=== PATIENT | female | born 1950 | race Caucasian/White ===

== ENCOUNTER 2022-04-15 19:25 | Emergency (ER) | payer MEDICARE, OTHER, SELFPAY ==
[2022-04-15] VITALS (9 sets, daily range): BP systolic 111–150; BP diastolic 59–93; PULSE 78–84; RESP 11–32; TEMP 36.4; O2SAT 95–98
--- NOTE | ~2022-04-15 | CT_ITS ---
EXAMINATION: CT chest abdomen pelvis wo con DATE: 04/15/2022 20:21 INDICATION: epigastric chest pain. BACK PAIN. HX OF CANCER IN NECK. . TECHNIQUE: Computed tomography (CT) of the chest, abdomen, and pelvis was performed without intraveno us contrast. Automated exposure control and iterative reconstruction technique were employed. The dos e-length product was 609.02 mGy-cm. COMPARISON: None FINDINGS: Thoracic aorta: Mild ectasia and arch calcification. Anemia. Lung parenchyma and airways: Emphysematous change. Bibasilar scar/atelectasis. Thoracic inlet, axillae and chest wall: No thyroid or soft tissue mass. No axillary lymphadenopathy. Tracheostomy tube, in good position. Mediastinum: No mass or lymphadenopathy. Heart and pericardium: Normal heart size. Mild aortic valve calcification. No pericardial effusion. Coronary artery calcifications: Absent. Pleura: No effusion or mass. Thoracic bones: No acute osseous finding in the chest. ABDOMEN/PELVIS: Liver: Normal. Biliary/Gallbladder: Gallbladder is normal. No bile duct dilation. Pancreas: No mass or duct dilation. Spleen: Normal. Adrenals:No mass. Kidneys: No mass, stone, or hydronephrosis on the right. Status post left nephrectomy. GI tract: PEG tube in good position, the skin thickening and a suggestion of mild inflammatory change along the tract. No small or large bowel dilation. Normal appendix. Diverticulosis, without divertic ulitis. Mesentery/Peritoneum: No ascites, mass, or free air. Retroperitoneum: No mass. Atherosclerotic abdominal aortic and/or arterial calcifications. Pelvis: The bladder is mostly decompressed. Uterus likely surgically absent. Soft Tissues: Uncomplicated bilateral fat-containing inguinal hernias. Abdominopelvic bones: No acute osseous finding in the abdomen/pelvis. IMPRESSION: Question of inflammation about the PEG tube tract, correlate clinically. Otherwise, no acute finding in the chest, abdomen, or pelvis. Reviewed, dictated and finalized at location [facility]. IMPRESSION: Question of inflammation about the PEG tube tract, correlate clinically. Otherw ise, no acute finding in the chest, abdomen, or pelvis.
--- NOTE | 2022-04-15 19:31 | ECG_ITS ---
Measurements Intervals [place] Rate: 80 P: 70 OR: 156 QRS: 95 QRSD: 93 T: 57 QT: 336 QTc: 388 Interpretive Statements SINUS RHYTHM BORDERLINE RIGHT AXIS DEVIATION [QRS AXIS > 90] LOW QRS VOLTAGE IN PRECORDIAL LEADS [QRS DEFLECTION < 1.0 mV IN CHEST LEADS] MINIMAL ST DEPRESSION [0.025+ mV ST DEPRESSION] NO PREVIOUS ECG AVAILABLE FOR COMPARISON Electronically Signed On 04-18-2022 19:37:22 CDT by Kayleigh Muñoz M.D.
[2022-04-15 19:50] LABS: Base Excess ABG -0.8 mmol/L (0-2); HCO3 ABG 22.5 mmol/L (23-29); Oxygen Content ABG 16.8 %vol (16.0-22.0); Oxygen Saturation ABG 96.4 % (95-97); Oxyhemoglobin 95.7 % (94-100); PCO2 ABG 32.9 mmHg (35-45); PO2 ABG 84.7 mmHg (75-85); Total Hemoglobin 12.4 g/dL (12.0-18.0); pH ABG 7.45 (7.35-7.45)
[2022-04-15 19:51] LABS: Modified Allen's Test Pass; Site Drawn LEFT RADIAL
[2022-04-15 19:51] LABS: Basophils Absolute Auto 0.03 K/mm3 (0.00-0.10); Basophils Percent Auto 0.6 % (0.0-1.0); Eosinophils Absolute Auto 0.04 K/mm3 (0.02-0.50); Eosinophils Percent Auto 0.9 % (1.0-6.0); Hematocrit 37.3 % (35.0-42.0); Hemoglobin 11.6 g/dL (11.7-13.8); Immature Granulocyte Absolute 0.01 K/mm3 (0.00-0.00); Immature Granulocyte Percent A 0.2 % (0.0-0.0); Lymphocytes Absolute Auto 0.75 K/mm3 (1.10-4.50); Lymphocytes Percent Auto 16.2 % (18.0-42.0); Mean Corpuscular HGB Conc 31.1 g/dL (32.0-36.0); Mean Corpuscular Hemoglobin 27.6 pg (27.0-31.0); Mean Corpuscular Volume 88.8 fL (78.0-102.0); Mean Platelet Volume 9.9 fl (9.2-11.8); Monocytes Absolute Auto 0.37 K/mm3 (0.10-0.90); Neutrophils Absolute Auto 3.4 K/mm3 (1.7-7.2); Neutrophils Percent Auto 74.1 % (50.0-70.0); Platelet Count Result 184 K/mm3 (150-420); Red Cell Distribution Width 13.5 % (11.6-14.4); White Blood Count 4.6 K/mm3 (4.8-10.8)
[2022-04-15 19:52] LABS: Device ROOM AIR
[2022-04-15] MEDS: ASPIRIN 81 MG CHEWABLE TABLET 324 MG PO (19:52)
[2022-04-15] MEDS: ONDANSETRON INJ 4 MG/2 ML VIAL IV PUSH (19:56)
[2022-04-15] MEDS: MORPHINE SULFATE (*CRX) 2 MG/ML INJ IV PUSH (19:57)
[2022-04-15] MEDS: NITROGLYCERIN SL 0.4 MG TABLET SUBLINGUAL (19:59)
[2022-04-15] MEDS: IPRATROPIUM 0.5 MG/ALBUTEROL SULFATE 2.5 MG AMPUL.NEB 3 ML INHALATION (20:00)
--- NOTE | 2022-04-15 20:01 | ED.CHESTPAIN ---
HPI - Chest Pain General Chief Complaint: Chest Pain Stated Complaint: back, chest pain Time Seen by Provider: 04/15/22 19:30 Source: patient and RN notes reviewed Mode of arrival: ambulatory Limitations: no limitations History of Present Illness MD complaint: chest pain and other (chronic mid back pain) Pertinent past history: other (COPD, tracheostomy post cancer Tx) Onset (ago): hour(s) (6) Timing of current episode: constant Prior episodes: Yes Onset: during rest Pain location: substernal and epigastric Pain radiation: back Severity: moderate Pain scale (0-10): 7 Quality: aching and dull Relieving factors: nothing Exacerbating factors: nothing Treatment prior to arrival: none Risk Factors Coronary artery disease risk factors: smoking history Related Data On Oral Contraceptives: No Home Medications Medication Instructions Recorded Confirmed albuterol sulfate 2.5 mg/3 mL 2.5 mg inhalation Q4-6H 04/15/22 04/15/22 (0.083 %) solution for nebulization amoxicillin 875 mg-potassium 1 tablet PO BID 04/15/22 04/15/22 clavulanate 125 mg tablet atorvastatin 40 mg tablet 40 mg PO DAILY 04/15/22 04/15/22 cetirizine 10 mg tablet 10 mg PO DAILY 04/15/22 04/15/22 famotidine 40 mg tablet 40 mg PO DAILY 04/15/22 04/15/22 lidocaine 5 % topical patch 1 patch transdermal Q12-24H 04/15/22 04/15/22 metoprolol succinate 25 mg 25 mg PO DAILY 04/15/22 04/15/22 tablet,extended release 24 hr omeprazole 40 mg capsule,delayed 40 mg PO DAILY 04/15/22 04/15/22 release tramadol 50 mg tablet 50 mg PO PRN PRN Pain 04/15/22 04/15/22 trazodone 100 mg tablet 100 mg PO HS 04/15/22 04/15/22 Allergies Allergy/AdvReac Type Severity Reaction Status Date / Time No Known Allergies Allergy Verified 04/15/22 19:40 Review of Systems Review of Systems: All systems reviewed & are unremarkable except as noted in HPI and below Constitutional: Constitutional: Reports no additional constitutional complaints Eyes: Eyes: Reports no additional eye complaints ENT: Reports system reviewed and no additional complaints, except as documented Cardiovascular: Cardiovascular: Reports chest pain Respiratory: Respiratory: Reports no additional respiratory complaints Gastrointestinal: Gastrointestinal: Reports no additional gastrointestinal complaints Genitourinary: Genitourinary: Reports no additional female genitourinary complaints Musculoskeletal: Musculoskeletal: Reports back pain Integumentary/Breasts: Skin/Breast: Reports system reviewed and no additional complaints, except as docu Neurologic: Reports system reviewed and no additional complaints, except as documented Psychiatric: Psychiatric: Reports no additional psychiatric complaints Endocrine: Endocrine: Reports no additional endocrine complaints Hematologic/Lymphatic: Hematologic/Lymphatic: Reports no additional hematologic/lymphatic complaints Allergic/Immunologic: Allergic/Immunologic: Reports no additional allergic/immunologic complaints PMFSH Past Medical History Medical History Back pain Chest pain of uncertain etiology Gastritis Exam Const: General: no acute distress and well nourished Nutritional Appearance: well nourished Orientation/consciousness: patient oriented x3 Limitations: no limitations HENMT: Head: normal to inspection Ears: external ears normal, TM's normal bilaterally and EAC's normal Face/Nose/Sinus: Normal external nose present, Normal nares present, normal facial exam and sinuses nontender Face and sinus: normal facial exam and sinuses nontender Mouth: Yes Normal oral and palatal mucosa present and Yes moist mucous membranes Teeth and gingiva: dentition normal Throat: posterior oropharynx normal Other: tracheostomy---function status quo. Eyes: Conjunctivae: conjunctivae normal Pupils: Equal, round and reactive pupils present EOM: EOMs intact bilaterally Neck: Neck: normal visual inspection
[2022-04-15] MEDS: methylPREDNISolone SOD SUCC 125 MG VIAL IV PUSH (20:07)
[2022-04-15 20:13] LABS: Alanine Aminotransferase 26 U/L (14-59); Albumin Level 3.7 g/dL (3.4-5.0); Alkaline Phosphatase 101 U/L (46-116); Anion Gap 8 mmol/L (8-16); Aspartate Amino Transferase 35 U/L (15-37); Bilirubin,Total 0.3 mg/dL (0.00-1.00); Blood Urea Nitrogen 18 mg/dL (7-18); Calcium 9.1 mg/dL (8.5-10.1); Carbon Dioxide 28 mmol/L (21-32); Chloride 100 mmol/L (98-108); Estimated CRCL calculation 37 ml/min; Estimated Glomerular Filt Rate 50; Glucose 111 mg/dL (70-99); Lipase 315 U/L (73-393); NT Pro B Type Natriuretic Pept 237 pg/mL (0-125); Osmolality Calculated 284 mOsm/kg (285-295); Sodium 136 mmol/L (136-145); Total Protein 7.3 g/dL (6.4-8.2)
[2022-04-15 20:14] LABS: Troponin I 4.1 ng/L (0.00-60.4)
== END 2022-04-15 21:30 | disposition home or self-care (01) ==
PROVIDERS: Emergency Provider Emergency Medicine
DX: R07.89 Other chest pain (principal); K29.70 Gastritis, unspecified, without bleeding; M54.9 Dorsalgia, unspecified
CPT/HCPCS: 36415; 36600; 71250; 74176; 80053; 82805; 83690; 83880; 84484; 85025; 93005; 94640; 96374; 96375; 99284; A9270; J2270; J2405; J2930

== ENCOUNTER 2023-07-22 10:11 | Emergency (ER) | payer MEDICARE, OTHER, SELFPAY ==
[2023-07-22] VITALS (34 sets, daily range): BP systolic 99–186; BP diastolic 48–147; PULSE 85–126; RESP 17–20; TEMP 36.9–37.1; O2SAT 83–100
--- NOTE | ~2023-07-22 | XR_ITS ---
EXAMINATION: XR chest 1V portable DATE: 07/22/2023 11:20 INDICATION: Shortness of breath TECHNIQUE: frontal view of the chest was obtained. COMPARISON: Chest radiograph dated 05/12/[address] dated 04/25/2022 FINDINGS: Mild emphysema with unchanged mild right apical pleural-parenchymal scarring. New pleural-based mass at the lateral right midlung zone and additional masslike opacity projecting over the central aspect of the right lower lung zone. Hazy opacity in the right lower lung zone with blunting at the and righ t costophrenic and cardiophrenic angles consistent with small pleural effusion with associated atelec tasis and/or pneumonia. Persistent mild discoid atelectasis/scarring at the lingula. No pulmonary eren ma, pneumothorax or left-sided pleural effusion. There are a few surgical clips project over the base of the neck and left upper chest. Heart size is normal. IMPRESSION: 1. Mild emphysema with new masslike opacities in the right mid and lower lung zone which are concerni ng for malignancy or metastatic disease. Recommend further evaluation with contrast-enhanced CT, at l east of the chest but would also consider including the abdomen and pelvis to assess for any addition al lesions suspicious for primary malignancy or metastatic disease. 2. Small right pleural effusion. Reviewed, dictated and finalized at location A. E PRODUCT FABRICATOR IMPRESSION: 1. Mild emphysema with new masslike opacities in the right mid and lower lung z one which are concerning for malignancy or metastatic disease. Recommend furthe r evaluation with contrast-enhanced CT, at least of the chest but would also co nsider including the abdomen and pelvis to assess for any additional lesions smith spicious for primary malignancy or metastatic disease. 2. Small right pleural effusion.
--- NOTE | ~2023-07-22 | CT_ITS ---
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 Dose reduction technique was used on this scan by joselyn vasquez automated exposure control and iterative reconstruction technique. The dose-length product (DL P) was 542.82 mGy-cm. COMPARISON: 04/15/2022 Findings: There is no evidence of any significant mediastinal, hilar or axillary lymphadenopathy. The mediastin al soft tissues and vascular structures appear normal. No pericardial effusion. There is a 4.3 cm probable necrotic lesion at the right lower lobe. Small right pleural effusion pres ent. No left pleural effusion. There is mild emphysema. The liver, spleen, pancreas, gallbladder, adrenals and right kidney are within normal limits. Patient status post left nephrectomy. No evidence of aortic aneurysm. No lymphadenopathy. No bowel obstruction or bowel wall thickening. There is no evidence to suggest acute appendicitis. Urinary bladder is unremarkable. No pelvic mass seen. No ascites. Impression: 4.3 cm probable necrotic lesion at the right lower lobe, suspicious for metastatic lesion given histo ry. Small right pleural effusion with mild bibasilar atelectatic change. Status post left nephrectomy. Reviewed, dictated and finalized at [facility]. NE BOSS Impression: 4.3 cm probable necrotic lesion at the right lower lobe, suspicious for metasta tic lesion given history. Small right pleural effusion with mild bibasilar atelectatic change. Status post left nephrectomy.
--- NOTE | 2023-07-22 10:19 | ED.SOB ---
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 No fever or chills MD elicited complaint: shortness of breath and pain with inspiration Pertinent past history: COPD Onset (ago): day(s) ( 5 days) Exacerbating factors: exertion Relieving factors: nothing Known history of: COPD Associated symptoms: pain with inspiration and sputum production Treatment prior to arrival: bronchodilator Related Data Home oxygen amount: none Home Medications Medication Instructions Recorded Confirmed albuterol sulfate 2.5 mg/3 mL 2.5 mg inhalation Q4-6H 04/15/22 04/15/22 (0.083 %) solution for nebulization amoxicillin 875 mg-potassium 1 tablet feeding tube BID 04/15/22 04/15/22 clavulanate 125 mg tablet atorvastatin 40 mg tablet 40 mg feeding tube DAILY 04/15/22 04/15/22 cetirizine 10 mg tablet 10 mg feeding tube DAILY 04/15/22 04/15/22 famotidine 40 mg tablet 40 mg feeding tube DAILY 04/15/22 04/15/22 lidocaine 5 % topical patch 1 patch transdermal Q12-24H 04/15/22 04/15/22 metoprolol succinate 25 mg 25 mg PO DAILY 04/15/22 04/15/22 tablet,extended release 24 hr omeprazole 40 mg capsule,delayed 40 mg feeding tube DAILY 04/15/22 04/15/22 release oxycodone 5 mg capsule 5 mg feeding tube PRN PRN Pain 04/15/22 04/15/22 trazodone 100 mg tablet 100 mg feeding tube HS 04/15/22 04/15/22 Allergies Allergy/AdvReac Type Severity Reaction Status Date / Time No Known Allergies Allergy Verified 07/22/23 10:17 Review of Systems Review of Systems: All systems reviewed & are unremarkable except as noted in HPI and below Constitutional: Constitutional: Reports as per HPI and Reports no additional constitutional complaints Eyes: Eyes: Reports as per HPI and Reports no additional eye complaints ENT: Reports system reviewed and no additional complaints, except as documented and Reports as per HPI Cardiovascular: Cardiovascular: Reports as per HPI and Reports no additional cardiovascular complaints Respiratory: Respiratory: Reports as per HPI, Reports chest congestion and Reports dyspnea Gastrointestinal: Gastrointestinal: Reports as per HPI and Reports no additional gastrointestinal complaints Genitourinary: Genitourinary: Reports no additional female genitourinary complaints and Reports as per HPI Musculoskeletal: Musculoskeletal: Reports no additional musculoskeletal complaints, Reports as per HPI and Reports back pain Integumentary/Breasts: Skin/Breast: Reports system reviewed and no additional complaints, except as docu and Reports as per HPI Neurologic: Reports system reviewed and no additional complaints, except as documented and Reports as per HPI Psychiatric: Psychiatric: Reports no additional psychiatric complaints and Reports as per HPI Endocrine: Endocrine: Reports no additional endocrine complaints and Reports as per HPI Hematologic/Lymphatic: Hematologic/Lymphatic: Reports no additional hematologic/lymphatic complaints and Reports as per HPI Allergic/Immunologic: Allergic/Immunologic: Reports no additional allergic/immunologic complaints and Reports as per HPI PMFSH Past Medical History Medical History Back pain Chest pain of uncertain etiology Gastritis Exam Const: General: no acute distress Orientation/consciousness: patient oriented x3 Limitations: no limitations HEN
--- NOTE | 2023-07-22 10:26 | ECG_ITS ---
Measurements Intervals [place] Rate: 110 P: 46 VA: 140 QRS: 160 QRSD: 85 T: 48 QT: 304 QTc: 411 Interpretive Statements SINUS TACHYCARDIA ATRIAL COUPLET AND ATRIAL PREMATURE COMPLEX PATTERN CONSISTENT WITH PULMONARY DISEASE BORDERLINE T WAVE ABNORMALITY- INF/LAT LEADS BASELINE ARTIFACT- I, II, III, AVR, AVL, AVF, V1, V4-V5 ABNORMAL ECG COMPARED TO ECG 04/15/2022 19:43:55 SINUS TACHYCARDIA NOW PRESENT Electronically Signed On 07-22-2023 11:21:57 STAFF SOFTWARE ENGINEER by Seamus Fragoso D.O.
[2023-07-22] MEDS: IPRATROPIUM 0.5 MG/ALBUTEROL SULFATE 2.5 MG AMPUL.NEB 3 ML INHALATION (10:36)
[2023-07-22 10:49] LABS: Basophils Absolute Auto 0.05 K/mm3 (0.00-0.10); Basophils Percent Auto 0.6 % (0.0-1.0); Eosinophils Absolute Auto 0.18 K/mm3 (0.02-0.50); Eosinophils Percent Auto 2.2 % (1.0-6.0); Hematocrit 31.8 % (35.0-42.0); Hemoglobin 9.7 g/dL (11.7-13.8); Immature Granulocyte Absolute 0.03 K/mm3 (0.00-0.00); Immature Granulocyte Percent A 0.4 % (0.0-0.0); Lymphocytes Absolute Auto 0.38 K/mm3 (1.10-4.50); Lymphocytes Percent Auto 4.7 % (18.0-42.0); Mean Corpuscular HGB Conc 30.5 g/dL (32.0-36.0); Mean Corpuscular Hemoglobin 25.5 pg (27.0-31.0); Mean Corpuscular Volume 83.5 fL (78.0-102.0); Mean Platelet Volume 8.6 fl (9.2-11.8); Monocytes Absolute Auto 0.56 K/mm3 (0.10-0.90); Monocytes Percent Auto 6.9 % (2.0-11.0); Neutrophils Absolute Auto 6.9 K/mm3 (1.7-7.2); Neutrophils Percent Auto 85.2 % (50.0-70.0); Platelet Count Result 279 K/mm3 (150-420); Red Blood Count 3.81 M/mm3 (4.20-5.40); White Blood Count 8.1 K/mm3 (4.8-10.8)
[2023-07-22 11:14] LABS: Appearance Urine Clear (Clear); Bilirubin Urine Negative (Negative); Blood Urine Trace-Intact (Negative); Color Urine Light Yellow (Yellow); Glucose Urine UA Negative (Negative); Ketones Urine Negative (Negative); Leukocyte Esterase Ur 3+ LEU/UL (Negative); Nitrate Urine Negative (Negative); Protein Urine Trace (Negative); Urobilinogen Urine 0.2 mg/dL (0.2-1.0); pH Urine 6.5 (5.0-8.0)
[2023-07-22 11:20] LABS: Add Urine Microscopic? YES
[2023-07-22 11:21] LABS: RBC Urine 0-2 /hpf (0-2)
[2023-07-22 11:22] LABS: Lactic Acid Reflex 1.3 mmol/L (0.4-2.0)
[2023-07-22 11:23] LABS: Squamous Epithelial Cell Urine Rare /hpf (Few); WBC Urine 51-75 /hpf (0-3)
[2023-07-22 11:24] LABS: Bacteria Urine Trace /hpf
[2023-07-22 11:25] LABS: Alanine Aminotransferase 23 U/L (14-59); Albumin Level 2.7 g/dL (3.4-5.0); Alkaline Phosphatase 93 U/L (46-116); Anion Gap 10 mmol/L (8-16); Aspartate Amino Transferase 16 U/L (15-37); Bilirubin,Total 0.3 mg/dL (0.00-1.00); Blood Urea Nitrogen 20 mg/dL (7-18); Calcium 8.9 mg/dL (8.5-10.1); Carbon Dioxide 28 mmol/L (21-32); Chloride 93 mmol/L (98-108); Estimated Glomerular Filt Rate 47; Glucose 110 mg/dL (70-99); NT Pro B Type Natriuretic Pept 183 pg/mL (0-125); Osmolality Calculated 275 mOsm/kg (285-295); Potassium 3.9 mmol/L (3.5-5.1); Sodium 131 mmol/L (136-145); Total Protein 7.3 g/dL (6.4-8.2); Troponin I 5.7 ng/L (0.00-60.4)
[2023-07-22 11:26] LABS: SARS-CoV-2 RNA PCR Negative (Negative)
[2023-07-22 11:35] LABS: Influenza A QL RT-PCR Negative (Negative); Influenza B QL RT-PCR Negative (Negative); RSV RNA, RT-PCR Negative (Negative)
[2023-07-22] MEDS: LACTATED RINGERS 500 ML 999 ML IV CONT (12:33)
--- NOTE | 2023-07-22 14:45 | PC.NURSE ---
ERP at bedside discussing plan of care for discharge, Waiting on patient's doctor from [facility] to call back with appointment time. Patient removed from monitor at this time. IV to be removed.
--- NOTE | 2023-07-22 15:01 | PC.NURSE ---
[facility] called with appointment time of 0830 tomorrow morning 07/23/2023. Requesting all imaging reports and images to be on disk sent with patient for appointment. Radiology office contacted for disk.
--- NOTE | 2023-07-22 15:15 | PC.NURSE ---
Patient ambulatory to bathroom, and back without any distress. Waiting on Radiology for imaging disk.
--- NOTE | 2023-07-22 15:25 | PC.NURSE ---
Radiology brought over disk, patient ready for discharge.
--- NOTE | 2023-07-24 12:53 | PC.NURSE ---
FINAL URINE CULTURE RESULTS: MIXED GENITAL FLOWER ISOLATED. NO ACTION NEEDED.
== END 2023-07-22 15:30 | disposition home or self-care (01) ==
PROVIDERS: Emergency Provider Internal Medicine Critical Care Medicine
DX: R91.8 Other nonspecific abnormal finding of lung field (principal); N39.0 Urinary tract infection, site not specified; J44.1 Chronic obstructive pulmonary disease with (acute) exacerbation; Z20.822 Contact with and (suspected) exposure to COVID-19
CPT/HCPCS: 36415; 71045; 71260; 74177; 80053; 81001; 83605; 83880; 84484; 85025; 87086; 87088; 87637; 93005; 94640; 96360; 99284; J7120; Q9967

== ENCOUNTER 2023-11-04 14:07 | Outpatient (CLI) | payer MEDICARE, OTHER, SELFPAY ==
--- NOTE | ~2023-11-04 | CT_ITS ---
Clinical Indication: Pneumonia CT Scan of the Chest with Contrast: Technique: Contiguous sections were acquired throughout the chest after intravenous administration of 75 cc of Omnipaque 350. Dose reduction technique was used on this scan by utilizing automated exposu re control and iterative reconstruction technique. The dose-length product (DLP) was 139.80 mGy-cm. COMPARISON: 07/22/2023 Findings: Tracheostomy cannula present. There is no evidence of any significant mediastinal, hilar or axillary lymphadenopathy. There is no f illing defect in the pulmonary arterial tree to suggest pulmonary embolus. There is no evidence of ao rtic dissection or aneurysm. There is no evidence of pleural or pericardial effusion. Mild emphysema is present. There is right basilar atelectasis or scarring. Previously noted right low er lobe necrotic/cavitary lesion is essentially completely resolved. There is a new 1 cm left lower l obe pulmonary nodule (axial image 81). There is an additional 0.6 cm of pleural or pulmonary nodule ( axial image 63). Several additional irregular nodules are present (axial images 74-78). Images through the upper abdomen reveal probable prior left nephrectomy. Impression: Several left lower lobe pulmonary nodules, as detailed above, largest measuring 1 cm. Diagnostic cons iderations include metastatic disease versus infectious/inflammatory process. Correlate clinically. R ecommend short-term follow-up CT in 1-3 months after any appropriate interval therapy. Previously noted necrotic lesion in the right lower lobe is essentially completely resolved, with sydney e residual scarring or atelectatic change present. Mild emphysema. Reviewed, dictated and finalized at [facility]. Impression: Several left lower lobe pulmonary nodules, as detailed above, largest measuring 1 cm. Diagnostic considerations include metastatic disease versus infectious/i nflammatory process. Correlate clinically. Recommend short-term follow-up CT in 1-3 months after any appropriate interval therapy. Previously noted necrotic lesion in the right lower lobe is essentially complet lakia resolved, with some residual scarring or atelectatic change present. Mild emphysema.
[2023-11-04 14:34] LABS: Estimated Glomerular Filt Rate 51
== END 2023-11-04 14:08 | disposition home or self-care (01) ==
LOC: CHSIMG 14:11
PROVIDERS: Visit Provider Physician Assistant
DX: J18.9 Pneumonia, unspecified organism (principal); R91.8 Other nonspecific abnormal finding of lung field; J43.9 Emphysema, unspecified
CPT/HCPCS: 71260; Q9967

== ENCOUNTER 2023-11-15 09:27 | Outpatient (CLI) | payer MEDICARE, OTHER, SELFPAY | END 2023-11-15 09:28 | disposition home or self-care (01) | LOC: CHSLAB 09:30 | PROVIDERS: PCP Physician Assistant; Visit Provider Physician Assistant | DX: R05.8 Other specified cough (principal) | CPT/HCPCS: 87070; 87147; 87181; 87186; 87205 ==

== ENCOUNTER 2023-11-19 07:46 | Outpatient (CLI) | payer MEDICARE, OTHER, SELFPAY ==
--- NOTE | ~2023-11-19 | DEXA_ITS ---
? Bone Density Report? Name:? GERMÁN SAUNDERS Patient ID:??? [id number] Age:? 73 Sex:? Female Ethnicity:? White Date of : 1950 Indication: hyperparathyroidism; height loss; cancer; asthma or emphysema; hysterectomy; Referring Provider: Teresa, Nani Shin Study: Bone densitometry was performed. Exam Date: November 19, 2023 Accession number: [id number] Bone Density: Region? BMD??? T-score? Z-score?? Classification AP Spine(L1-L4)? 0.861?? -1.7?0.5? Osteopenia Femoral Neck (Left)? 0.610?? -2.2? -0.3? Osteopenia Total Hip (Left)? 0.711?? -1.9? -0.3? Osteopenia Femoral Neck (Right)? 0.628?? -2.0? -0.1? Osteopenia Total Hip (Right)? 0.737?? -1.7? -0.1? Osteopenia Femoral Neck Mean? 0.619?? -2.1? -0.2? Osteopenia Total Hip Mean? 0.724?? -1.8? -0.2? Osteopenia World Health Organization criteria for BMD impression classify patients as: Normal (T-score at or above -1.0), Osteopenia (T-score between -1.0 and -2.5), or Osteoporosis (T-score at or below -2.5). 10-year Fracture Risk(1): Major Osteoporotic Fracture? 13% Hip Fracture? 2.9% Reported Risk Factors: [place] (), Neck BMD=0.610, BMI=26.0 (1) FRAX? Version 3.08. Fracture probability calculated for an untreated patient. Fracture probability may be lower if the patient has received treatment. Clinical Information Provided by Patient: Has the following medical conditions: Asthma or Emphysema, Cancer, Hyperparathyroidism, Hysterectomy Patient maximum height was 64 Menopause Age: 40 No regular weight bearing exercise Does not regularly consume dairy products Onset of menses at age 17 Number of children 0 Impression: The patient has low bone mass, based on the Left Femoral Neck T- score. Discussion: BONE DENSITY IS LOW AT ONE OR MORE SKELETAL SITES. This patient's lowest T-score is low at one or more skeletal sites.? It meets the World Health Organization's (WHO) criteria for ?low bone mass?? (T-score between -1.0 and -2.5).? The patient's 10-year risk of fracture as calculated by FRAX is less than the threshold where pharmacological therapy is recommended by the National Osteoporosis Foundation (NOF).? However, all treatment decisions require clinical judgment and consideration of individual patient factors, including patient preferences, comorbidities, previous drug use, risk factors not captured in the FRAX model (e.g., frailty, falls, vitamin D deficiency, increased bone turnover, interval significant decline in bone density) and possible under or overestimation of fracture risk by FRAX. The patient should follow a healthful lifestyle (good nutrition with adequate calcium and vitamin D, and appropriate weight-bearing exercise). Follow-Up: Consider repeating this study in 2 to 3 years to reassess this patient's status, or sooner if there is some new clinical indication. Reported by: Dr. Cordell Rowland on 49:16:00
--- NOTE | ~2023-11-19 | MM_ITS ---
EXAMINATION: MM screening tiara BI w naomi HISTORY: Screening mammogram TECHNIQUE: Craniocaudal and mediolateral oblique 3-D tomosynthesis images were obtained and synthetic 2-D images were generated. CAD analysis was submitted and interpreted. COMPARISON: No prior mammogram is available for comparison at this institution. BREAST PARENCHYMAL COMPOSITION: The breasts are extremely dense, which lowers the sensitivity of mamm ography. FINDINGS: There is no evidence of suspicious mass, calcification, or architectural distortion to sugg est malignancy in either breast. There has been no suspicious interval change. IMPRESSION: 1. No mammographic evidence of malignancy. 2. Close correlation with physical examination is imperative given the extremely dense fibroglandular stroma which may obscure masses. Ultrasound examination may be of supplemental value in this setting . Routine screening mammography in one year is recommended. BI-RADS Category 1: Negative Reviewed, dictated and finalized at location A. IMPRESSION: 1. No mammographic evidence of malignancy. 2. Close correlation with physical examination is imperative given the extremel y dense fibroglandular stroma which may obscure masses. Ultrasound examination may be of supplemental value in this setting. Routine screening mammography in one year is recommended. BI-RADS Category 1: Negative
== END 2023-11-19 07:47 | disposition home or self-care (01) ==
LOC: CHSIMG 07:48
PROVIDERS: PCP Physician Assistant; Visit Provider Physician Assistant
DX: Z12.31 Encounter for screening mammogram for malignant neoplasm of breast (principal); Z78.0 Asymptomatic menopausal state; M85.89 Other specified disorders of bone density and structure, multiple sites
CPT/HCPCS: 77063; 77067; 77080

== ENCOUNTER 2024-03-09 09:12 | Emergency (ER) | payer MEDICARE, OTHER, SELFPAY ==
[2024-03-09 09:12] VITALS: BP 134/77; PULSE 106; RESP 20; TEMP 36.2; O2SAT 95
--- NOTE | 2024-03-09 09:24 | ED.SKABFB ---
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 This started 3 days ago and currently her right lower leg is swollen and warm. No drainage. No fever or chills. patient has right lower lung nodules which has being followed by her primary care physician. The patient has lost more than 20 lb in the last 6 months. MD complaint: other ( Dog scratch) Onset (ago): day(s) ( 3 days) Tetanus up to date: unsure ( will call her physician and find out) Location: [facility] Severity: mild Quality: aching Relieving factors: none Exacerbating factors: none Associated symptoms: denies other symptoms Treatments prior to arrival: none Related Data Home Medications Medication Instructions Recorded Confirmed albuterol sulfate 2.5 mg/3 mL 2.5 mg inhalation Q4-6H 04/15/22 04/15/22 (0.083 %) solution for nebulization amoxicillin 875 mg-potassium 1 tablet feeding tube BID 04/15/22 04/15/22 clavulanate 125 mg tablet atorvastatin 40 mg tablet 40 mg feeding tube DAILY 04/15/22 04/15/22 cetirizine 10 mg tablet 10 mg feeding tube DAILY 04/15/22 04/15/22 famotidine 40 mg tablet 40 mg feeding tube DAILY 04/15/22 04/15/22 lidocaine 5 % topical patch 1 patch transdermal Q12-24H 04/15/22 04/15/22 metoprolol succinate 25 mg 25 mg PO DAILY 04/15/22 04/15/22 tablet,extended release 24 hr omeprazole 40 mg capsule,delayed 40 mg feeding tube DAILY 04/15/22 04/15/22 release oxycodone 5 mg capsule 5 mg feeding tube PRN PRN Pain 04/15/22 04/15/22 trazodone 100 mg tablet 100 mg feeding tube HS 04/15/22 04/15/22 Allergies Allergy/AdvReac Type Severity Reaction Status Date / Time No Known Allergies Allergy Verified 07/22/23 10:17 Review of Systems Review of Systems: All systems reviewed & are unremarkable except as noted in HPI and below Constitutional: Constitutional: Reports as per HPI and Reports no additional constitutional complaints Eyes: Eyes: Reports as per HPI and Reports no additional eye complaints ENT: Reports system reviewed and no additional complaints, except as documented Comments: Status post tracheostomy Cardiovascular: Cardiovascular: Reports as per HPI and Reports no additional cardiovascular complaints Respiratory: Respiratory: Reports as per HPI and Reports no additional respiratory complaints Gastrointestinal: Gastrointestinal: Reports as per HPI and Reports no additional gastrointestinal complaints Comments: PEG tube in place Genitourinary: Genitourinary: Reports no additional female genitourinary complaints and Reports as per HPI Musculoskeletal: Musculoskeletal: Reports no additional musculoskeletal complaints Integumentary/Breasts: Comments: right leg skin tear with surrounding redness/swelling Neurologic: Reports system reviewed and no additional complaints, except as documented and Reports as per HPI Psychiatric: Psychiatric: Reports no additional psychiatric complaints and Reports as per HPI Endocrine: Endocrine: Reports no additional endocrine complaints and Reports as per HPI Hematologic/Lymphatic: Hematologic/Lymphatic: Reports no additional hematologic/lymphatic complaints and Reports as per HPI Allergic/Immunologic: Allergic/Immunologic: Reports no additional allergic/immunologic complaints and Reports as per HPI PMF Past Medical History Medical History Back pain Chest pain of uncertain etiology Gastritis Course Course Emergency Course: right leg cellulitis Vital Signs Vital signs: Vital Signs Temperatur
--- NOTE | 2024-03-12 15:02 | PC.NURSE ---
PRELIMINARY ANAEROBIC CULTURE RESULTS: MODERATE GRAM NEGATIVE BACILLI, MODERATE GRAM POSITIVE COCCI IN CLUSTERS. NO ANAEROBES ISOLATED TO DATE FINAL AEROBIC CULTURE RESULTS: ISOLATE 1: MODERATE GROWTH OF STAPHYLOCOCCUS AUREUS ISOLATE 2: MODERATE GROWTH OF PROVIDENCIA RETTGERI. NO CHANGE IN TREATMENT AT THIS TIME PER DR BOYKIN
--- NOTE | 2024-03-16 13:42 | PC.NURSE ---
Final wound culture results, Stephylococcus aureus and providencia rettgeri, patient discharged on augmentin, no change in medication, no further treatment needed per Dr. Ma.
== END 2024-03-09 09:59 | disposition home or self-care (01) ==
PROVIDERS: Emergency Provider Internal Medicine Critical Care Medicine
DX: L03.115 Cellulitis of right lower limb (principal); J44.9 Chronic obstructive pulmonary disease, unspecified; E78.5 Hyperlipidemia, unspecified; Z85.89 Personal history of malignant neoplasm of other organs and systems; W45.8XXA Other foreign body or object entering through skin, initial encounter
CPT/HCPCS: 87070; 87075; 87147; 87181; 87186; 87205; 99283

== ENCOUNTER 2024-06-25 11:02 | Outpatient (CLI) | payer MEDICARE, OTHER, SELFPAY | END 2024-06-25 11:03 | disposition home or self-care (01) | LOC: CHSLAB 11:21 | PROVIDERS: PCP Family Medicine | DX: J18.9 Pneumonia, unspecified organism (principal) | CPT/HCPCS: 87070; 87181; 87186; 87205 ==

== ENCOUNTER 2024-11-20 08:29 | Outpatient (CLI) | payer MEDICARE, OTHER, SELFPAY ==
--- OUTSIDE RECORDS SUMMARY | 2024-11-20 08:40 | XMS_ITS | Clinical Summary ---
Author Organization [facility] Address [address] [place] [address] Care Team Providers Care Quality Assurance Analyst Name Role Phone Ema Hinkle MD Primary Care Provider [phone] Source Comments [facility],non-owned Affiliates and Associated Physician Practices is amultiple site organization consisting of ambulatory clinics and hospital sitesin [place], [place], [place] and [place]. This disclosure is being madepursuant to the Care Everywhere program and may not contain all information available regarding this patient. Last updated 18.[facility] Allergies Active Allergy Reactions Criticality Noted Date Comments Brimonidine Other Lisinopril Other Medications * Be aware that medications may not be up to date on this document. Alwaysverify current medications with the patient. albuterol HFA (PROAIR HFA) 108 (90 BASE) MCG/ACT inhaler Inhale 2 puffs by mouth every 6 hours as needed Active albuterol (5 MG/ML) 0.5% 2.5 mg, ipratropium 0.02 % 0.5 mg Active traZODone (DESYREL) 100 MG tablet Take 100 mg by mouth at bedtime Active budesonide-formo terol (SYMBICORT) 160-4.5 MCG/ACT inhaler Inhale 2 puffs by mouth 2 times daily Active amLODIPine (NORVASC) 10 MG tablet Take 10 mg by mouth once daily Active allopurinol (ZYLOPRIM) 300 MG tablet Take 300 mg by mouth once daily Active montelukast (SINGULAIR) 10 MG tablet Take 10 mg by mouth at bedtime Active LATANOPROST 0.005% PF EYE DROPS (COMPOUNDED) 1 drop every evening Active Calcium Carb-Cholecalcif sonal (CALCIUM + D3) 600-200 MG-UNIT Take 1 tablet by mouth once daily Active fluticasone propionate (FLONASE) 50 MCG/ACT nasal spray [place] 2 sprays into each nostril once daily Active Turmeric 500 MG Acti ve cetirizine (ZYRTEC) 10 MG tablet Take 10 mg by mouth once daily Active Active Problems Problem Noted Date Diagnosed Date Essential hypertension 05/08/2018 Oropharyngeal dysphagia 05/08/2018 Asthma 05/08/2018 Elevated liver enzymes 05/08/2018 Gout 05/08/2018 Hepatic steatosis 05/08/2018 Bilateral retinal detachment 05/08/2018 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 Encounters Date Type Department Care Team Description 11/11/2024 Telephone [facility] - ENT [address] , [address] [phone] Gerald Gupta MD Appointment 11/09/2024 Telephone [facility] - ENT [address] , [facility] [address] [place] [phone] Gerald Gupta MD Appointment 11/05/2024 Telephone [facility] - ENT [address] , [facility] [address] [place] [phone] Gerald Gupta MD Appointment from Last 3 Months Social History Tobacco Use Types Packs/Day Years Used Date Smoking Tobacco: Former Smokeless Tobacco: Never Alcohol Use Standard Drinks/Week Comments Yes 0 (1 standard drink = 0.6 oz pur e alcohol) Occasional Comments Unknown Sex and Gender Information Value Date Recorded Sex Assigned at Not on file Legal Sex Female 1:59 PM CDT Gender Identity Not on file Sexual Orientation Not on file Last Filed Vital Signs Vital Sign Reading Time Taken Comments Blood Pressure 138/75 05/08/2018 10:32 AM CDT Pulse 108 05/08/2018 10:32 AM CDT Temperature 36.8 C (98.3 F) 05/08/2018 10:32 AM CDT Respiratory Rate - - Oxygen Saturation - - Inhaled Oxygen Concentration - - Weight 82.1 kg (181 lb) 05/08/2018 10:32 AM CDT Height 162.6 cm (5' 4 ) 05/08/2018 10:32 AM CDT Body Mass Index 31.07 05/08/2018 10:32 AM CDT Plan of Treatment Upcoming Encounters Date Type Department Care Team (Late st Contact Info) Description 11/25/2024 2:30 PM CDT Office Visit [facility] - Otolaryngology [address] [place] [phone] [place] [address] [place] [address] Health Maintenance Due Date Last Done Comments BONE DENSITY TESTING 1950 COLOGUARD (AGES 45-75) - COL ON CA SCREENING 1952 COLON MONITORING 1952 COLONOSCOPY - COLON CA SCREENING 1952 CT COLONOGRAPHY - COLON CA SCREENING 1950 Colorectal Cancer Screening 1952 FIT - COLON CA SCREENING 1952 FLEX SIG - COLON CA SCREENING 1952 LIPID TESTING 1952 MAMMOGRAM 1952 HEPATITIS C SCREENING 04/24/1970 DTAP/TDAP/TD VACCINES (1 - Tdap) 1971 PNEUMOCOCCAL VACCINE 50+ (1 of 2 - PCV) 1971 ZOSTER VACCINE (1 of 2) 2002 Respiratory Syncytial Virus (RSV) Vaccine Pt: or over 60 yrs (1 - Risk 60-74 years 1-dose series) 2012 SCREENING FOR DIABETES 05/08/2021 8, 05/08/2018 COVID-19 VACCINE (1 - 2023-2 5 season) 2024 DEPRESSION SCREENING 07/08/2024 MEDICARE AWV CALENDAR YEAR 2024 INFLUENZA VACCINE (Season Ended) 2025 HEPATITIS B VACCINE Aged Out No longe r eligible based on patient's age to complete this topic HIB VACCINE Aged Out No longer eligi ble based on patient's age to complete this topic HPV VACCINE Aged Out No longer eligi ble based on patient's age to complete this topic MENINGOCOCCAL (Group B) VACCINE SHARED DECISION-MAKING Aged Out No longer eligible based on patient's age to complete this topic MENINGOCOCCAL GROUPS A/C/Y/W VACCINE Aged Out No longer eligible b ased on patient's age to complete this topic Procedures Procedure Name Priority Date/Time Associated Diagnosis Comments COMPREHENSIVE METABOLIC PANEL Routine 05/08/2018 12:04 PM CDT Nonalcoholic fatty liver disease Liver function abnormality from Last 3 Months or Most Recently Relevant to Health Maintenance Results * (ABNORMAL) COMPREHENSIVE METABOLIC PANEL (05/08/2018 12:04 PM CDT) BUN 15 7 - 26 mg/dL 05/08/2018 1:07 PM [facility] Creatinine 1.0 0.6 - 1.2 mg/dL 05/08/2018 1:07 PM [facility] Sodium 138 136 - 145 mmol/L 05/08/2018 1:07 PM [facility] Potassium 4.4 3.5 - 4.5 mmol/L 05/08/2018 1:07 PM [facility] Chloride 101 98 - 107 mmol/L 05/08/2018 1:07 PM [facility] CO2 24 22 - 29 mmol/L 05/08/2018 1:07 PM [facility] Glucose 89 70 - 115 mg/dL 05/08/2018 1:07 PM [facility] Calcium 10.7(H) 8.4 - 10.2 mg/dL 05/08/2018 1:07 PM [facility] Protein Total 7.6 6.0 - 8.3 g/dL 05/08/2018 1:07 PM [facility] Albumin 3.8 3.4 - 5.0 g/dL 05/08/2018 1:07 PM [facility] Bilirubin Total 0.5 0.2 - 1.2 mg/dL 05/08/2018 1:07 PM [facility] Alkaline Phosphatase 110 40 - 150 Units/L 05/08/2018 1:07 PM [facility] ALT 136(H) 0 - 55 Units/L 05/08/2018 1:07 PM [facility] AST 151(H) 5 - 34 Units/L 05/08/2018 1:07 PM [facility] Anion Gap 17 8 - 18 05/08/2018 1:07 PM [facility] BUN/Creatinine Ratio 15 7 - 23 05/08/2018 1:07 PM [facility] Osmolality Calculated 286 270 - 300 mOsm/kg 05/08/2018 1:07 PM [facility] Albumin/Globulin Ratio 1.0(L) 1.1 - 2.3 05/08/2018 1:07 PM [facility] eGFR 55(L) >60 mL/min/1.7 3 m2 05/08/2018 1:07 PM [facility] Blood BLOOD SPECIMEN / Unknown Lab Venipuncture / Unknown 05/08/2018 12:04 PM CDT 05/08/2018 12:15 PM T Wero Terrazas MD LAB - CHEMISTRY ORDERA BLES Final Result [address] [phone] from Last 3 Months or Most Recently Relevant to Health Maintenance Insurance [facility] [employer] MEDICARE MANAGED CARE MEDICARE ADV Care Teams Quality Assurance Analyst Relationship Specialty Start Date End Date Ema Hinkle MD PCP - General Family Medicine 04/15/18
--- OUTSIDE RECORDS SUMMARY | 2024-11-20 08:40 | XMS_ITS | Data Portability ---
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 Plan of Treatment Reminders Order Date Submit Date Provider Last Modified By Organization Details Last Modified Time Details Appointments Imagi ng 5.PRO 2024 12:15P M Radiology Not available Not available Not available Estab kayla Grimes nt 15.ES T 2024 01:00P M Dr. Fabio Tolliver Not available Not available Not available Visua l Field 20.ES T 2024 09:00A M Ophthalmology Not available Not available Not available OCT 10.ES T 2024 09:20A M Ophthalmology Not available Not available Not available Estab kayla Grimes nt 10.ES T 2024 09:30A M Dr. Kaden Garcia Not available Not available Not available Lab None recor ded. Referral None recor ded. Procedures None recor ded. Surgeries None recor ded. Imaging CT, chest , w/o contr ast 2024 025 [facility] Only - De Radiology, [address] [place] [address], [id number], 11/03/2024 13:44:17 Medication Orders Augme ntin ES-60 0 600 mg-42 .9 mg/5 mL oral suspe nsion 2023 024 [facility], [address] [place], [address], 06/24/2024 10:50:49 Patient TargetsNo targets recorded. Patient InstructionsNo instructions recorded. Reason for Referral None Reported. Results Created Date Observation Date Name Description Value Unit Range Abnormal Flag Note LastModifiedBy Organization Detail LastModifiedTime 06/24/20 24 06/24/2024 CT, chest , w/o contr ast [facility] 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 Pulmon estefania nodula rity. Follow -up. TECHNI QUE: CT of the chest was perfor med withou t IV contra st admini strati on. Automa fabien exposu re contro l was used as a dose optimi zation techni que for the examin ation. COMPAR SHERRI: PET scan from . CT chest from FINDIN GS: New consol idativ e opacit y is noted in the left lung base on series 302 image 170 measur ing approx imatel y 3 cm x 4 cm. There has been interv al progre ssion of the peribr onchia l nodula rity in the lower lobes. Oval nodule in the left base on series 302 image 130 measur es 1.8 cm x 1 cm. There are mild emphys ematou s change s. There is a trache ostomy tube in place. Mild diffus e bronch ial thicke armando is reiden tified . There is mild mucous debris in the left mainst em bronch us. Lower lobe bronch iectat ic change s are seen in the right base. Ground glass opacit y in the left upper lobe on image 118 is noted. A few additi onal scatte red upper lobe pulmon estefania nodule s are seen. These are unchan ged. There is no pleura l or perica rdial effusi on. Heart size is upper limits of normal . The thorac ic aorta is normal calibe r with mild athero sclero sis. No thorac ic lympha denopa thy seen. Possib le pulmon estefania parenc hymal hernia tion the right apex is stable . Images throug h the upper abdome n show no obviou s new liver lesion or adrena l pathol ogy. The left kidney is absent . Partia lly calcif ied right renal arcuat e artery aneury sm measur ing 1 cm suspec fabien on image 36 mild degene rative change s. No fractu re or aggres sive bony proces s.. IMPRES LAYNE: 1. There is a new consol idativ e opacit y in the left base which is rather nonspe cific and may be infect ious or inflam matory in etiolo gy rather than neopla stic. Additi onal nodula rity seen in the left base. Lower lobe peribr onchia l nodula rity has increa sed since prior exam. Close interv al follow -up CT of the chest recomm ended in 3 months . 2. Additi onal scatte red pulmon estefania micron odules are stable . Electr onical ly signed in Gomez cribe by: MARSHALL Nam MD on: 4 9:13 AM cc: Page PAGE 1 of [facility] 1 [id number] Sc Only - Sc Radiology [address] [place] [address], [id number], 06/24/2024 10:30:32 06/25/20 24 06/24/2024 6 minut e walk test* No observ ation record ed. BARCODE Andrea Tolliver MD [address] [place] [address], [id number], 06/25/2024 14:26:45 08/06/19 25 08/06/2024 XR, chest , 2 view [facility] [address] [facility] [place] [address] Teleph one [phone] Name: Marcelina Simeon [id number] Exam Date: 2024 Age: 74 Physic preston: Justine freeman MD, Andrea : 1949 Examin ation: XR CHEST 2 VIEWS Exam: XR CHEST 2 VIEWS HISTOR Y: 1 month follow up pneumo mariaa. COMPAR SHERRI: 24 FINDIN GS: There is some opacit y in the right lower lobe in the lung base vacuum worker iorly which maybe relate d to pneumo mariaa or scarri ng. Mild patchy opacit ies in the left lower lung sugges ting pneumo mariaa. Cardia c size and pulmon estefania vascul arity are within normal limits . Surgic al clips are projec fabien over the upper chest and lower neck. A gastro stomy tube is seen in the upper abdome n to the left of midlin e IMPRES LAYNE: Right lower lobe lung base pneumo mariaa or scarri ng. Mild patchy pneumo mariaa in the left lower lung Electr onical ly signed in Gomez cribe by: RONAN EDEN MD on:07/10 12:12 PM cc: Page PAGE 1 of [facility] 1 Sc Only - Sc Radiology [address] [place] [address], [id number], 08/06/2024 13:19:04 11/04/19 25 11/03/2024 CT, chest , w/o contr ast [facility] [address] [place] [address] Teleph one [phone] Name: Marcelina Simeon 1749 Exam Date: 2024 Age: 74 Physic preston: Justine freeman MD, Andrea : 1949 Examin ation: CT CHEST WO EXAM: Comput ed Tomogr aphy (CT) of the Chest HISTOR Y: Follow -up lung nodule . 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 Right total laryng ectomy . Former smoker .. COMPAR SHERRI: 2023 TECHNI QUE: CT of the chest was perfor med withou t IV contra st accord ing to standa rd protoc ol. Automa fabien exposu re contro l was used as a dose optimi zation techni que for this exam. FINDIN GS: Heart/ Perica rdium: The trache ostomy tube has its tip below the level of the clavic ular head. The heart is enlarg ed. No perica rdial effusi on. Medias tinum/ Paulina: The trache a is patent and midlin e. Scatte red subcen timete r medias tinal lymph nodes are presen t. Lungs/ Pleura : Emphys ematou s change s are seen. Minima l bronch iectas is is noted. Consol idativ e change s in the left lower lobe have decrea sed. Mild tree-i n-bud nodula rity seen in the left upper lower lobes. There is a wedge- shaped area of consol idatio n in the periph jamel of the right lower lobe (302/1 13). A 9 mm nodule is again seen in the left lower lobe (302/1 75). A 3 mm nodule is again seen in the left lower lobe (302/1 37).. No pneumo thorax or pleura l effusi on is presen t. Chest Wall/B reasts : The chest wall is unrema rkable . There is no signif icant suprac lavicu lar or axilla ry lympha denopa thy. The visual ized abdomi nal struct ures are normal . Postsu rgical change s are seen in the neck. Splenu les are noted. The gastro stomy tube can be follow ed to the stomac h. VASCUL AR: There is athero sclero tic diseas e of the aorta and aortic branch es. MUSCUL OSKELE BARB: The osseou s thorax is intact . Mild degene rative change s are seen in the thorac ic spine. IMPRES LAYNE: 1. Wedge- shaped consol idativ e region in the right lower lobe. End consid eratio ns would includ e pulmon estefania infarc t or an infect ious/i nflamm atory proces s. 2. Decrea sed consol idativ e change s in the left lower lobe. New tree-i n-bud nodula rity in the left upper and lower lobes are felt to be infect ious or inflam matory . 3. Unchan ged remain ing left lower lobe pulmon estefania nodule s 4. Mild emphys ematou s change s Electr onical ly signed in Gomez cribe by: COSTA Rothman MD on:10/07 12:41 PM cc: Page PAGE 1 of [facility] ES 1 De Only - Sc Radiology [address] [place] [address], [id number], 11/03/2024 13:54:28 Result Notes None recorded. Problems Name Problem SNOMED Code Status Onset Date Resolution Date Notes Provider Name and Address Organization Details Recorded Time Ulcer of lower extremity 01498916 Active 2023 Siddharth Price MD [address] [place] [address], [phone], [facility] 4 12:26:19 Organism isolated in wound swab by culture 738904707 Active 2023 Siddharth Price MD [address] [place] [address], [phone], [facility] 4 12:26:34 Edema of foot 840152169 Active 2023 Siddharth Price MD [address] [place] [address], [phone], [facility] 4 12:26:41 Stasis dermatitis 68943588 Active 2023 Siddharth Price MD [address] [place] [address], [phone], [facility] 4 12:26:48 History of Carey's palsy 704134853 [facility] 10[facility]12:59 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, [facility] 4 10:12:59 Pneumonia 471641616 Active 2023 Andrea Tolliver MD [address] , [place], [address], [facility] 4 10:44:22 Abnormal sputum 888230680 Active 2024 Kyung Brewer [facility] 5 11:27:05 Pulmonary aspiration 29321960 Active 2024 Andrea Tolliver MD [address] , [place], [address], [facility] 5 14:23:25 Nodule of lung 741166987 Active 2023 [facility] 4 09:33:54 Aphonia 894368201 Active 2023 Natalia Wong, [employer] [address], [place], [address], [facility] 4 12:23:52 Chronic obstructive pulmonary disease 25059930 Active 2023 Andrea Tolliver MD [address] , [place], [address], [facility] 4 17:55:56 Malignant tumor of larynx 346024551 Active 2023 Andrea Tolliver MD [address], [place], [address], [facility] 4 17:56:12 Problem Notes None recorded. Procedures Surgical History Date Name Laterality Status Provider Name and Address Organization Details Recorded Time 12/14/19 Date of Last Mammogram completed Not Available Health Note 12/22/2023 15:20:09 Total hysterectomy completed Not Available Health Note 12/22/2023 10:53:39 delivery completed Not Available Health Note 12/22/2023 15:20:07 Colonoscopy with biopsy completed Not Available Health Note 02/25/2024 09:10:12 Imaging Results Imaging Date Name Status LastModified by Organiz ation Details LastModified Time 06/24/2024 CT, chest, w/o contrast completed [id number] Sc Only - De Radiology [address] [place] [address], [id number], 06/24/2024 10:30:32 06/24/2024 6 minute walk test* completed BARCODE Andrea Tolliver MD [address] [place] [address], [id number], 06/25/2024 14:26:45 08/06/2024 XR, chest, 2 view completed [id number] Sc Only - De Radiology [address] [place] [address], [id number], 08/06/2024 13:19:04 11/03/2024 CT, chest, w/o contrast completed [id number] Sc Only - De Radiology [address] [place] [address], [address], 11/03/2024 13:54:28 Procedure Notes None recorded. Medical Equipment None Reported. Allergies No known drug allergies Medications Name Sig Start Date Stop Date Status Note LastModified by Organization Details LastModified Time latanoprost 0.005 % eye drops INSTILL 1 DROP INTO EACH EYE IN THE EVENING active Not Available Not Available No t Available atorvastati n 40 mg tablet TAKE 1 TABLET BY MOUTH ONCE DAILY active Not Available Not Available No t Available doxycycline hyclate 100 mg capsule TAKE 1 CAPSULE BY MOUTH TWICE DAILY 12/23 completed Not Available Not Available Not Available tizanidine 2 mg tablet TAKE 1 TO 2 TABLETS BY MOUTH AT BEDTIME NEEDED FOR BACK PAIN active Not Available Not Available No t Available albuterol sulfate 2.5 mg/3 mL (0.083 %) solution for nebulizatio n USE 1 VIAL IN NEBULIZER EVERY 4 HOURS NEEDED active Not Available Not Available No t Available cetirizine 10 mg tablet TAKE 1 TABLET BY MOUTH ONCE DAILY active Not Available Not Available No t Available azithromyci n 250 mg tablet 12/23 completed Not Available Not Available Not Available nystatin 100,000 unit/gram topical ointment APPLY OINTMENT TOPICALLY TWO TIMES DAILY AND USE FOR 48 HOURS AFTER RASH IS GONE active Not Available Not Available No t Available sulfamethox azole 400 mg-trimetho prim 80 mg tablet TAKE 1 TABLET BY MOUTH TWICE DAILY FOR 14 DAYS 12/23 completed Not Available Not Available Not Available hydrocodone 5 mg-acetamin ophen 325 mg tablet TAKE 1 TO 2 TABLETS BY MOUTH EVERY 4 HOURS NEEDED active Not Available Not Available No t Available ondansetron HCl 4 mg tablet TAKE 1 TABLET BY MOUTH THREE TIMES DAILY NEEDED 12/23 completed Not Available Not Available Not Available famotidine 40 mg tablet TAKE 1 TABLET BY MOUTH TWICE DAILY active Not Available Not Available No t Available prednisone 20 mg tablet TAKE 2 TABLETS BY MOUTH ONCE DAILY FOR 5 DAYS 06/24 completed Not Available Not Available Not Available meclizine 12.5 mg tablet TAKE 1 TABLET BY MOUTH AT BEDTIME FOR 5 DAYS active Not Available Not Available No t Available triamcinolo ne acetonide 0.5 % topical ointment APPLY OINTMENT TOPICALLY TWICE DAILY MIXED WITH NYSTATIN 06/24 completed Not Available Not Available Not Available hydroxyzine HCl 50 mg tablet TAKE 1 TABLET BY MOUTH AT BEDTIME FOR SLEEP/ANX IETY active Not Available Not Available No t Available amlodipine 5 mg tablet TAKE 1 TABLET BY MOUTH ONCE DAILY active Not Available Not Available No t Available sulfamethox azole 800 mg-trimetho prim 160 mg tablet TAKE 1 TABLET BY MOUTH TWICE DAILY 11/03 completed Not Available Not Available Not Available hydrocodone 10 mg-acetamin ophen 325 mg tablet TAKE 1/2 TO 1 (ONE-HALF TO ONE) TABLET BY MOUTH EVERY 4 HOURS NEEDED active Not Available Not Available No t Available amoxicillin 400 mg-potassiu m clavulanate 57 mg/5 mL oral suspension TAKE 10ML VIA PEG TUBE TWICE DAILY FOR 21 DAYS (REFILL EVERY 10 DAYS) 12/23 completed Not Available Not Available Not Available nystatin-tr iamcinolone 100,000 unit/gram-0 .1 % topical ointment APPLY ONE APPLICATI ON TWO TIMES DAILY 06/24 completed Not Available Not Available Not Available trazodone 100 mg tablet TAKE 1 TO 2 TABLETS BY MOUTH AT BEDTIME active Not Available Not Available No t Available levothyroxi ne 50 mcg tablet TAKE 1 TABLET BY MOUTH ONCE DAILY active Not Available Not Available No t Available triamcinolo ne acetonide 0.1 % topical ointment APPLY OINTMENT TOPICALLY TO AFFECTED AREA TWICE DAILY AND USE FOR 48 HOURS AFTER RASH IS GONE. 06/24 completed Not Available Not Available Not Available Augmentin ES-600 600 mg-42.9 mg/5 mL oral suspension Take 1.25 mL every 12 hours by oral route. 2023 active Not Available Not Available Not Avai lable omeprazole 20 mg capsule,del ayed release TAKE 1 CAPSULE BY MOUTH ONCE DAILY active Not Available Not Available No t Available montelukast 10 mg tablet TAKE 1 TABLET BY MOUTH ONCE DAILY active Not Available Not Available No t Available metoprolol succinate ER 25 mg tablet,exte nded release 24 hr TAKE 1 TABLET BY MOUTH ONCE DAILY 06/24 completed Not Available Not Available Not Available levofloxaci n 500 mg tablet Take 1 tablet every 24 hours by oral route for 10 days. 08/06 completed Not Available Not Available Not Available albuterol sulfate HFA 90 mcg/actuati on aerosol inhaler INHALE 2 PUFFS BY MOUTH EVERY 4 TO 6 HOURS NEEDED active Not Available Not Available No t Available cefdinir 300 mg capsule TAKE 1 CAPSULE BY MOUTH TWICE DAILY 11/03 completed Not Available Not Available Not Available ipratropium bromide 21 mcg (0.03 %) nasal spray USE 2 SPRAY(S) IN EACH NOSTRIL TWICE DAILY active Not Available Not Available No t Available ipratropium bromide 0.02 % solution for inhalation USE 1 VIAL IN NEBULIZER 4 TIMES DAILY active Not Available Not Available No t Available amoxicillin 875 mg-potassiu m clavulanate 125 mg tablet TAKE 1 TABLET BY MOUTH EVERY 12 HOURS 06/24 completed Not Available Not Available Not Available levofloxaci n 250 mg/10 mL oral solution Take 20 mL every day by oral route for 10 days. 08/06 completed Not Available Not Available Not Available arformotero l 15 mcg/2 mL solution for nebulizatio n Inhale 2 mL twice a day by inhalatio n route. active Not Available Not Available No t Available Symbicort 80 mcg-4.5 mcg/actuati on HFA aerosol inhaler INHALE 2 PUFFS BY MOUTH TWICE DAILY 06/24 completed Not Available Not Available Not Available BD PosiFlush Normal Saline 0.9 % injection syringe INJECT 3ML INSTALLAT ION INTO TRACH PRIOR TO SUCTIONIN G FOUR TIMES DAILY NEEDED FOR 4 WEEKS 06/24 completed Not Available Not Available Not Available levocetiriz ine 5 mg tablet TAKE 1 TABLET BY MOUTH ONCE DAILY active Not Available Not Available No t Available Vitals Date Recorded Body height Body mass index (BMI) Body weight Heart rate Systolic blood pressure Diastolic blood pressure Provider Name and Address Organization Details Last Updated DateTime 4 162.56 cm 23 kg/m2 67732.3 8 g 107 /min 140 mm[Hg] 50 mm[Hg] [facility] 4 10:12:30 Date Recorded Oxygen saturation Oxygen saturation in Arterial blood by Pulse oximetry Provider Name and Address Organization Details Last Updated DateTime 06/24/2024 92 % 92 % Andrea Tolliver MD [address] [place] [address], [phone], [facility] 06/24/2024 10:43:35 Date Recorded Body height Body mass index (BMI) Body weight Heart rate Oxygen saturation Oxygen saturation in Arterial blood by Pulse oximetry Systolic blood pressure Diastolic blood pressure Provider Name and Address Organization Details Last Updated DateTime 5 162.56 cm 21.5 kg/m2 09440.0 5 g 109 /min 92 % 92 % 130 mm[Hg] 60 mm[Hg] [facility] 5 14:02:58 Date Recorded Body height Body mass index (BMI) Body weight Heart rate Oxygen saturation Oxygen saturation in Arterial blood by Pulse oximetry Systolic blood pressure Diastolic blood pressure Provider Name and Address Organization Details Last Updated DateTime 5 162.56 cm 20.9 kg/m2 29055.8 3 g 91 /min 94 % 94 % 120 mm[Hg] 62 mm[Hg] Manuel Muhammad e [facility] 14:00:30 Social History Question Answer Notes LastModified by Organizat ion Details LastModified Time Tobacco Smoking Status Former Smoker Manuel Eisenberg null, [facility] 06/24/2024 10:15:36 Do You Have An Advance Directive? No [email or web address] Information not available 01/12/2024 What Is Your Level Of Caffeine Consumption? None [email or web address] Information not available 01/12/2024 How Many Times Per Week Do You Exercise? 3-4 Times Per Week [email or web address] Information not available 01/12/2024 When Did You Quit Smoking? 2003 [email or web address] Information not available 01/12/2024 Do You Have A Medical Power Of Manager Business Intelligence? Yes [email or web address] Information not available 01/12/2024 What Was The Date Of Your Most Recent Tobacco Screening? 01/14/2024 [email or web address] Information not available 01/12/2024 What Is Your Relationship Status? [email or web address] Information not available 01/12/2024 Sex: Unknown Functional Status Question Answer Note LastModified by Organizat ion Details LastModified Time How many times per week do you consume alcohol? Less than 1 time per week [email or web address] Information not available 01/12/2024 Do you use any illicit or recreational drugs? No [email or web address] Information not available 01/12/2024 What is your level of alcohol consumption? Occasional [email or web address] Information not available 01/12/2024 Are you currently employed? 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 [email or web address] Information not available 01/12/2024 What is your exercise level? Moderate [email or web address] Information not available 01/12/2024 Mental Status None recorded. Family History Relationship Description Onset Age of this Age Resolved Age Notes LastModified by Organization Details LastModified Time Mother Alzheimer's disease [email or web address] Not available 2023 10:53:38 Mother Family history of malignant neoplasm [email or web address] Not available 2023 10:53:38 Mother Hypertensive disorder [email or web address] Not available 2023 10:53:38 Mother Chronic obstructive pulmonary disease [email or web address] Not available 2023 15:20:06 Sister Asthma [email or web address] Not available 10:53:38 Sister Hypertensive disorder [email or web address] Not available 2023 10:53:38 Sister Kidney disease [email or web address] Not available 2023 10:53:38 Sister Chronic obstructive pulmonary disease [email or web address] Not available 2023 15:20:06 Father Family history of malignant neoplasm [email or web address] Not available 2023 10:53:38 Father Chronic obstructive pulmonary disease [email or web address] Not available 2023 10:53:38 Maternal Grandfather Family history of malignant neoplasm [email or web address] Not available 2023 10:53:38 Paternal Grandfather Family history of malignant neoplasm [email or web address] Not available 2023 10:53:38 Medical History Condition Response Diabetes N Anxiety Disorder N Bleeding Disorder N Attention-deficit Hyperactivity Disorder N High Blood Pressure Y Arthritis N Hyperlipidemia N Cancer Y Stroke N Thyroid Problems N Asthma Y Depression N COPD Y Anemia N Seizures N Heart Disease N Fibromyalgia N Osteoporosis N Kidney Disease N Gynecological History Statement/Question Response Age at Menarche 17 Date of Last Mammogram 12/14/2023 Obstetrics History GPAL:G 0 P 0 0 0 0 Immunizations Vaccine Type Date Status Note Provider Nam e and Address Organization Details Recorded Time pneumococcal polysaccharide PPV23 5 completed [facility] 11/03/2024 14:00:47 zoster live 3 completed [facility] 11/03/2024 14:00:47 Influenza, split virus, quadrivalent, preservative 9 completed [facility] 12/24/2023 17:29:41 Influenza, split virus, quadrivalent, preservative 7 completed [facility] 12/24/2023 17:29:41 Influenza, high-dose, quadrivalent, PF 2 completed [facility] 12/24/2023 17:29:41 COVID-19, mRNA, LNP-S, PF, 30 mcg/0.3 mL dose 1 completed Manuelcodi Eisenberg [facility] 12/24/2023 17:29:41 COVID-19, mRNA, LNP-S, PF, 30 mcg/0.3 mL dose 1 completed Manuel Eisenberg [facility] 12/24/2023 17:29:41 COVID-19, mRNA, LNP-S, PF, 30 mcg/0.3 mL dose 1 completed Manuel Eisenberg [facility] 12/24/2023 17:29:41 Pneumococcal conjugate PCV20, polysaccharide [id number] conjugate, adjuvant, PF 3 completed Manuelcodi Eisenberg [facility] 12/24/2023 17:29:41 pneumococcal polysaccharide PPV23 6 completed Manuelcodi Eisenberg [facility] 12/24/2023 17:29:41 pneumococcal polysaccharide PPV23 7 completed Manuel Eisenberg [facility] 12/24/2023 17:29:41 Tdap 4 completed Manuelcodi Eisenberg [facility] 12/24/2023 17:29:41 Pneumococcal conjugate PCV 13 0 completed Manuelcodi Eisenberg [facility] 12/24/2023 17:29:41 Pneumococcal conjugate PCV 13 8 completed Manuel Eisenberg [facility] 12/24/2023 17:29:41 Influenza, high-dose, trivalent, PF 8 completed Manuel Eisenberg [facility] 12/24/2023 17:29:41 Influenza, split virus, trivalent, preservative 8 completed Manuel Eisenberg [facility] 12/24/2023 17:29:41 Influenza, split virus, quadrivalent, PF 0 completed Manuel Eisenberg [facility] 12/24/2023 17:29:41 Past Encounters Encounter ID Performer Location Encounter Start Date Encounter Closed Date Diagnosis/Indication Diagnosis SNOMED-CT Code Diagnosis ICD10 Code Diagnosis Note [id number] Natalia Wong, [facility] [facility] [address] [place] [phone] 12/13/2023 09:08:50 12/13/2023 16:52:02 Aphonia [id number] R49.1 Marcelina is progressin g in alaryngeal voice restoratio n. She is able to produce intelligib le speech through electrolar ynx at the sentence level. She is also increasing independen ce in care and usage of HME accessorie s. Status of therapy goals is as follows:1. Patient will communicat e intelligib ly through alaryngeal communicat ion at the conversati on level.Goal not yet met2. Patient will independen tly care for stoma and accessorie s.Goal met3. Patient will be educated regarding benefits of pulmonary restoratio n.Goal ongoing4. Patient will tolerate the least restrictiv e diet with intake adequate to support nutritiona l needs.Goal not met Plan:Recom mend speech therapy for 6 visits over the next 12 weeks. Therapy objectives will include the followin. Patient will communicat e intelligib ly through a laryngeal communicat ion at the conversati on level.2. Patient will be educated regarding benefits of pulmonary restoratio n.3. Patient will tolerate the least restrictiv e diet with intake adequate to support nutritiona l needs. [id number] Natalia Wong, [facility] [employer] [facility] [address] [place] [phone] 12/27/2023 08:15:34 12/27/2023 11:34:37 Aphonia [id number] R49.1 Marcelina is progressin g in alaryngeal voice restoratio n. She is able to produce intelligib le speech through electrolar ynx at the sentence level. She is also increasing independen ce in care and usage of HME accessorie s. She describes difficulty swallowing , and diet is limited to sips of liquid with nutrition via PEG. Plan:Oliverio nue speech therapy plan of care. [id number] Andrea Tolliver MD [facility] ([place]) [address] [place] [address] 12/24/2023 16:36:39 12/25/2023 11:30:53 Nodule of lung [id number] R91.1 I reviewed the PET scan in detail with Zakiya. The left lower lobe nodules are not hypermetab olic and this is reassuring that this is probably inflammato ry which makes the most sense. 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 She has follow-up scheduled with ENT for this. I recommende d she have another follow-up CT scan in 6 months for further surveillan ce. Chronic ob structive pulmonary disease [id number] J44.9 For COPD she will continue DuoNeb with hypertonic saline for pulmonary hygiene. She is aware that she needs to let us know if she has any change in her sputum color or increase in secretions and will need to collect sputum for culture and sensitivit y. 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 No fracture is seen. There is normal alignment of the vertebrae. There is multilevel mild degenerati ve disc narrowing. Paravertebral soft tissues appear normal. Impression: Multilevel mild degenerative disc narrowing. Reviewed, dictated and finalized at [facility]. Impression: Multilevel mild degenerative disc narrowing. "
--- OUTSIDE RECORDS SUMMARY | 2024-11-20 08:40 | XMS_ITS | Encounter Summary ---
Author Organization [facility] Address [facility] [place] [address] Care Team Providers Care Hydraulic Chair Assembler Name Role Phone Ema Hinkle MD Primary Care Provider [phone] Quincy Joy MD Unavailable [phone] Montserrat Ott MD Unavailable Unavailable Marti Neely MD,PHD Unavailable + [phone] Encounter Details Date Type Department Care Team (Late st Contact Info) Description 05/22/2023 [facility] Documentation [facility] [address] [place], [place] [address] Seth Melvin MD [address] [place] [address] Social History Tobacco Use Types Packs/Day Years Used Date Smoking Tobacco: Former Cigarettes 1 30 1 974 - 2004 Smokeless Tobacco: Former Chew Alcohol Use Standard Drinks/Week Comments Not Currently 0 (1 standard drink = 0.6 oz pur e alcohol) AUDIT-C Answer Date Recorded Frequency of Alcohol Consumption Monthly or less 07/25/2018 Average Number of Drinks 1 or 2 019 Frequency of Binge Drinking Monthly 07/08 Comments No Sex and Gender Information Value Date Recorded Sex Assigned at Not on file 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 Answer Date of Assessment Author Status No 01/31/2023 12:27 PM Marcella Muir RN Active * Do you have serious difficulty walking or climbing stairs? Answer Date of Assessment Author Status No 08/23/2022 10:33 AM Marivel Wheatley RN Active * Do you have difficulty dressing or bathing? Answer Date of Assessment Author Status No 08/23/2022 10:33 AM Marivel Wheatley RN Active * Because of a physical, mental, or emotional condition, do you have difficulty doing errands alone such as visiting a doctor's office or shopping? Answer Date of Assessment Author Status No 08/23/2022 10:33 AM Marivel Wheatley RN Active documented as of this encounter Mental Status * Because of a physical, mental, or emotional condition, do you have serious difficulty concentrating, remembering, or making decisions? Answer Entry Date Author Status No 08/23/2022 10:33 AM Marivel Wheatley RN Active documented in this encounter Plan of Treatment Not on file documented as of this encounter Goals Goal Patient Goal Type Associated Problems Recent Progress Patient-Stated? Author Patient will return to prior living situation and remain independent in ADLs upon discharge from hospital General Yes Lizeth George RN Safety Patient/family will have appropriate support at home upon discharge General Yes Lizeth George RN documented as of this encounter Visit Diagnoses Not on filedocumented in this encounter Additional Health Concerns Infection Onset Date Last Indicated Resolved Time ESBL - Extended Spectrum Beta-lactamase 07/04/2023 1 09/04/2022 documented as of this encounter Care Teams Hydraulic Chair Assembler Relationship Specialty Start Date End Date Ema Hinkle MD [address] [place] [address] [place] [address] PCP - General FAMILY PRACTICE 07/24/18 Quincy Joy MD [address] [place] [address] RADIATION ONCOLOGY 07/24/18 Montserrat Ott MD [address] [place] [address] OTOLARYNGOLOGY 07/25/18 Marti Neely MD,PHD [address] [place] [address] Consulting Physician OTOLARYNGOLOGY 02/10/20 documented as of this encounter
--- OUTSIDE RECORDS SUMMARY | 2024-11-20 08:40 | XMS_ITS | Encounter Summary ---
Author Organization [facility] Address [facility] [place] [address] Care Team Providers Care Office Machine Installer Name Role Phone Ema Hinkle MD Primary Care Provider [phone] Quincy Joy MD Unavailable [phone] Montserrat Ott MD Unavailable Unavailable Marti Neely MD,PHD Unavailable + [phone] Encounter Details Date Type Department Care Team (Late st Contact Info) Description 05/06/2019 Community Orders [facility] EPICCARE LINK Magdi Melvin MD [address] [place], [place] [address] Social History Tobacco Use Types Packs/Day Years Used Date Smoking Tobacco: Former Cigarettes 1 30 Smokeless Tobacco: Former Chew Comments:quit 15 years ago ( 2019) Alcohol Use Standard Drinks/Week Comments Yes 0 (1 standard drink = 0.6 oz pur e alcohol) approx 4 within month AUDIT-C Answer Date Recorded Frequency of Alcohol Consumption Monthly or less 07/25/2018 Average Number of Drinks 1 or 2 019 Frequency of Binge Drinking Monthly 07/08 Comments Unknown Sex and Gender Information Value Date Recorded Sex Assigned at Not on file 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 Gender Identity Not on file Sexual Orientation Not on file documented as of this encounter Plan of Treatment Not on file documented as of this encounter Visit Diagnoses Not on filedocumented in this encounter Additional Health Concerns Infection Onset Date Last Indicated Resolved Time COVID-19 Rule Out 01/11/2020 01/11/2020 01/12/2020 6:49 PM CDT COVID-19 Confirmed Comment:Per documentation 08/09/2020 08/09/2020 09/03/2020 12: 34 AM CLEANING SPECIALIST COVID-19 Rule Out 05/30/2021 05/30/2021 05/30/2021 7:32 PM CLEANING SPECIALIST COVID-19 Rule Out 12/11/2021 12/11/2021 12/12/2021 7:07 PM CDT COVID-19 Rule Out 04/15/2023 04/15/2023 04/15/2023 9:53 AM CDT ESBL - Extended Spectrum Beta-lactamase 07/04/2023 07/04/2023 documented as of this encounter Care Teams Office Machine Installer Relationship Specialty Start Date End Date Ema Hinkle MD [address] [facility] [address] [place] [address] PCP - General FAMILY PRACTICE 07/24/18 Quincy Joy MD [address] [place] [address] RADIATION ONCOLOGY 07/24/18 Montserrat Ott MD [address] [facility] [place] [address] OTOLARYNGOLOGY 07/25/18 Marti Neely MD,PHD [address] [place] [address] Consulting Physician OTOLARYNGOLOGY 02/10/20 documented as of this encounter
--- OUTSIDE RECORDS SUMMARY | 2024-11-20 08:40 | XMS_ITS ---
Author Organization Unknown Address [address] [place] [phone] Phone Care Team Providers Care Clerk Typist Name Role Phone WATSONBRIAN LEOS Attending Unavailable LUIS ALBERTO CAVAZOS Primary Unavailable Immunization Immunization Date Status Additional Notes Code Code System pneumococcal polysaccharide PPV23 05/17/2017 Completed 33 CVX pneumococcal polysaccharide PPV23 05/08/2006 Completed 33 CVX Pneumococcal conjugate PCV 13 05/02/2018 Completed 133 CVX Pneumococcal conjugate PCV 13 2020 Completed 133 CVX Influenza, high-dose, trivalent, PF 05/02/2018 Completed 135 CVX Influenza, split virus, trivalent, preservative 04/07/2008 Completed 141 CVX Influenza, split virus, quadrivalent, PF 2020 Completed 150 CVX Influenza, split virus, quadrivalent, preservative 05/17/2017 Completed 158 C VX Influenza, split virus, quadrivalent, preservative 05/06/2019 Completed 158 C VX Influenza, high-dose, quadrivalent, PF 04/25/2022 Completed 197 CVX COVID-19, mRNA, LNP-S, PF, 3 0 mcg/0.3 mL dose 08/26/2020 Completed 208 CVX COVID-19, mRNA, LNP-S, PF, 3 0 mcg/0.3 mL dose 09/16/2020 Completed 208 CVX COVID-19, mRNA, LNP-S, PF, 3 0 mcg/0.3 mL dose 07/06/2021 Completed 208 CVX Pneumococcal conjugate PCV20 , polysaccharide [id number] conjugate, adjuvant, PF 11/16/2022 Completed 216 CVX Social History Type Status Start Date End Date Code Code Syst em Smoking History Never smoker (Never Smoked) [id number] SNOMED CT Sex Female Hospital Discharge Instructions Should you have any questions prior to discharge, please contact a member of your healthcare team. If you have left the hospital and have any questions, please contact your primary care physician. Reason For Referral No Data Found Plan of Treatment COVID-19 Drive Thru Screen 12/03/[address]-19 [address] Thru Screen 09/15/2020 COVID-19 [address] Thru Screen 11/03/2020 Pharynx Esophagus Cine 06/14/2022 Esophagus 06/12/2023 Personal Care Team Section Performer Name Performer Role Active Date Inactive Da Radha Hill PCP - Primary care physician Radha SAHU PCP - Primary care physician
--- OUTSIDE RECORDS SUMMARY | 2024-11-20 08:40 | XMS_ITS | Clinical Summary ---
Author Organization [facility] Address Counts include 234 beds at the [facility] [place] [address] Care Team Providers Care Director Global Strategic Publisher Sales Name Role Phone Ema Hinkle MD Primary Care Provider [phone] Quincy Joy MD Unavailable [phone] Montserrat Ott MD Unavailable Unavailable Marti Neely MD,PHD Unavailable [phone] Allergies Active Allergy Reactions Criticality Noted Date Comments Lisinopril Cough Medications montelukast 10 MG tabletIndicatio ns:Chronic Obstructive Pulmonary Disease Take 1 tablet (10 mg total) by mouth nightly at bedtime. Indications: Chronic Obstructive Lung Disease Active albuterol sulfate HFA 108 (90 Base) MCG/ACT inhaler Inhale 2 puffs into the lungs every 6 (six) hours as needed for Wheezing. Active trazodone 100 MG tabletIndicatio ns:Insomnia Take 1 tablet (100 mg total) by mouth nightly at bedtime. Indications: Trouble Sleeping Active cyclobenzaprine 10 MG tablet Take 1 tablet (10 mg total) by mouth 2 (two) times daily as needed for Muscle Spasms. 0 9 Active latanoprost 0.005 % ophthalmic solutionIndicat ions:Glaucoma Place 1 drop into both eyes nightly at bedtime. Indications: Glaucoma 3 9 Active lidocaine 5 % Place 1 patch onto the skin daily as needed (back pain). 2 9 Active famotidine 40 MG tabletIndicatio ns:Reflux Esophagitis Take 1 tablet (40 mg total) by mouth nightly at bedtime. Indications: Lower Esophagus Inflammation From Backflow of Stomach Acid 0 Active albuterol (2.5 MG/3ML) 0.083% nebulizer solution Take 3 mLs (2.5 mg total) by nebulization every 4 (four) hours as needed. 1 Active melatonin 5 MG tablet Take 2 tablets (10 mg total) by mouth nightly at bedtime. Active amLODIPine 5 MG tabletIndicatio ns:Hypertension Take 1 tablet (5 mg total) by mouth nightly. Indications: High Blood Pressure Disorder Active atorvastatin (LIPITOR) 40 MG tablet Take 1 tablet (40 mg total) by mouth nightly at bedtime. Active arformoterol (BROVANA) 15 MCG/2ML Nebu Soln Take 2 mLs (15 mcg total) by nebulization 2 (two) times a day. Active HYDROcodone-tyler taminophen (NORCO) 10-325 MG tablet Take 1 tablet by mouth every 6 (six) hours as needed. 2 Active metoprolol succinate ER (TOPROL-XL) 25 MG 24 hr tablet Take 1 tablet (25 mg total) by mouth daily. 2 Active ipratropium-alb uterol (DUONEB) 0.5-2.5 (3) MG/3ML Solution Take 3 mLs by nebulization 4 (four) times daily. 3 Active BD POSIFLUSH 0.9 % injection 2 (two) times a day. 3 Active levothyroxine (SYNTHROID) 50 MCG tablet Take 1 tablet (50 mcg total) by mouth daily. 3 Active ipratropium (ATROVENT) 0.03 % nasal spray 2 sprays by Nasal route 2 (two) times daily. 2 Active levocetirizine (XYZAL) 5 MG tablet Take 1 tablet (5 mg total) by mouth daily. 3 Active hydrOXYzine (ATARAX) 50 MG tablet Take 1 tablet (50 mg total) by mouth nightly as needed. 3 Active omeprazole (PRILOSEC) 20 MG capsule Take 1 capsule (20 mg total) by mouth daily. 3 Active nystatin-triamc inolone (MYCOLOG) ointment APPLY ONE APPLICATION TWO TIMES DAILY 3 Active Active Problems Problem Noted Date Diagnosed Date Respiratory failure ([facility]) 12/13/2021 Laryngeal stridor 12/12/2021 COPD exacerbation ([facility]) 11/17/2021 Weight loss 07/28/2018 Overview (07/28/2018): Significant weight loss noticed due to radiation therapy - Dr. 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 Elevated liver enzymes 05/08/2018 Hepatic steatosis 05/08/2018 Gout 05/08/2018 SOB (shortness of breath) Oropharyngeal dysphagia Abnormal positron emission tomography (PET) scan of head Overview (07/25/2018): moderately hypermetabolic supraglottic soft tissue fullness with extension towards the origin of esophagus as evidence of biopsy-proven malignancy Abnormal CT scan, neck Overview (07/25/2018): revealed a mass seen on the supraglottic area 1.9cm 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 Fatigue Asthma ([facility]) Essential hypertension Endometriosis Posterior glottic stenosis Overview (12/16/2021): pt states to use a 5 or 6 for ETT per ENT residents Resolved Problems Problem Noted Date Diagnosed Date Resolved Date Preoperative cardiovascular examination 02/11/2020 03/18/2020 Immunizations Immunization Administration Dates Next Due Fluzone High Dose - >Age 65 (Prefilled Syringe) 05/02/2018 Influenza (Generic) 04/07/2008 Influenza Adult (Generic) 2020,,05/02/2018,2016 PFIZER COVID-19 (ORIGINAL FORMULATION, PURPLE CAP) mRNA, LNP-S, PF, 30 MCG/0.3 ML DOSE 09/06/2021,06/11/2021,09/16/2020 Pneumococcal (Pneumovax 23) 05/17/2017, 6 Pneumococcal (Prevnar 13) 2020,05/02/2018 Family History Medical History Relation Comments Cancer Father lung Lung Cancer Father Stent Cardiac Father Lung Cancer Mother Stroke Mother Cancer Other of throat c x 6 years ago Breast Cancer Paternal Grandmother Heart Attack Sister 1 Stent Cardiac Sister 1 Heart Attack Sister 2 Open Heart Sister 2 Stent Cardiac Sister 2 None Son 1 Other Son 2 killed by drunk class b truck driver CHF Neg Hx Diabetes Neg Hx Emphysema Neg Hx Lupus Neg Hx Scleroderma Neg Hx Relation Status Comments Brother 1 Brother 2 Alive Father Mother Other Paternal Grandmother Sister 1 Alive Sister 2 Alive Son 1 Alive Son 2 Social History Tobacco Use Types Packs/Day Years Used Date Smoking Tobacco: Former Cigarettes 30 1 974 - 2004 Smokeless Tobacco: Former Chew Tobacco Cessation:Counseling Given: Not Answered Alcohol Use Standard Drinks/Week Comments Not Currently 0 (1 standard drink = 0.6 oz pur e alcohol) AUDIT-C Answer Date Recorded Frequency of Alcohol Consumption Monthly or less 07/25/2018 Average Number of Drinks 1 or 2 019 Frequency of Binge Drinking Monthly 07/08 Comments No Sex and Gender Information Value Date Recorded Sex Assigned at Not on file 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 Gender Identity Not on file Sexual Orientation Not on file Occupation Industry Job Start Date Job End Date Not on file Not on file Not on file Not on file Last Filed Vital Signs Vital Sign Reading Time Taken Comments Blood Pressure 103/63 04/15/2023 10:15 AM CDT Pulse 99 04/15/2023 10:15 AM CDT Temperature 36.3 C (97.3 F) 04/15/2023 8:39 AM CDT Respiratory Rate 20 04/15/2023 8:39 AM CDT Oxygen Saturation 95% 04/15/2023 10: 15 AM CDT Inhaled Oxygen Concentration - - Weight 73.8 kg (162 lb 12.8 oz) 04/15/2023 8:39 AM CDT Height 162.6 cm (5' 4 ) 04/15/2023 8:39 AM CDT Body Mass Index 27.94 04/15/2023 8:39 AM CDT Plan of Treatment Health Maintenance Due Date Last Done Comments Colorectal Cancer Screening Colonoscopy (10 Years) 1952 Hepatitis C 1970 DTaP, Tdap and Td Vaccines (1 - Tdap) 1971 Zoster Vaccines (1 of 2) 2002 RSV Immunization or 60+ Years (1 - Risk 60-74 years 1-dose series) 2012 Annual Medicare Wellness Visit 2017 Mammogram Screening 02/02/2024 02/01/2022, 10/31/2020, 06/10/2019 COVID-19 Vaccine ( season) 2024 09/06/2021, 07/06/2021, 06/11/2021, Additional history exists Dexa Scan (General) Completed 10/31/2020 Pneumococcal Vaccine: 50+ Years Completed 11/16/2022, 2020, 05/02/2018, Additional history exists Meningococcal B Vaccine Aged Out No l onger eligible based on patient's age to complete this topic Meningococcal Vaccine Aged Out No diane lalita eligible based on patient's age to complete this topic RSV Immunizations Under 20 Months Aged Out No longer eligible based on patient's age to complete this topic Goals Goal Patient Goal Type Associated Problems Recent Progress Patient-Stated? Author Patient will return to prior living situation and remain independent in ADLs upon discharge from hospital General Yes Lizeth George, RN Safety Patient/family will have appropriate support at home upon discharge General Yes Lizeth George RN Medical Devices Implanted Type Area Clinical Documentation Clerk Device Identifier Shelf Expiration Date Model / Serial / Lot Lens Lens Description:Bilateral eyes Pin Pin Description:Dental upper imp lants Graft Soft Tissue Amniofix Purion Amniotic Membrane Particulate Nonimmunogenic Injectable 40mg - [id number] Implanted:Qty: 1 on 06/02/2021 by Marti Neely MD,PHD at [facility] Tissue N/A: Throat MIMEDX 09/05/2025 [id number] / [id number] / Endovive Safety Peg Percutaneous Endoscopic Gastrostomy Kit Implanted:Qty: 1 on 12/21/2021 by Alyssia De Los Santos MD at [facility] Tube Implant Left: Abdomen Rowl [id number] 11/04/2022 [id number] / [id number] / [id number] Description:PEG Tube to abdo men LUQ Placental Tissue Membrane Implanted:Qty: 1 on 04/05/2022 by Marti Neely MD,PHD at [facility] N/A: Larynx New[employer]istics [id number] 06/16/2026 [id number] / / [id number] Shiley Adult Flexible Tracheostomy Tube Cuffless Implanted:Qty: 1 on 04/05/2022 by Marti Neely MD,PHD at [facility] N/A: Trachea COVIDIEN [id number] 03/02/2026 [id number] / / [id number] Fibrin Sealant (Human) Vistaseal Implanted:Qty: 1 on 08/23/2022 by Marti Neely MD,PHD at [facility] N/A: Throat [id number] 03/18/2024 [id number] / [id number] / [id number] Biodfence Placental Tissue Membrane Implanted:Qty: 1 on 08/23/2022 by Marti Neely MD,PHD at [facility] N/A: Throat na 04/10/2027 [id number] / / [id number] Explanted Type Area Clinical Documentation Clerk Device Identifier Shelf Expiration Date Model / Serial / Lot Brody Laryngeal Stent Medium Explanted:Qty: 1 on 01/31/2023 at [facility] N/A: Larynx [facility] N/A 11/09/2032 [id number] / / N/A Procedures Procedure Name Priority Date/Time Associated Diagnosis Comments MG SCREENING W STEPHEN YVETTE DIGI Routine 02/01/2022 10:48 AM CDT Visit for screening mammogram BONE DENSITY/DEXA Routine 10/31/2020 2:3 3 PM CDT Post-menopausal from Last 3 Months or Most Recently Relevant to Health Maintenance Results * MG SCREENING W STEPHEN YVETTE DIGI (02/01/2022 10:48 AM CDT) Anatomical Region Laterality Modality Breast Bilateral Mammography 02/01/2022 4:53 PM CDT Impressions 02/01/2022 4:54 PM CDT IMPRESSION: No suspicious change since the previous exams. Recommendation: 1: Routine Screening Bilateral in 1 Year Assessment: ACR BI-RADS 2 - BENIGN FINDING(S) Ordered By: NANI HILL Interpreted By: Isaac Webb MD, 02/01/2022 4:53 PM Narrative 02/01/2022 4:54 PM CDT Examination: Digital screening mammogram with CAD. Clinical history: Asymptomatic patient presents for routine screening. Comparison: 10/31/2020, 06/10/2019, 06/14/2016. Technique: Bilateral digital mammograms. The exam was interpreted with the use of a computer-aided detection (CAD) system. Additional 3-D tomosynthesis images were acquired. Tissue density: The breast tissue is heterogeneously dense. Findings: The breast tissue is heterogeneously dense. The dense tissue may obscure some lesions mammographically. Benign-appearing calcification noted. No suspicious mass, microcalcification or area of architectural distortion can be identified. From a mammographic standpoint, routine followup in one year would seem adequate. us Nani Hill PAYvonne MAMMO Final Resul t * BONE DENSITY/DEXA (10/31/2020 2:33 PM CDT) Anatomical Region Laterality Modality Bone Bone Density 10/31/2020 3:11 PM CDT Impressions 10/31/2020 3:12 PM CDT Impression: BMD measured at both total hips and both femoral necks at WHO category level of osteopenia. BMD measured at AP lumbar spine at level of normal. Referred By: EMA HINKLE Interpreted By: Christian Mckeon MD, 10/31/2020 3:11 PM Narrative 10/31/2020 3:12 PM CDT Examination: DEXA Bone densitometry EXAM DATE: 10/31/2020 2:33 PM Clinical history: Postmenopausal. Dairy product consumption. Weight-bearing exercise. Technique: DEXA bone minimal density evaluation was performed in the AP projection over the lumbar spine and over both hips in the AP projection utilizing standard imaging techniques. Assessment: The BMD measured at the AP spine L1-L4 is 0.954 g/cm? with a T-score of -0.8 and a Z-Score of 1.2. Bone density is up to 10% below young normal. This patient is considered normal according to the World Health Organization (WHO) criteria. Fracture risk is low. The BMD measured at the femur total left is 0.739 g/cm? with a T-score of -1.7 and a Z-Score of -0.2. The patient is considered osteopenic according to World Health Organization (WHO) criteria. Bone density is between 10 and 25% below young normal. Fracture risk is moderate. Treatment is advised. The BMD measured at the left femoral neck is 0.577 g/sq cm resulting in a T score of -2.4 and a Z score of -0.7, values at the WHO category level of osteopenia. The BMD measured at the femur total right is 0.796 g/cm? with a T-score of -1.2 and aZ-Score of 0.2. The patient is considered osteopenic according to World Health Organization (WHO) criteria. Bone density is between 10 and 25% below young normal. Fracture risk is moderate. Treatment is advised. The BMD measured at the right femoral neck is 0.658 g/sq cm resulting in a T score of -1.7 and a Z score 0.0, values at the WHO category level of osteopenia. FRAX results: 10 year probability of major osteoporotic fracture 13% and of hip fracture 2.9%. Recommendations: All patients should ensure an adequate intake of dietary calcium and vitamin D. The NOF recommend adults under the age of 50 need 1000 mg of calcium and 400-800 IU of vitamin D daily. Effective therapy for the prevention and treatment of osteoporosis include biphosphonates. Follow-up: People with diagnosed cases of osteoporosis or at high risk for fracture should have regular bone mineral density test. For patients eligible for Medicare, routine testing is allowed once every 2 years. Testing frequency can be increased to one year for patients who have rapidly progressing disease, those who are receiving or discontinuing medical therapy to restore bone mass, or have additional risk factors. Based on these results, a followup exam is recommended in no earlier than 2 years for routine follow-up. As early as 1 year to assess efficacy of new medication therapy for treatment of osteoporosis. Procedure Note Christian Mckeon MD - 10/31/2020 Examination: DEXA Bone densitometry EXAM DATE: 10/31/2020 2:33 PM Clinical history: Postmenopausal. Dairy product consumption.Weight-bearing exercise. Technique: DEXA bone minimal density evaluation was performed in the AP projection over the lumbar spine and over both hips in the AP projection utilizing standard imaging techniques. Assessment: The BMD measured at the AP spine L1-L4 is 0.954 g/cm? with a T-score of -0.8 and a Z-Score of 1.2. Bone density is up to 10% below youngnormal. This patient is considered normal according to the World Health Organization (WHO) criteria. Fracture risk is low. The BMD measured at the femur total left is 0.739 g/cm? with a T-scoreof -1.7 and a Z-Score of -0.2. The patient is considered osteopenic according to World Health Organization (WHO) criteria. Bone density is between 10 and 25% below young normal. Fracture risk is moderate.Treatment is advised. The BMD measured at the left femoral neck is 0.577 g/sq cm resulting in aT score of -2.4 and a Z score of -0.7, values at the WHO category level of osteopenia. The BMD measured at the femur total right is 0.796 g/cm? with a T-scoreof -1.2 and aZ-Score of 0.2. The patient is considered osteopenicaccording to World Health Organization (WHO) criteria. Bone density is between 10and 25% below young normal. Fracture risk is moderate. Treatment is advised. The BMD measured at the right femoral neck is 0.658 g/sq cm resulting herb T score of -1.7 and a Z score 0.0, values at the WHO category level of osteopenia. FRAX results: 10 year probability of major osteoporotic fracture 13% andof hip fracture 2.9%. Recommendations: All patients should ensure an adequate intake of dietary calcium and vitamin D. The NOF recommend adults under the age of 50 need 1000 mg of calcium and 400-800 IU of vitamin D daily. Effective therapy for the prevention and treatment of osteoporosis include biphosphonates. Follow-up: People with diagnosed cases of osteoporosis or at high risk for fracture should have regular bone mineral density test. For patients eligible for Medicare, routine testing is allowed once every 2 years. Testingfrequency can be increased to one year for patients who have rapidly progressing disease, those who are receiving or discontinuing medical therapy to restore bone mass, or have additional risk factors. Based on these results, a followup exam is recommended in no earlier than2 years for routine follow-up. As early as 1 year to assess efficacy ofnew medication therapy for treatment of osteoporosis. Impression: BMD measured at both total hips and both femoral necks at WHO category level of osteopenia. BMD measured at AP lumbar spine at level of normal. Referred By: EMA HINKLE Interpreted By: Christian Mckeon MD, 10/31/2020 3:11 PM us Ema Hinkle MD DEXA Final Result from Last 3 Months or Most Recently Relevant to Health Maintenance Additional Health Concerns Infection Onset Date Last Indicated ESBL - Extended Spectrum Beta-lactamase 07/04/20 23 07/04/2023 Insurance [facility] Advance Directives * Full Code (Latest Code Status on File) Date Activated Date Inactivated Comments 12/16/2021 2:47 PM 12/27/2021 3:39 PM * Full Code Date Activated Date Inactivated Comments 12/12/2021 7:47 PM 12/16/2021 2:47 PM * Full Code Date Activated Date Inactivated Comments 11/17/2021 3:16 PM 11/18/2021 2:14 PM Care Teams Director Global Strategic Publisher Sales Relationship Specialty Start Date End Date Ema Hinkle MD [address] [place] [address] PCP - General FAMILY PRACTICE 07/24/18 Quincy Joy MD [address] [place] [address] RADIATION ONCOLOGY 07/24/18 Montserrat Ott MD [address] [facility] [place] [address] OTOLARYNGOLOGY 07/25/18 Marti Neely MD,PHD [address] [place] [address] Consulting Physician OTOLARYNGOLOGY 02/10/20
--- OUTSIDE RECORDS SUMMARY | 2024-11-20 08:40 | XMS_ITS | Encounter Summary ---
Author Organization [facility] Address [facility] [place] [address] Care Team Providers Care Brick Veneer Maker Name Role Phone Ema Hinkle MD Primary Care Provider [phone] Quincy Joy MD Unavailable [phone] Montserrat Ott MD Unavailable Unavailable Marti Neely MD,PHD Unavailable + [phone] Encounter Details Date Type Department Care Team (Late st Contact Info) Description 02/10/2020 Abstract [facility] [address] [place] [address] Cm Bower MD Social History Tobacco Use Types Packs/Day Years Used Date Smoking Tobacco: Former Cigarettes 30 1 974 - 2004 Smokeless Tobacco: Former Chew Comments:quit 15 years ago ( 2018) Alcohol Use Standard Drinks/Week Comments Yes 0 (1 standard drink = 0.6 oz pur e alcohol) Approximately 4 per month AUDIT-C Answer Date Recorded Frequency of Alcohol Consumption Monthly or less 07/25/2018 Average Number of Drinks 1 or 2 019 Frequency of Binge Drinking Monthly 07/08 Comments No Sex and Gender Information Value Date Recorded Sex Assigned at Not on file 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 COVID-19 Rule Out 12/11/2021 12/11/2021 12/12/2021 7:07 PM CDT COVID-19 Rule Out 04/15/2023 04/15/2023 04/15/2023 9:53 AM CDT ESBL - Extended Spectrum Beta-lactamase 07/04/2023 07/04/2023 documented as of this encounter Care Teams Brick Veneer Maker Relationship Specialty Start Date End Date Ema Hinkle MD [address] [place] [address] PCP - General FAMILY PRACTICE 07/24/18 Quincy Joy MD [address] [facility] [place] [address] RADIATION ONCOLOGY 07/24/18 Montserrat Ott MD [address] [place] [address] OTOLARYNGOLOGY 07/25/18 Marti Neely MD,PHD [address] [place] [address] Consulting Physician OTOLARYNGOLOGY 02/10/20 documented as of this encounter
--- OUTSIDE RECORDS SUMMARY | 2024-11-20 08:40 | XMS_ITS | Encounter Summary ---
Author Organization 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 Gender Identity Not on file Sexual Orientation Not on file documented as of this encounter Plan of Treatment Not on file documented as of this encounter Visit Diagnoses Not on filedocumented in this encounter Additional Health Concerns Infection Onset Date Last Indicated Resolved Time COVID-19 Rule Out 01/11/2020 01/11/2020 01/12/2020 6:49 PM CDT COVID-19 Confirmed Comment:Per documentation 08/09/2020 08/09/2020 09/03/2020 12: 34 AM STEAM TABLE 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 COVID-19 Rule Out 05/30/2021 05/30/2021 05/30/2021 7:32 PM STEAM TABLE ATTENDANT COVID-19 Rule Out 12/11/2021 12/11/2021 12/12/2021 7:07 PM CDT COVID-19 Rule Out 04/15/2023 04/15/2023 04/15/2023 9:53 AM CDT ESBL - Extended Spectrum Beta-lactamase 07/04/2023 07/04/2023 documented as of this encounter Care Teams Model Technician Relationship Specialty Start Date End Date Ema Hinkle MD [address] [place] [address] PCP - General FAMILY PRACTICE 07/24/18 Quincy Joy MD [address] [place] [address] RADIATION ONCOLOGY 07/24/18 Montserrat Ott MD [address] [place] [address] OTOLARYNGOLOGY 07/25/18 Marti Neely MD,PHD [address] [place] [address] Consulting Physician OTOLARYNGOLOGY 02/10/20 documented as of this encounter
== END 2024-11-20 08:30 | disposition home or self-care (01) ==
LOC: CHSIMG 08:31
PROVIDERS: PCP Family Medicine; Visit Provider Nurse Practitioner Family
DX: M54.6 Pain in thoracic spine (principal)
CPT/HCPCS: 72072

== ENCOUNTER 2024-12-29 13:07 | Emergency (ER) | payer MEDICARE, OTHER, SELFPAY ==
--- NOTE | ~2024-12-29 | XR_ITS ---
EXAMINATION: XR abdomen gastric tube insert DATE: 12/29/2024 14:19 INDICATION: Percutaneous gastrostomy tube placement TECHNIQUE: A supine view of the abdomen and lower chest was obtained for evaluation of feeding tube placement. COMPARISON: None. FINDINGS: Percutaneous gastrostomy tube bulb outlined by injected contrast within the body the stomach. No evid ent extraluminal contrast extravasation. No dilated loops of gas-filled bowel to suggest obstruction. . Mild discoid atelectasis at the medial right lower lung zone. Remainder the lungs are clear. No pul monary edema, pleural effusion or pneumothorax. Several surgical clips around a tracheostomy tube at the thoracic inlet. Additional surgical clips project over the heart and inferior mediastinum. IMPRESSION: 1. Percutaneous gastrostomy tube and injected contrast in the body the stomach. Reviewed, dictated and finalized at location A.
[2024-12-29 13:16] VITALS: BP 133/71; PULSE 94; RESP 20; TEMP 37.3; O2SAT 98
[2024-12-29] MEDS: NEOMYCIN/POLYMYXIN/BACITRACIN OINTMENT PACKET 5 PACKET TOPICAL (14:16)
--- NOTE | 2024-12-29 14:26 | ED.GENADULT ---
HPI - General Adult General Chief complaint: Unspecified Stated complaint: NG tube came out Time Seen by Provider: 12/29/24 13:13 Source: patient Mode of arrival: ambulatory Limitations: no limitations History of Present Illness HPI narrative: This is a 74-year-old female, with history of esophageal cancer status post tracheostomy and PEG tube placement, who presents to the emergency department stating that her G-tube fell out. The patient states she has noticed some leakage around her G-tube route recently associated with burning and soreness. She denies fevers, chills, vomiting or diarrhea. She denies bleeding from any source. She has no other complaints at this time. Related Data Home Medications ?Medication ?Instructions ?Recorded ?Confirmed ?Last Taken ?Type albuterol sulfate 2.5 mg/3 mL 2.5 mg inhalation Q4-6H 04/15/22 03/09/24 Unknown History (0.083 %) solution for nebulization cetirizine 10 mg tablet 5 mg feeding tube DAILY 04/15/22 03/09/24 Unknown History famotidine 40 mg tablet 40 mg feeding tube DAILY 04/15/22 03/09/24 Unknown History lidocaine 5 % topical patch 1 patch transdermal Q12-24H 04/15/22 03/09/24 Unknown History metoprolol succinate 25 mg 25 mg PO DAILY 04/15/22 03/09/24 Unknown History tablet,extended release 24 hr omeprazole 40 mg capsule,delayed 40 mg feeding tube DAILY 04/15/22 03/09/24 Unknown History release trazodone 100 mg tablet 100 mg feeding tube HS 04/15/22 03/09/24 Unknown History amlodipine 5 mg tablet 2.5 mg feeding tube DAILY 03/09/24 03/09/24 Unknown History atorvastatin 40 mg tablet 40 mg PO DAILY 03/09/24 03/09/24 Unknown History montelukast 10 mg tablet 10 mg feeding tube DAILY 03/09/24 03/09/24 Unknown History Allergies Allergy/AdvReac Type Severity Reaction Status Date / Time No Known Allergies Allergy Verified 12/29/24 13:47 Review of Systems Review of Systems: All systems reviewed & are unremarkable except as noted in HPI and below PMFSH Past Medical History Medical History History of gastrostomy tube placement Chronic obstructive pulmonary disease with (acute) exacerbation Back pain Gastritis Chest pain of uncertain etiology Surgical History Surgical History History of tracheostomy Exam Narrative: GENERAL: Well-developed, well-nourished, and in no acute distress. HEAD: Normocephalic, atraumatic. EYES: PERRLA and EOMI. NECK: Supple. Tracheostomy in place CHEST: Clear to auscultation. No respiratory distress. No wheezes rales or rhonchi HEART: Regular rate and rhythm. No murmur heard. Normal peripheral pulses. ABDOMEN: The skin surrounding the G-tube insertion site is erythematous without induration. There is a small amount drainage noted at the G-tube site consistent with gastric fluids. Soft, mild tenderness to palpation around the G-tube insertion site without other focal tenderness, nondistended, normal active bowel sounds. EXTREMITIES: Normal range of motion. No edema. SKIN: Warm, dry, no rash. NEURO: Alert and oriented x3. No focal deficit. Moving all 4 limbs spontaneously PSYCH: Normal mood and affect. Course Course Emergency Course: 14:50 - The patient's G-tube was replaced with a Martinez catheter the same size. X-ray shows ET tube in the stomach with contrast emptying into the stomach with out changes concerning for obstruction or leakage. Will discharge with recommendation for primary care and surgery follow-up. I discussed the findings and recommendations with the patient. Discussed return and emergency precautions including signs/symptoms of bowel obstruction and acute abdomen. The patient voiced understanding and agreement with the plan. All questions answered to her satisfaction. Vital Signs Vital signs: Vital Signs Temperature 99.2 F 12/29/24 13:16 Pulse Rate 94 12/29/24 13:16 Respiratory Rate 20 12/29/24 13:16 Blood Pressure 133/71 12/29/24 13:16 Pulse Oximetry 98 12/29/24 13:16 Oxygen Delivery Room Air 12/29/24 13:16 Temperature 99.2 F 12/29/24 13:16 Pulse Rate 81 12/29/24 14:50 Respiratory Rate 18 12/29/24 14:50 Blood Pressure 121/64 12/29/24 14:50 Pulse Oximetry 95 12/29/24 14:50 Oxygen Delivery Room Air 12/29/24 14:50 Procedures Feeding Tube Replacement Feeding Tube #1: Feeding Tube Placement Date: 12/29/24 Feeding Tube Placement Time: 14:15 Type of Tube: gastrostomy Insertion Site Prior to Procedure: erythematous and tender Tube Used for Reinsertion: Martinez [place]ish Tube Size (F): 24 Balloon size (mL): 30 Verification of Placement: KUB and gastrografin injection Tube Secured by: tape/dressing Patient Tolerated Procedure: well Complications: other (None) Medical Decision Making MDM Narrative Medical decision making narrative: plan: G-tube replacement, imaging, reassess Differential Diagnosis Differential Diagnosis: G-tube displacement, G-tube malfunction, other Vital Signs Vital Signs: Vital Signs Temperature 99.2 F 12/29/24 13:16 Pulse Rate 94 12/29/24 13:16 Respiratory Rate 20 12/29/24 13:16 Blood Pressure 133/71 12/29/24 13:16 Pulse Oximetry 98 12/29/24 13:16 Oxygen Delivery Room Air 12/29/24 13:16 Temperature 99.2 F 12/29/24 13:16 Pulse Rate 81 12/29/24 14:50 Respiratory Rate 18 12/29/24 14:50 Blood Pressure 121/64 12/29/24 14:50 Pulse Oximetry 95 12/29/24 14:50 Oxygen Delivery Room Air 12/29/24 14:50 Discharge Plan Discharge Clinical Impression: Gastrostomy tube skin breakdown, Gastrostomy malfunction Patient Disposition: Home Condition: Stable Instructions: Antibiotic Form Additional Instructions: You were seen in the emergency department. Your gastrostomy tube was replaced with a Martinez catheter. I recommend following up with your primary care doctor and a general surgeon to replace that the temporary tube with a true gastrostomy tube. I recommend continued wound care for the skin surrounding the gastrostomy tube insertion site. If you develop severe abdominal pain, abdominal pain with fevers, persistent vomiting, bleeding, or if you have other emergent concerns for life, limb, or eyesight, return to the emergency department. Patient Language: Estonian Prescriptions: No Action albuterol sulfate 2.5 mg /3 mL (0.083 %) solution for nebulization 2.5 mg inhalation Q4-6H cetirizine 10 mg tablet 5 mg feeding tube DAILY famotidine 40 mg tablet 40 mg feeding tube DAILY omeprazole 40 mg capsule,delayed release(DR/EC) 40 mg feeding tube DAILY trazodone 100 mg tablet 100 mg feeding tube HS lidocaine 5 % adhesive patch,medicated 1 patch transdermal Q12-24H Rx Instructions: off at HS metoprolol succinate 25 mg tablet extended release 24 hr 25 mg PO DAILY acetaminophen [Tylenol] 325 mg capsule 650 mg PO Q8H PRN (Reason: pain) Qty: 20 0RF omeprazole magnesium [Prilosec OTC] 20 mg tablet,delayed release (DR/EC) 20 mg PO BID Qty: 20 0RF atorvastatin 40 mg tablet 40 mg PO DAILY amlodipine 5 mg tablet 2.5 mg feeding tube DAILY montelukast 10 mg tablet 10 mg feeding tube DAILY Follow-up/Referrals: Ema Hinkle MD [Primary Care Provider] - 1 Week Time of Disposition: 14:53
[2024-12-29 14:55] VITALS: BP 121/64; PULSE 81; RESP 18; O2SAT 95
== END 2024-12-29 14:55 | disposition home or self-care (01) ==
PROVIDERS: Emergency Provider Preventive Medicine Aerospace Medicine; PCP Family Medicine
DX: K94.23 Gastrostomy malfunction (principal); J44.9 Chronic obstructive pulmonary disease, unspecified; Z85.01 Personal history of malignant neoplasm of esophagus
CPT/HCPCS: 43762; 99283; A9270

== ENCOUNTER 2025-01-15 08:57 | Emergency (ER) | payer MEDICARE, OTHER, SELFPAY ==
--- NOTE | ~2025-01-15 | XR_ITS ---
EXAM/PROCEDURE: XR abdomen/kub 1V - 01/15/2025 9:21 CDT HISTORY: 74 years old Female with peg placement by patient herself COMPARISON: None available. TECHNIQUE: AP view(s) of the abdomen. FINDINGS: Diffuse dilatation of the bowel may represent ileus. There is a gastrostomy tube in place in the uppe r abdomen. No free intraperitoneal air is identified on this supine radiograph. The visualized soft tissue shadows are unremarkable. No gross bony abnormalities are seen. Visualized portions of lung bases are clear. IMPRESSION: Gastrostomy tube in place in upper abdomen. A G-tube evaluation study can be performed to confirm elizabeth ropriate positioning. Diffuse dilatation of the bowel may represent ileus. Reviewed, dictated and finalized at location A. IMPRESSION: Gastrostomy tube in place in upper abdomen. A G-tube evaluation study can be pe rformed to confirm appropriate positioning. Diffuse dilatation of the bowel may represent ileus.
--- NOTE | ~2025-01-15 | XR_ITS ---
Exam: Abdomen 1V HISTORY: peg tube came out, pt pushed it back in, check placement COMPARISON: 12/29/2024 TECHNIQUE: Supine images of the lower chest and upper abdomen FINDINGS: Contrast opacifies the stomach. IMPRESSION: Gastric tube in good position and ready for immediate use. Reviewed, dictated and finalized at location A.
[2025-01-15 08:57] VITALS: BP 108/61; PULSE 106; RESP 20; TEMP 36.3; O2SAT 96
--- OUTSIDE RECORDS SUMMARY | 2025-01-15 09:01 | XMS_ITS | Clinical Summary ---
Author Organization [facility] Address [address] [place] [address] Care Team Providers Care Senior Mechanical Designer Name Role Phone Ema Hinkle MD Primary Care Provider Source Comments [facility],non-[facility]red hospital Affiliates and Associated Physician Practices is amultiple site organization consisting of ambulatory clinics and hospital sitesin [place], [place], [place] and [place]. This disclosure is being madepursuant to the Care Everywhere program and may not contain all information available regarding this patient. Last updated 18.[facility] Allergies Active Allergy Reactions Criticality Noted Date Comments Brimonidine Swelling,Eye Redness Medium Lisinopril Other High Pt reports severe hypotension Medications * Be aware that medications may not be up to date on this document. Alwaysverify current medications with the patient. albuterol HFA (PROAIR HFA) 108 (90 BASE) MCG/ACT inhaler Inhale 2 (two) puffs by mouth every 6 hours as needed Active albuterol (5 MG/ML) 0.5% 2.5 mg, ipratropium 0.02 % 0.5 mg Active traZODone (DESYREL) 100 MG tablet Take 1 (one) tablet by mouth at bedtime Active amLODIPine (NORVASC) 10 MG tablet Take 1 (one) tablet by mouth once daily Active montelukast (SINGULAIR) 10 MG tablet Take 1 (one) tablet by mouth at bedtime Active LATANOPROST 0.005% PF EYE DROPS (COMPOUNDED) 1 (one) drop every evening Active cetirizine (ZYRTEC) 10 MG tablet Take 1 (one) tablet by mouth once daily Active atorvastatin (Lipitor) 40 MG tablet Take 1 (one) tablet by mouth once daily 5 Active famotidine (Pepcid) 40 MG tablet Take 1 (one) tablet by mouth 2 times daily 5 Active hydrOXYzine HCl (Atarax) 50 MG tablet TAKE 1 TABLET BY MOUTH AT BEDTIME FOR SLEEP/ANXIETY 5 Active omeprazole (PriLOSEC) 20 MG capsule Take 1 (one) capsule by mouth once daily 5 Active tiZANidine (Zanaflex) 2 MG tablet TAKE 1 TO 2 TABLETS BY MOUTH AT BEDTIME NEEDED FOR BACK PAIN 5 Active levothyroxine (Synthroid) 50 MCG tablet Take 1 (one) tablet by mouth daily before breakfast Active nystatin (Mycostatin) 414351 UNIT/GM ointment APPLY OINTMENT TOPICALLY TWO TIMES DAILY AND USE FOR 48 HOURS AFTER RASH IS GONE 5 Active HYDROcodone-tyler taminophen (Newell) 5-325 MG tablet TAKE 1 TO 2 TABLETS BY MOUTH EVERY 4 HOURS NEEDED 5 Active budesonide-form oterol (SYMBICORT) 160-4.5 MCG/ACT inhaler Inhale 2 puffs by mouth 2 times daily 12/29/19 25 Discontinu ed(List Clean-Up) allopurinol (ZYLOPRIM) 300 MG tablet Take 300 mg by mouth once daily 12/29/19 25 Discontinu ed(List Clean-Up) Calcium Carb-Cholecalci ferol (CALCIUM + D3) 600-200 MG-UNIT Take 1 tablet by mouth once daily 12/29/19 25 Discontinu ed(List Clean-Up) fluticasone propionate (FLONASE) 50 MCG/ACT nasal spray [place] 2 sprays into each nostril once daily 12/29/19 25 Discontinu ed(List Clean-Up) Turmeric 500 MG 12/29/19 25 Discontinu ed(List Clean-Up) Active Problems Problem Noted Date Diagnosed Date Essential hypertension 05/08/2018 Oropharyngeal dysphagia 05/08/2018 Asthma 05/08/2018 Elevated liver enzymes 05/08/2018 Gout 05/08/2018 Hepatic steatosis 05/08/2018 Bilateral retinal detachment 05/08/2018 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 Encounters Date Type Department Care Team Description 01/06/2025 9:29 AM CDT Anesthesia Event [facility] [address] [place] [address] Sam Alvarez, Enedelia Navarro, VALVER-CODE INSPECTOR 01/06/2025 8:45 AM CDT - 01/06/2025 1:35 PM CDT Surgery [facility] [address] [place] [address] Gerald Gupta MD DIRECT LARYNGOSCOPY 01/06/2025 6:28 AM CDT - 01/08/2025 10:11 AM CDT [facility] En[facility] [address] [place] [address] Gerald Gupta MD Veeramachaneni, Nirmal K, MD Surgery General Discharge Disposition: Home or Self Care 01/06/2025 Travel 12/28/2024 3:00 PM CDT Office Visit [facility] - Cardiothoracic Surgery [address] [facility] [place] [address] Shon Fraga MD Oropharyngeal dysphagia (Primary Dx) 12/28/2024 1:00 PM CDT - 12/28/2024 11:59 PM CDT [facility] [address] [place] [address] Gerald Gupta MD Discharge Disposition: Home or Self Care 12/28/2024 Travel 12/10/2024 9:34 AM CDT - 12/10/2024 11:59 PM CDT Hospital Encounter [facility] - Outside Imaging Discharge Disposition: Home or Self Care 12/02/2024 Travel 12/01/2024 Travel 11/27/2024 1:21 PM CDT - 11/27/2024 11:59 PM CDT Hospital Encounter [facility] - Outside Imaging Discharge Disposition: Home or Self Care 11/27/2024 1:21 PM CDT - 11/27/2024 11:59 PM CDT Hospital Encounter [facility] - Outside Imaging Discharge Disposition: Home or Self Care 11/27/2024 1:21 PM CDT - 11/27/2024 11:59 PM CDT Hospital Encounter [facility] - Outside Imaging Discharge Disposition: Home or Self Care 11/27/2024 1:17 PM CDT - 11/27/2024 1:20 PM CDT Hospital Encounter [facility] - Outside Imaging Discharge Disposition: Home or Self Care 11/25/2024 2:30 PM CDT Office Visit [facility] - Otolaryngology [address] [facility] [address] [place] [phone] Gerald Gupta MD Esophageal stenosis (Primary Dx); Pharyngeal dysphagia; Gastrostomy tube dependent (HCC); History of laryngectomy; History of head and neck radiation 11/25/2024 Travel 11/11/2024 Telephone [facility] - ENT [address], [facility] [address] [place] [address] Gerald Gupta MD Appointment 11/09/2024 Telephone [facility] - ENT [address], [facility] [address] [place] [address] Gerald Gupta MD Appointment 11/05/2024 Telephone [facility] - ENT [address], [facility] [address] [place] [address] Gerald Gupta MD Appointment from Last 3 Months Social History Tobacco Use Types Packs/Day Years Used Date Smoking Tobacco: Former Smokeless Tobacco: Never Tobacco Cessation:Counseling Given: No Alcohol Use Standard Drinks/Week Comments Not Currently 0 (1 standard drink = 0.6 oz pur e alcohol) Occasional AUDIT-C Answer Date Recorded Q1: How often do you have a drink containing alcohol? Never 01/07/2025 Q2: How many drinks containi ng alcohol do you have on a typical day when you are drinking? Patient does not drink Q3: How often do you have si x or more drinks on one occasion? Never 01/07/2025 Overall Financial Resource Strain (CARDIA) Answe r Date Recorded How hard is it for you to pa y for the very basics like food, housing, medical care, and heating? Not hard at all 01/07/2025 PHQ-2 Answer Date Recorded Patient Health Questionnaire-2 Score 0 12/28/2024 [facility] [place] [facility] - Occupational Stress Questionnaire Answer Date Recorded Do you feel stress - tense, restless, nervous, or anxious, or unable to sleep at night because your mind is troubled all the time - these days? Not at all 01/07/2025 Hunger Vital Sign Answer Date Recorded Within the past 12 months, y ou worried that your food would run out before you got the money to buy more. Never true 01/08/20 25 Within the past 12 months, t he food you bought just didn't last and you didn't have money to get more. Never true 01/07/2025 PRAPARE - Transportation Answer Date Re corded In the past 12 months, has l ack of transportation kept you from medical appointments or from getting medications? No 09/2024 In the past 12 months, has l ack of transportation kept you from meetings, work, or from getting things needed for daily living? No 01/07/2025 Housing Stability Vital Sign Answer Javier e Recorded In the last 12 months, was t here a time when you were not able to pay the mortgage or rent on time? No 01/07/2025 In the past 12 months, how m any times have you moved where you were living? 1 01/07/2025 At any time in the past 12 m [facility], were you homeless or living in a long term (including now)? No 01/07/2025 Comments No Sex and Gender Information Value Date Recorded Sex Assigned at Not on file Legal Sex Female 1:59 PM CDT Gender Identity Not on file Sexual Orientation Not on file Last Filed Vital Signs Vital Sign Reading Time Taken Comments Blood Pressure 152/73 01/08/2025 8:21 AM CDT Pulse 99 01/08/2025 8:21 AM CDT Temperature 36.9 C (98.4 F) 01/08/2025 8:21 AM CDT Respiratory Rate 20 01/08/2025 7:58 AM CDT Oxygen Saturation 94% 01/08/2025 7:58 AM CDT Inhaled Oxygen Concentration 21% 01/08/2025 8 :00 AM CDT Weight 55.3 kg (122 lb) 01/06/2025 7:20 AM CDT Height 160 cm (5' 3) 01/06/2025 7:20 AM CDT Body Mass Index 21.61 01/06/2025 7:20 AM CDT Plan of Treatment Upcoming Encounters Date Type Department Care Team (Late st Contact Info) Description 02/01/2025 3:15 PM CDT Office Visit [facility] - Otolaryngology [address] [place] [address] [place] [address] [place] [address] Health Maintenance Due Date Last Done Comments COLOGUARD (AGES 45-75) - COLON CA SCREENING 1952 COLON MONITORING 1952 COLONOSCOPY - COLON CA SCREENING 1952 CT COLONOGRAPHY - COLON CA SCREENING 1952 Colorectal Cancer Screening 1952 FIT - COLON CA SCREENING 1952 FLEX SIG - COLON CA SCREENING 1952 HEPATITIS C SCREENING 04/24/1970 DTAP/TDAP/TD VACCINES (1 - Tdap) 1971 PNEUMOCOCCAL VACCINE 50+ (1 of 2 - PCV) 1971 ZOSTER VACCINE (1 of 2) 2002 Respiratory Syncytial Virus (RSV) Vaccine Pt: or over 60 yrs (1 - Risk 60-74 years 1-dose series) 2012 MAMMOGRAM 02/02/2024 02/01/2022, 07/02/2022, 10/31/2020, Additional history exists COVID-19 VACCINE ( season) 2024 07/06/2021, 09/16/2020, 08/26/2020 MEDICARE AWV CALENDAR YEAR 2024 INFLUENZA VACCINE (#1) 2025 BONE DENSITY TESTING Completed 10/31/2020 DEPRESSION SCREENING Completed 12/28/2024 HEPATITIS B VACCINE Aged Out No longe [...] A/C/Y/W VACCINE Aged Out No longer eligible based on patient's age to complete this topic Procedures Procedure Name Priority Date/Time Associated Diagnosis Comments ENDOTRACHEAL TUBE NOTE Routine 01/06/2025 10:09 AM CDT [facility] ED EGD FLEX TRANSORAL DX 01/06/2025 8:59 AM CDT Esophageal stenosis Pharyngeal dysphagia Status post gastrostomy tube placement, follow-up exam History of laryngectomy History of head and neck radiation Case Notes Joint case with Dr. Fraga Special Needs GI endo tower, [id number] (Ultraslim) flexible gastroscope from endoscopy, CRE balloons 12/31 SUPINE C-ARM ENDOSCOPIC VIDEO CART, GASTROSCOPE, PEDIATRIC GASTROSOCPE, FLUOROSCOPY Farrell Bag EGD, STUFF FOR SCOPY Hegar Dilators / CRE Balloons GA ESOPHAGOSCOPY FLEX TRANSORAL W BX 01/06/2025 8:59 AM CDT Esophageal stenosis Pharyngeal dysphagia Status post gastrostomy tube placement, follow-up exam History of laryngectomy History of head and neck radiation Case Notes Joint case with Dr. Fraga Special Needs GI endo tower, [id number] (Ultraslim) flexible gastroscope from endoscopy, CRE balloons 12/31 SUPINE C-ARM ENDOSCOPIC VIDEO CART, GASTROSCOPE, PEDIATRIC GASTROSOCPE, FLUOROSCOPY Farrell Bag EGD, STUFF FOR SCOPY Hegar Dilators / CRE Balloons GA LARYNGOSCOPY,DIRECT ,DIAGNOSTIC 01/06/2025 8:59 AM CDT Esophageal stenosis Pharyngeal dysphagia Status post gastrostomy tube placement, follow-up exam History of laryngectomy History of head and neck radiation Case Notes Joint case with Dr. Fraga Special Needs GI endo tower, [id number] (Ultraslim) flexible gastroscope from endoscopy, CRE balloons 12/31 BC SUPINE C-ARM ENDOSCOPIC VIDEO CART, GASTROSCOPE, PEDIATRIC GASTROSOCPE, FLUOROSCOPY Farrell Bag EGD, STUFF FOR SCOPY Hegar Dilators / CRE Balloons BLOOD TYPE VERIFICATION Routine 01/06/2025 8:51 AM CDT TYPE + SCREEN PANEL STAT 01/06/2025 8:40 AM CDT Essential hypertension BASIC METABOLIC PANEL (CALCIUM TOTAL) STAT 01/06/2025 8:40 AM CDT Essential hypertension CBC W/O DIFFERENTIAL STAT 01/06/2025 8:40 AM CDT Essential hypertension from Last 3 Months Results * ETT LINE PERFORMABLE (01/06/2025 10:09 AM CDT) Narrative Tenzin Veliz CAA - 01/06/2025 10:09 AM CDT Tenzin Veliz CAA 01/06/2025 10:10 AM Endotracheal Tube Placement: Patient Location: OR. Intubation Event Date/Time: 01/06/2025 9:40 AM Procedure: intubation (81719) Procedure Section: Sedation: under general anesthesia. Indications for Airway Management: anesthesia Procedure pretreatments used? No Induction: standard IV Patient Position: sniffing Mask Ventilation: not attempted. Tube: reinforced Placement: via stoma Tube type: cuff - inflated Measured From: lips Cuff Inflated With: air Number of Attempts: 1. Placement Verified By: direct visualization, bilateral breath sounds, chest auscultation and CO2 monitor Tube secured with: other-please comment (suture). Dentition unchanged? Yes Difficult Airway? No. Procedure Start Time: 01/06/2025 9:40 AM. Staff Section Anesthesia Provider: Lexx Roman DO, Performed the procedure Provider #1: Sam Alvarez DO. Sam Alvarez DO GENERAL ANESTHESIA ORDERAB LES Final Result * BLOOD TYPE VERIFICATION (01/06/2025 8:51 AM CDT) ABO Rh O POS 01/06/2025 9:4 6 AM CDT [facility] Blood Bank BLOOD SPECIMEN / Unknown Line Draw / Unknown 01/06/2025 8:51 AM CDT 01/06/2025 8:53 AM CDT Sam Alvarez DO LAB - BLOOD BANK ORDERABLE S Final Result [facility] [address] [place] [address], [facility] [phone] * TYPE + SCREEN PANEL (01/06/2025 8:40 AM CDT) Antibody Screen NEG 9:42 AM CDT [facility] ABO Rh O POS 01/06/2025 9:42 AM CDT [facility] Blood Bank BLOOD SPECIMEN / Unknown Venipuncture / Unknown 01/06/2025 8:40 AM CDT 01/06/2025 8:48 AM CDT Sam Alvarez DO LAB - BLOOD BANK ORDERABLE S Final Result Performing Organization Address City/[facility]/ZIP Co de Phone Number [facility] [address] [place] [address], [facility] [phone] * (ABNORMAL) CBC W/O DIFFERENTIAL (01/06/2025 8:40 AM CDT) WBC 5.6 4.0 - 10.7 x10E9/L 01/06/2025 8:59 AM [facility] RBC Count 4.03 3.90 - 5.20 x10E12/L 01/06/2025 8:59 AM [facility] Hemoglobin 11.1(L) 11.9 - 15.8 g/dL 01/06/2025 8:59 AM [facility] Hematocrit 33.9(L) 34.8 - 46.1 % 01/06/2025 8:59 AM [facility] MCV 84.1 80.0 - 98.0 fL 01/06/2025 8:59 AM [facility] MCH 27.5 26.7 - 33.6 pg 01/06/2025 8:59 AM [facility] MCHC 32.7 31.7 - 36.3 g/dL 01/06/2025 8:59 AM [facility] RDW-CV 14.0 11.3 - 14.8 % 01/06/2025 8:59 AM [facility] Platelet Count 152 150 - 420 x10E9/L 01/06/2025 8:59 AM [facility] MPV 10.5 7.8 - 11.4 fL 01/06/2025 8:59 AM [facility] Blood BLOOD SPECIMEN / Unknown Venipuncture / Unknown 01/06/2025 8:40 AM CDT 01/06/2025 8:51 AM CDT us Sam Alvarez DO LAB - HEMATOLOGY ORDERABLE S Final Result [facility] [address] [place] [address], [facility] [phone] * (ABNORMAL) BASIC METABOLIC PANEL (CALCIUM TOTAL) (01/06/2025 8:40 AM CDT) BUN 25 7 - 26 mg/dL 01/06/2025 9:16 AM [facility] Creatinine 0.91 0.56 - 0.96 mg/dL 01/06/2025 9:16 AM [facility] Sodium 136 136 - 145 mmol/L 01/06/2025 9:16 AM [facility] Potassium 4.1 3.5 - 4.5 mmol/L 01/06/2025 9:16 AM [facility] Chloride 103 98 - 107 mmol/L 01/06/2025 9:16 AM [facility] CO2 28 22 - 29 mmol/L 01/06/2025 9:16 AM [facility] Glucose 97 70 - 99 mg/dL 01/06/2025 9:16 AM [facility] Calcium 9.0 8.4 - 10.2 mg/dL 01/06/2025 9:16 AM [facility] Anion Gap 5(L) 6 - 16 01/06/2025 9:16 AM [facility] BUN/Creatinine Ratio 27(H) 7 - 23 01/06/2025 9:16 AM [facility] Osmolality Calculated 286 275 - 295 mOsm/kg 01/06/2025 9:16 AM T [facility] eGFR by CKD-EPI 67(L) >=90 mL/min/1.7 3 m2 01/06/2025 9:16 AM T [facility] Comment:Estimated Glomerular Filtration Rate (eGFR) calculated using the CKD-EPI Creatinine Equation (2020), per the National Kidney Foundation and [place] [employer] recommendations. Blood BLOOD SPECIMEN / Unknown Venipuncture / Unknown 01/06/2025 8:40 AM CDT 01/06/2025 8:51 AM CDT us Sam Alvarez DO LAB - CHEMISTRY ORDERABLES Final Result [facility] [address] [place] [address], [facility] [phone] from Last 3 Months Additional Health Concerns Infection Onset Date Last Indicated ESBL Hx Comment:Added from external infection. Source: [facility]. 07/04/[address] [facility] Advance Directives * Full Code (Latest Code Status on File) Date Activated Date Inactivated Comments 01/06/2025 11:03 AM 01/08/2025 11:18 AM Care Teams Senior Mechanical Designer Relationship Specialty Start Date End Date Ema Hinkle MD PCP - General Family Medicine 04/15/18
--- OUTSIDE RECORDS SUMMARY | 2025-01-15 09:01 | XMS_ITS | Data Portability ---
Author Organization [facility], [address] [place] ([place]) Address [address] [address] Care Team Providers Care Radiation Oncology Nurse Name Role Phone SAHUNEEL Primary Care Provider CANDELARIO DOW Referring Provider Assessment No assessment [...] chest , w/o contr ast 2024 025 [facility] Only - [place] [facility], [address] [place], [address], 11/03/2024 13:44:17 Medication Orders Augme ntin ES-60 0 600 mg-42 .9 mg/5 mL oral suspe nsion [address] [facility] 213, [address] [place], [address], 06/24/2024 10:50:49 Patient TargetsNo targets recorded. Patient InstructionsNo instructions recorded. Reason for Referral None Reported. Results Created Date Observation Date Name Description Value Unit Range Abnormal Flag Note LastModifiedBy Organization Detail LastModifiedTime 06/24/20 24 06/24/2024 CT, chest , w/o contr ast [facility] [address] [place] [address] Teleph one [phone] Name: Marcelina Simeon [id number] Exam Date: 2023 Age: 74 Physic preston: [...] 9:13 AM cc: Page PAGE 1 of [facility] ES 1 [email or web address] [place] Only - [place] Radiology [address] [place] [address], [id number], 06/24/2024 10:30:32 06/25/20 24 06/24/2024 6 minut e walk test* No observ ation record ed. BARCODE Andrea Tolliver MD [address] [place] [address], [id number], 06/25/2024 14:26:45 08/06/19 25 08/06/2024 XR, chest , 2 view [facility] [address] [facility] [place] [address] Teleph one [phone] Name: Marcelina Simeon [id number] Exam Date: 2024 Age: 74 Physic preston: Justine freeman MD, Andrea : 1949 Examin ation: XR CHEST 2 VIEWS Exam: XR CHEST 2 VIEWS HISTOR Y: 1 month follow up pneumo mariaa. COMPAR SHERRI: 24 FINDIN GS: There is some opacit y in the right lower lobe in the lung base specialty sales consultant iorly which maybe relate d to pneumo [...] 12:12 PM cc: Page PAGE 1 of [facility] ES 1 [email or web address] [place] Only - [facility] Radiology [address] [place] [address], [address], 08/06/2024 13:19:04 11/04/19 25 11/03/2024 CT, chest , w/o contr ast [facility] [address] [place] [address] Teleph one Name: Marcelina Simeon [id number] Exam Date: 2024 Age: 74 Physic preston: [...] 12:41 PM cc: Page PAGE 1 of [facility] 1 [email or web address] [place] Only - [place] [facility] [address], [place], [address], 11/03/2024 13:54:28 01/09/20 25 04/16/2018 imagi ng/di agnos tic resul t No observ ation record ed. [email or web address] Not Available 0 01/08/2025 02:26:18 01/09/20 25 05/09/2018 imagi ng/di agnos tic resul t No observ ation record ed. [email or web address] Not Available 0 01/08/2025 02:26:24 01/09/20 25 05/10/2020 imagi ng/di agnos tic resul t No observ ation record ed. [email or web address] Not Available 0 01/08/2025 02:26:26 Result Notes Documentation Provider Name and Address Organization Details Recorded Time Ct, Chest, W/o Contrast : [facility] 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 Pulmonary nodularity. Follow-up. TECHNIQUE: CT of the chest was performed without IV contrast administration. Automated exposure control was used as a dose optimization technique for the examination. COMPARISON: PET scan from 12/24/2023. CT chest from 11/29/2023 FINDINGS: New consolidative opacity is noted in the left lung base on series 302 image 170 measuring approximately 3 cm x 4 cm. There has been interval progression of the peribronchial nodularity in the lower lobes. Oval nodule in the left base on series 302 image 130 measures 1.8 cm x 1 cm. There are mild emphysematous changes. There is a tracheostomy tube in place. Mild diffuse bronchial thickening is reidentified. There is mild mucous debris in the left mainstem bronchus. Lower lobe bronchiectatic changes are seen in the right base. Groundglass opacity in the left upper lobe on image 118 is noted. A few additional scattered upper lobe pulmonary nodules are seen. These are unchanged. There is no pleural or pericardial effusion. Heart size is upper limits of normal. The thoracic aorta is normal caliber with mild atherosclerosis. No thoracic lymphadenopathy seen. Possible pulmonary parenchymal herniation the right apex is stable. Images through the upper abdomen show no obvious new liver lesion or adrenal pathology. The left kidney is absent. 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 No fracture or aggressive bony process.. IMPRESSION: 1. There is a new consolidative opacity in the left base which is rather nonspecific and may be infectious or inflammatory in etiology rather than neoplastic. Additional nodularity seen in the left base. Lower lobe peribronchial nodularity has increased since prior exam. Close interval follow-up CT of the chest recommended in 3 months. 2. Additional scattered pulmonary micronodules are stable. Electronically signed in PowerScribe by: MARSHALL GUERRA MD on:06/24/2024 9:13 AM cc: Page PAGE 1 of [facility] 1 Andrea Tolliver MD [facility] [place] [address], [phone], [facility] 06/24/2024 10:30:32 Xr, Chest, 2 View : [facility] [address] [place] [address] Name: Marcelina Carroll Exam Date: 08/06/2024 Age: 74 Physician: MD Tolliver Philip : 1950 Examination: XR CHEST 2 VIEWS Exam: XR CHEST 2 VIEWS HISTORY: 1 month follow up pneumonia. COMPARISON:09/20/2023 FINDINGS: There is some opacity in the right lower lobe in the lung base posteriorly which maybe related to pneumonia or scarring. Mild patchy opacities in the left lower lung suggesting pneumonia. Cardiac size and pulmonary vascularity are within normal limits. Surgical clips are projected over the upper chest and lower neck. A gastrostomy tube is seen in the upper abdomen to the left of midline IMPRESSION: Right lower lobe lung base pneumonia or scarring. Mild patchy pneumonia in the left lower lung Electronically signed in PowerScribe by: HILARIA EDEN MD on:08/06/2024 12:12 PM cc: Page PAGE 1 of [facility] 1 Andrea Tolliver MD [address] [place] [address], [phone], [facility] 08/06/2024 13:19:04 Ct, Chest, W/o Contrast : [facility] [address] [place] [address] Name: Marcelina Carroll Exam Date: 11/03/2024 Age: 74 Physician: MD Tolliver Philip : 1950 Examination: CT CHEST WO EXAM: Computed Tomography (CT) of the Chest HISTORY: Follow-up lung nodule. 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 Right total laryngectomy. Former smoker.. COMPARISON: 06/24/2024 TECHNIQUE: CT of the chest was performed without IV contrast according to standard protocol. Automated exposure control was used as a dose optimization technique for this exam. FINDINGS: Heart/Pericardium: The tracheostomy tube has its tip below the level of the clavicular head. The heart is enlarged. No pericardial effusion. Mediastinum/Paulina: The trachea is patent and midline. Scattered subcentimeter mediastinal lymph nodes are present. Lungs/Pleura: Emphysematous changes are seen. Minimal bronchiectasis is noted. Consolidative changes in the left lower lobe have decreased. Mild tree-in-bud nodularity seen in the left upper lower lobes. There is a wedge-shaped area of consolidation in the periphery of the right lower lobe (302/113). A 9 mm nodule is again seen in the left lower lobe (302/175). A 3 mm nodule is again seen in the left lower lobe (302/137).. No pneumothorax or pleural effusion is present. Chest Wall/Breasts: The chest wall is unremarkable. There is no significant supraclavicular or axillary lymphadenopathy. The visualized abdominal structures are normal. Postsurgical changes are seen in the neck. Splenules are noted. The gastrostomy tube can be followed to the stomach. VASCULAR: There is atherosclerotic disease of the aorta and aortic branches. MUSCULOSKELETAL: The osseous thorax is intact. Mild degenerative changes are seen in the thoracic spine. IMPRESSION: 1. Wedge-shaped consolidative region in the right lower lobe. End considerations would include pulmonary infarct or an infectious/inflammatory process. 2. Decreased consolidative changes in the left lower lobe. New tree-in-bud nodularity in the left upper and lower lobes are felt to be infectious or inflammatory. 3. Unchanged remaining left lower lobe pulmonary nodules 4. Mild emphysematous changes Electronically signed in PowerScribe by: COSTA LYNCH MD on:11/03/2024 12:41 PM cc: Page PAGE 1 of [employer] 1 Andrea Tolliver MD [address] [place] [address], [phone], [facility] 11/03/2024 13:54:29 Problems Name Problem SNOMED Code Status Onset Date Resolution Date Notes Provider Name and Address Organization Details Recorded Time Ulcer of lower extremity 47208355 Active 2023 Siddharth rPice MD [facility] [place] [address], [phone], [facility] 4 12:26:19 Organism isolated in wound swab by culture 278109290 Active 2023 Siddharth Price MD [facility] [place] [address], [phone], [facility] 4 12:26:34 Edema of foot 310568378 Active 2023 Siddharth Price MD [facility] [place] [address], [phone], [facility] 4 12:26:41 Stasis dermatitis 19168753 Active 2023 Siddharth Price MD [address] [place] [address], [phone], 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 4 10:12:59 Narrow angle 358890110 Active 2023 Manuelcodi [facility], 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 4 10:12:59 Pneumonia 655813909 Active 2023 Andrea Tolliver MD [address] [place] [address], [place], [phone], [facility] 4 10:44:22 Abnormal sputum 432321290 Active 2024 Kyung Brewer null, [facility] 5 11:27:05 Pulmonary aspiration 44860769 Active 2024 Andrea Tolliver MD [address] [place] [address], [place], [address], [facility] 5 14:23:25 Nodule of lung 816961245 Active 2023 Kyung Brewer null, [facility] 4 09:33:54 Aphonia 284736926 Active 2023 Natalia Wong, ANJEL [address] [facility], [facility] [place], [address], [facility] 4 12:23:52 Chronic obstructive pulmonary disease 28435661 Active 2023 Andrea Tolliver MD [address] [place] [address], [phone], [facility] 4 17:55:56 Malignant tumor of larynx 627281997 Active 2023 Andrea oTlliver MD [address] [place] [address], [phone], [facility] 4 17:56:12 Problem Notes None recorded. Procedures Surgical History Date Name Laterality Status Provider Name and Address Organization Details Recorded Time 12/14/19 Date of Last Mammogram completed Not Available Health Note 12/22/2023 15:20:09 Total hysterectomy completed Not Available Health Note 12/22/2023 10:53:39 delivery completed Not Available Health Note 12/22/2023 15:20:07 Colonoscopy with biopsy completed Not Available Health Note 02/25/2024 09:10:12 Imaging Results None recorded. Procedure Notes None recorded. Medical Equipment None [...] MOUTH EVERY 4 TO 6 HOURS NEEDED 2024 active Not Available Not Available Not Avai lable cefdinir 300 mg capsule TAKE 1 CAPSULE [...] in Arterial blood by Pulse oximetry Systolic And Diastolic Provider Name and Address Organization Details Last Updated DateTime 5 162.56 cm 21.5 kg/m2 84971.0 5 g 109 /min 92 % 92 % 130/60 mm[Hg] [facility] 5 14:02:58 Date Recorded Body height Body mass index (BMI) Body weight Heart rate Oxygen saturation Oxygen saturation in Arterial blood by Pulse oximetry Systolic And Diastolic Provider Name and Address Organization Details Last Updated DateTime 5 162.56 cm 20.9 kg/m2 84543.8 3 g 91 /min 94 % 94 % 120/62 mm[Hg] [facility] 5 14:00:30 Date Recorded Oxygen saturation Oxygen saturation in Arterial blood by Pulse oximetry Provider Name and Address Organization Details Last Updated DateTime 06/24/2024 92 % 92 % Andrea Tolliver MD [address] [place] [address], [id number] 06/24/2024 10:43:35 Date Recorded Body height Body mass index (BMI) Body weight Heart rate Systolic And Diastolic Provider Name and Address Organization Details Last Updated DateTime 06/24/2024 162.56 cm 23 kg/m2 83812.38 g 107 /min 140/50 mm[Hg] [facility] 4 10:12:30 Social History Question Answer Notes LastModified by Organizat ion Details LastModified Time Tobacco Smoking Status Former Smoker [facility] 06/24/2024 10:15:36 Do You Have An Advance Directive? No [email or web address] Information not available 01/12/2024 What Is Your Level Of Caffeine Consumption? None [email or web address] Information not available 01/12/2024 How Many Times Per Week Do You Exercise? 3-4 Times Per Week [email or web address] Information not available 01/12/2024 When Did You Quit Smoking? 2004 [email or web address] Information not available 01/12/2024 Do You Have A Medical Power Of Marble Ceiling Installer? 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 [email or web address] Information not available 01/12/2024 What is [...] history of malignant neoplasm [email or web address] Not available 06/16/ 2024 10:53:38 Father Chronic obstructive pulmonary disease [email or web address] Not available 2023 10:53:38 Maternal Grandfather Family history of malignant neoplasm [email or web address] Not available 2023 10:53:38 Paternal Grandfather Family history of malignant neoplasm [email or web address] Not available 2023 10:53:38 Medical History Condition Response Attention-deficit Hyperactivity Disorder N High Blood Pressure Y Thyroid Problems N COPD Y Depression N Anemia N Diabetes N Anxiety Disorder N Bleeding Disorder N Arthritis N Hyperlipidemia N Cancer Y Stroke N Asthma Y Seizures N Heart Disease N Fibromyalgia N Osteoporosis N Kidney Disease N Gynecological History Statement/Question Response Age at Menarche 17 Date of Last Mammogram 12/14/2023 Obstetrics History GPAL:G 0 P 0 0 0 0 Immunizations Vaccine Type Date Status Note Provider Nam e and Address Organization Details Recorded Time pneumococcal polysaccharide PPV23 5 completed [facility] 11/03/2024 14:00:47 zoster live 3 completed [facility] 11/03/2024 14:00:47 Influenza, split virus, quadrivalent, preservative 9 completed [facility] 12/24/2023 17:29:41 Influenza, split virus, quadrivalent, preservative 7 completed [facility] 12/24/2023 17:29:41 Influenza, high-dose, quadrivalent, PF 2 completed [facility] 12/24/2023 17:29:41 COVID-19, mRNA, LNP-S, PF, 30 mcg/0.3 mL dose 1 completed [facility] 12/24/2023 17:29:41 COVID-19, mRNA, LNP-S, PF, 30 mcg/0.3 mL dose 1 completed [facility] 12/24/2023 17:29:41 COVID-19, mRNA, LNP-S, PF, 30 mcg/0.3 mL dose 1 completed [facility] 12/24/2023 17:29:41 Pneumococcal conjugate PCV20, polysaccharide [id number] conjugate, adjuvant, PF 3 completed [facility] 12/24/2023 17:29:41 pneumococcal polysaccharide PPV23 6 completed [facility] 12/24/2023 17:29:41 pneumococcal polysaccharide PPV23 7 completed [facility] 12/24/2023 17:29:41 Tdap 4 completed [facility] 12/24/2023 17:29:41 Pneumococcal conjugate PCV 13 0 completed [facility] 12/24/2023 17:29:41 Pneumococcal conjugate PCV 13 8 completed [facility] 12/24/2023 17:29:41 Influenza, high-dose, trivalent, PF 8 completed [facility] 12/24/2023 17:29:41 Influenza, split virus, trivalent, preservative 8 completed [facility] 12/24/2023 17:29:41 Influenza, split virus, quadrivalent, PF 0 [facility] 12/24/2023 17:29:41 Past Encounters Encounter ID Performer Location Encounter Start Date Encounter Closed Date Diagnosis/Indication Diagnosis SNOMED-CT Code Diagnosis ICD10 Code Diagnosis Note [id number] Natalia Wong, [facility] [address] [place] [address] [address] 12/13/2023 09:08:50 12/13/2023 16:52:02 Aphonia 138990631 R49.1 Marcelina is progressin g in alaryngeal [...] intake adequate to support nutritiona l needs. [id number] Natalia Wong, [facility] [address] [place] [address] [address] 12/27/2023 08:15:34 12/27/2023 11:34:37 Aphonia 140156706 R49.1 Marcelina is progressin g in alaryngeal voice restoratio n. She is able to produce intelligib le speech through electrolar ynx at the sentence level. She is also increasing independen ce in care and usage of HME accessorie s. She describes difficulty swallowing , and diet is limited to sips of liquid with nutrition via PEG. Plan:Oliverio nue speech therapy plan of care. [id number] [facility]liver [facility] [address] [place] [address] 12/24/2023 16:36:39 12/25/2023 11:30:53 Nodule of lung 260169428 R91.1 I reviewed the PET scan in [...] surveillan ce. Chronic ob structive pulmonary disease 95197722 J44.9 For COPD she will continue DuoNeb with hypertonic saline for pulmonary hygiene. She is aware that she needs to let us know if she has any change in her sputum color or increase in secretions and will need to collect sputum for culture and sensitivit y. Malignant tumor of larynx 436259360 C32.9 Follow-up with ENT as scheduled. [id number] Natalia Wong, [facility] [address] [place] [address]) [address] [place] [phone] 01/14/2024 14:49:21 01/14/2024 15:47:07 Aphonia 727022622 R49.1 Marcelina is progressin g in alaryngeal voice restoratio n. She is able to produce intelligib le speech through electrolar ynx at the sentence level. She is also increasing in independen ce in care and usage of HME accessorie s. She describes difficulty swallowing , and diet is limited to sips of liquid with nutrition via PEG. Plan:Oliverio nue speech therapy plan of care. [id number] Natalia Wong, [facility] [address] [place] [address]) [address] [place] [phone] 01/30/2024 10:06:17 01/30/2024 11:38:11 Aphonia 427679232 R49.1 Marcelina is progressin g in alaryngeal voice restoratio n. She is able to produce intelligib le speech through electrolar ynx at the sentence level. She is also increasing in independen ce in care and usage of HME accessorie s. She describes difficulty swallowing , and diet is limited to sips of liquid and nutrition via PEG. Plan:Oliverio nue speech therapy plan of care. [id number] Natalia Wong, [facility] [address] [place] [address]) [address] [place] [phone] 02/27/2024 08:02:52 02/27/2024 09:07:14 Aphonia 054532318 R49.1 Marcelina is progressin g in alaryngeal voice restoratio n. She is able to produce intelligib le speech through electrolar ynx at the sentence level. She is also showing emergence of tracheoeso phageal phonation, best elicited now through finger occlusion of stoma. Status of therapy goals is as follows:1. Patient will communicat e intelligib ly through alaryngeal communicat ion at the conversati on level.Goal met for electrolar ynx, not met for tracheoeso phageal speech2. Patient will be educated regarding benefits of pulmonary restoratio n.Goal met Plan:Recom mend speech therapy for 8 visits over 12 weeks. Therapy will focus on the following objectives :1. Patient will communicat e intelligib ly through tracheoeso phageal phonation at the conversati on level.2. Patient will independen tly care for voice prosthesis and accessorie s.3. Patient will be educated regarding options for hands free communicat ion.4. Voice prosthesis refitting will be completed as needed to allow for tracheoeso phageal phonation without risk of aspiration . [id number] Natalia Wong, [facility] [address] [place] [address] [address] 03/13/2024 08:02:15 03/13/2024 10:38:51 Aphonia [id number] R49.1 Marcelina is progressin g in alaryngeal voice restoratio n. She is able to produce intelligib le speech through electrolar ynx at the sentence level. She is also showing emergence of tracheoeso phageal phonation, best elicited now through finger occlusion of stoma. Quality of tracheoeso phageal phonation is thin but intelligib le. Plan:Oliverio nue speech therapy plan of care. Goals:1. Patient will communicat e intelligib ly through tracheoeso phageal phonation at the conversati on level.2. Patient will independen tly care for voice prosthesis and accessorie s.3. Patient will be educated regarding options for hands free communicat ion.4. Voice prosthesis refitting will be completed as needed to allow for tracheoeso phageal phonation without risk of aspiration . [id number] Siddharth Price MD [facility] Infecti[facility] Disease ([place]) [address] [place] [phone] 03/19/2024 09:40:52 03/19/2024 16:54:45 Ulcer of lower extremity 35877863 L97.912 Additional diagnosis detail: Traumatic ulcer of right lower leg with fat layer exposed Organism i solated in wound swab by culture 987337017 R89.5 Additional diagnosis detail: Wound swab culture positive Edema of foot 753888939 R60.0 Additional diagnosis detail: Pedal edema Stasis dermatitis 205862 05 I87.2 History of malignant neoplasm of larynx 279343903 Z85.21 Additional diagnosis detail: History of laryngeal cancer History of methicillin resistant Staphylococcus aureus infection 281526058 Z86.14 Additional diagnosis detail: History of MRSA infection History of blood disorder 226557420 Z87.898 Additional diagnosis detail: History of bruising easily [id number] Natalia Wong, [facility] [address] [place] [address] [address] 03/27/2024 08:49:10 03/27/2024 10:55:43 Aphonia 555947205 R49.1 Marcelina is working towards a laryngeal voice restoratio n. She is able to communicat e through electrolar ynx at the simple phrase level. She was unable to produce tracheoeso phageal phonation today, presumably related to narrow neopharyng eal lumen. Plan:Oliverio mata speech therapy plan of care. Goals:1. Patient will communicat e intelligib ly through tracheoeso phageal phonation at the conversati on level.2. Patient will independen y care for voice prosthesis and accessorie s.3. Patient will be educated regarding options for hands free communicat ion.4. Voice prosthesis refitting will be completed as needed to allow for tracheoeso phageal phonation without risk of aspiration . [id number] Siddharth Price MD [facility] Wound Infectiou s Disease ([place]) [address] [place] [phone] 04/02/2024 09:53:30 04/02/2024 16:20:09 Ulcer of lower extremity 69162119 L97.912 Additional diagnosis detail: Traumatic ulcer of right lower leg with fat layer exposed Organism i solated in wound swab by culture [id number] R89.5 Additional diagnosis detail: Wound swab culture positive Edema of foot 378419291 R60.0 Additional diagnosis detail: Pedal edema Stasis dermatitis 116120 05 I87.2 History of malignant neoplasm of larynx [id number] Z85.21 Additional diagnosis detail: History of laryngeal cancer History of methicillin resistant Staphylococcus aureus infection [id number] Z86.14 Additional diagnosis detail: History of MRSA infection History of blood disorder 500781372 Z87.898 Additional diagnosis detail: History of bruising easily [id number] Siddharth Price MD [facility] Wound Infectiou [facility] ([place]) [address] [place] [phone] 04/16/2024 09:23:21 04/16/2024 15:01:27 Ulcer of lower extremity [id number] L97.912 Additional diagnosis detail: Traumatic ulcer of right lower leg with fat layer exposed Organism i solated in wound swab by culture [id number] R89.5 Additional diagnosis detail: Wound swab culture positive Edema of foot [id number] R60.0 Additional diagnosis detail: Pedal edema Stasis dermatitis 798131 05 I87.2 History of malignant neoplasm of larynx 830776082 Z85.21 Additional diagnosis detail: History of laryngeal cancer History of methicillin resistant Staphylococcus aureus infection [id number] Z86.14 Additional diagnosis detail: History of MRSA infection History of blood disorder 407018449 Z87.898 Additional diagnosis detail: History of bruising easily [id number] Natalia Wong, [facility] [address] [place] [address] [phone] 04/24/2024 08:04:58 04/24/2024 09:03:46 Aphonia [id number] R49.1 Marcelina is working towards a laryngeal voice restoratio n. She is able to communicat e through electrolar ynx at the simple phrase level. Since recent esophageal dilation, patient is able to achieve pressed tracheoeso phageal phonation through simple finger occlusion. Other tracheoeso phageal phonation options are being explored. Plan:Oliverio nue speech therapy plan of care. Goals:1. Patient will communicat e intelligib ly through tracheoeso phageal phonation at the conversati on level.2. Patient will independen y care for voice prosthesis and accessorie s.3. Patient will be educated regarding options for hands free communicat ion.4. Voice prosthesis refitting will be completed as needed to allow for tracheoeso phageal phonation without risk of aspiration . [id number] Natalia Wong, [facility] [address] [place] [address] [phone] 05/08/2024 08:00:54 05/08/2024 09:08:30 Aphonia [id number] R49.1 Marcelina is working towards a laryngeal voice restoratio n. She is able to communicat e through electrolar ynx at the simple phrase level. Over the last 2 weeks ability to produce tracheoeso phageal phonation has declined. Patient was aphonic today. In the same time. Patient has noticed increased difficulty swallowing , and she is currently able to swallow only scant liquid sips. Presume that difficulty with tracheoeso phageal phonation is related to a narrow neopharyng eal lumen. Plan:Oliverio e speech therapy plan of care. Goals:1. Patient will communicat e intelligib ly through tracheoeso phageal phonation at the conversati on level.2. Patient will independen tly care for voice prosthesis and accessorie s.3. Patient will be educated regarding options for hands free communicat ion.4. Voice prosthesis refitting will be completed as needed to allow for tracheoeso phageal phonation without risk of aspiration . Session was assisted by Madhu Chacon, Speech-Daron guage Pathology Print Line Tailer under 100% supervisio n. [id number] Siddharth Price MD [facility] Wound Infectiou [facility] ([place]) [address] [place] [phone] 05/14/2024 09:34:03 05/14/2024 14:36:27 Ulcer of lower extremity [id number] L97.912 Additional diagnosis detail: Traumatic ulcer of right lower leg with fat layer exposed Edema of foot 495619385 R60.0 Additional diagnosis detail: Pedal edema Stasis dermatitis 910100 05 I87.2 History of malignant neoplasm of larynx 906394718 Z85.21 Additional diagnosis detail: History of laryngeal cancer History of methicillin resistant Staphylococcus aureus infection 816415301 Z86.14 Additional diagnosis detail: History of MRSA infection [id number] MD KIM Rice [facility] ([place]) [address] [facility] [place] [address] 06/24/2024 09:29:31 06/24/2024 17:23:57 Nodule of lung 674270193 R91.1 Follow-up CT scan to reevaluate the nodule is impaired due to acute pneumonia of the left lower lobe. Previous PET scan was negative. Will need to arrange for a follow-up CT scan in 3 months, but I will arrange this after I see her back in a few weeks for recheck of her pneumonia. Chronic ob structive pulmonary disease 83682288 J44.9 For COPD she will continue DuoNeb with hypertonic saline for pulmonary hygiene. She is aware that she needs to let us know if she has any change in her sputum color or increase in secretions and will need to collect sputum for culture and sensitivit y. Malignant tumor of larynx 937116750 C32.9 Follow-up with ENT as scheduled. Pneumonia [id number] J18. 9 He has a more acute pneumonia in the left lower lobe. I am concerned that she needs more emergent treatment. We are going to collect sputum for culture and sensitivit y but I am and start her on Augmentin liquid 750 mg twice daily for at least 3 weeks similar to what she responded to previously . If her sputum cultures come back with an alternativ e pathogen we will have to adjust accordingl y. Will walk her before she leaves and see if she requires supplement al oxygen with activity. I would like to see her back for recheck in 3 to 4 weeks with an updated chest x-ray. She was advised to seek immediate medical attention if she worsens. [id number] MD KIM Rice 2nd [facility] [address] [place] [phone] 06/24/2024 11:00:54 06/24/2024 17:31:23 Chronic obstructive pulmonary disease 58269472 J44.9 For COPD she will continue DuoNeb with hypertonic saline for pulmonary hygiene. She is aware that she needs to let us know if she has any change in her sputum color or increase in secretions and will need to collect sputum for culture and sensitivit y. [id number] Andrea Tolliver MD [facility] [place] [facility] [place] [address] [facility],[address] [place] [phone] 08/06/2024 13:15:40 08/06/2024 16:50:07 Nodule of lung [id number] R91.1 Follow-up CT scan to reevaluate the nodule is impaired due to acute pneumonia of the left lower lobe on recent CT scan from June. Previous PET scan was negative. Will need to arrange for a follow-up CT scan in 3 months. Chronic ob structive pulmonary disease 80121970 J44.9 For COPD she will continue DuoNeb with hypertonic saline for pulmonary hygiene. She is aware that she needs to let us know if she has any change in her sputum color or increase in secretions and will need to collect sputum for culture and sensitivit y. Vaccines are up-to-date . Malignant tumor of larynx [id number] C32.9 Follow-up with ENT as scheduled. [id number] Andrea Tolliver MD [address] Pul ([place]) [address] [facility],[address] [place] [phone] 11/03/2024 13:28:41 11/03/2024 17:44:51 Chronic obstructive pulmonary disease 31654067 J44.9 For COPD she will continue arformoter ol twice daily DuoNeb with hypertonic saline for pulmonary hygiene. She is aware that she needs to let us know if she has any change in her sputum color or increase in secretions and will need to collect sputum for culture and sensitivit y. Vaccines are up-to-date . Malignant tumor of larynx [id number] C32.9 Follow-up with ENT as scheduled. Pulmonary aspiration [id number] 47143 T17.908D She has had waxing and waning pulmonary infiltrate s and nodules. In June the recent left lower lobe nodular infiltrate s have resolved, but she has a new wedge-shap ed abnormalit y noted on her CT scan presently. As I suspected previously , she is likely chronicall y aspirating from her GI tract. She has had a T-E fistula. I did advise her it probably be reid to get a follow-up CT scan again in 4 to 6 months as it has been difficult to follow her to resolution of her waxing and waning pulmonary infiltrate s. [id number] Natalia Wong, [facility] [address] [place] [address] ([place]) [address] [phone] 11/16/2024 08:23:09 11/16/2024 09:47:43 Aphonia [id number] R49.1 ASSESSMENT :Voice prosthesis was successful ly replaced with a 20 Kinyarwanda 6 mm [employer] Bustos voice prosthesis , [facility] [id number]. Marcelina is working towards alaryngeal voice restoratio n. She is able to communicat e through electrolar ynx at the simple phrase level. 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 Patient was oriented an additional option today, the WYATT voice from [employer], and online interest form was completed Plan:Recom mend 4 sessions of speech therapy over the next 12 weeks to address the following goals:1. Patient will independen y care for voice prosthesis and accessorie s.2. Patient will communicat e through electrolar ynx at the phrase level with intelligib ility on 4 of 5 trials.3. Patient will explore interest in alaryngeal communicat ion through the WYATT voice. Health Concerns Section Related Observation LastModified by Organization Detai ls LastModified Time None Recorded Concern Status LastModified by Organization Details LastModified Time None Recorded Advance Directives Directive N: Payers Insurance Date Sequence Insurance Name Policy Number Policy Carrizales Covered Member ID Carrizales Member ID Guarantor Name 11/17/2024 1 [facility] (MEDICARE REPLACEMENT/ ADVANTAGE - [place]PO) [id number] Marcelina Carroll [id number] Marcelina Carroll Notes Date Note Type Note Provider Name and Address Organization Details Recorded Time 06/24/2024 text/html The patient is a 74-year-old female with a former 53-xdof-bfqh smoking history quit in 2003. She has a complicated oncologic history. 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 In July 2023, she had an increase in purulent sputum production with CT scan findings demonstrating right lower lobe infiltrates with a complex right pleural effusion. There was some mild adenopathy present and findings were suggestive of a lung abscess. Even though she has a PEG tube she was eating a bit orally. I was concerned that she developed possible aspiration pneumonia because of concerns about a TE fistula and I considered admission. Treated with appropriate antibiotics. Repeat CT scan was done On 08/08 at [facility]. There is significant improvement in the partially cavitary infiltrate in the right lower lobe as well as some improvement in the surrounding effusion. No progressive adenopathy appreciated previously noted right hilar and subcarinal adenopathy seems to be improved. In early August 2023,she was noticing significant improvement in purulent sputum production and she was not having any fever, we made a decision to complete 6 weeks of antibiotics. I also recommended that she continue to follow-up with speech therapy and ENT. She was previously scheduled by ENT to have a follow-up CT scan that [facility] She had resolution of the previously noted right lower lobe nodule and infiltrate, but had some new stuff in the left lower lobe that looked inflammatory. There was some concern it could be metastatic, but the rapidity of the findings in comparison to the previous CT scan performed in early August suggested this could be inflammatory She had a repeat CT scan on November 28 was reviewed and compared back to the previous CT scan on 11/03 as well as the previous CT scan from 08/[address] scan in early July. She has some mucoid debris in the trachea and bronchial atkins are thickened consistent with chronic bronchitis. The persistent tree-in-bud opacities are noted in the lung bases which are thought to be infectious in nature. She has a persistent 8 mm nodule in the left lower lobe unchanged compared to the 11/03 CT scan. Short interval follow-up or a PET scan was recommended.PET scan was reviewed her previous visit on December 23 and compared to previous imaging. The lower lobe nodules did not demonstrate hypermetabolic changes. There is no worrisome adenopathy in the cervical chain she has postoperative laryngectomy changes in activity in the upper esophagus that was asymmetric towards the left. It was thought to represent inflammatory change and this is the area where she just had a procedure her ENT doctor attempted to place a T-E fistula on the sixth of this month and they had difficulty because she had an upper esophageal stricture and she could not get through. She states that it has been swollen since that time. Overall, the PET scan were reassuring. At the time of her previous visit on December 23. We elected to continue DuoNebs for COPD with hypertonic saline and get a follow-up CT scan. CT scan today was reviewed and compared to previous imaging from December. She has a new consolidation at the left base worrisome for inflammatory or infectious etiology. There is some also new nodularity present adjacent to the consolidation. She has peribronchial thickening noted in the left lower lobe. Some other stable nodules were noted. She does indicate that she had an esophageal dilatation 2 days ago and has not been feeling well since. They apparently had some topical difficulties fully dilating her esophagus. She has had some fatigue, chills, cough with purulent sputum production and a little more shortness of breath. Her oxygen saturations generally run between 92 and 94% and they have been running a little lower. Andrea Tolliver MD [facility] [place] [address], [phone], [facility] 06/24/2024 10:57:12 08/06/2024 text/html The patient is a 74-year-old female with a former 90-biku-voum smoking history quit in 2003. She has a complicated oncologic history. 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 In July 2023, she had an increase in purulent sputum production with CT scan findings demonstrating right lower lobe infiltrates with a complex right pleural effusion. There was some mild adenopathy present and findings were suggestive of a lung abscess. Even though she has a PEG tube she was eating a bit orally. I was concerned that she developed possible aspiration pneumonia because of concerns about a TE fistula and I considered admission. Treated with appropriate antibiotics. Repeat CT scan was done On 08/08/23 at [facility]. There is significant improvement in the partially cavitary infiltrate in the right lower lobe as well as some improvement in the surrounding effusion. No progressive adenopathy appreciated previously noted right hilar and subcarinal adenopathy seems to be improved. She had a follow-up CT scan that was [facility] She had resolution of the previously noted right lower lobe nodule and infiltrate, but had some new infiltrative changes in the left lower lobe that looked inflammatory. There was some concern it could be metastatic, but the rapidity of the findings in comparison to the previous CT scan performed in early August suggested this could be inflammatory She had a repeat CT scan on November 28 was reviewed and compared back to the previous CT scan on 11/03 as well as the previous CT scan from 08/[address] scan in early July. She has some mucoid debris in the trachea and bronchial atkins are thickened consistent with chronic bronchitis. The persistent tree-in-bud opacities are noted in the lung bases which are thought to be infectious in nature. She has a persistent 8 mm nodule in the left lower lobe unchanged compared to the 11/03 CT scan. Short interval follow-up or a PET scan was recommended.She had a PET scan performed on December 24, 2023 that was compared to previous imaging. The lower lobe nodules did not demonstrate hypermetabolic changes. There is no worrisome adenopathy in the cervical chain she has postoperative laryngectomy changes in activity in the upper esophagus that was asymmetric towards the left. It was thought to represent inflammatory change and this is the area where she just had a procedure her ENT doctor attempted to place a T-E fistula and had difficulty because she had an upper esophageal stricture and she could not get through. She states that it has been swollen since that time. Overall, the PET scan were reassuring. We elected to continue DuoNebs for COPD with hypertonic saline and get a follow-up CT scan. At her most recent visit with me on 06/[address] was reviewed and compared to previous imaging from December. She has a new consolidation at the left base worrisome for inflammatory or infectious etiology. There is some also new nodularity present adjacent to the consolidation. She has peribronchial thickening noted in the left lower lobe. Some other stable nodules were noted. She was not feeling well with no respiratory symptoms and she had an esophageal dilatation just a couple days prior. I was concerned she had a left lower lobe pneumonia and we treated her with a course of levofloxacin. She returns today for short interval follow-up. She returns today for reevaluation. She states she is feeling considerably better after completing the course of antibiotics. She denies cough or purulent sputum production. She had a follow-up chest x-ray demonstrates some mild scarring at the right base but nothing acute. She is scheduled to see her ENT physician next week with an updated CT to discuss determine the next steps. She is on 100% tube feeds and not able to swallow. She is doing her nebulizers with a trach collar. Daniella chand, [facility] 08/06/2024 14:19:29 11/03/2024 text/html The patient is a 74-year-old female with a former 48-mrco-qpzf smoking history quit in 2003. She has a complicated oncologic history. 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 Her history is complicated and summarized as follows: In July 2023, she had an increase in purulent sputum production with CT scan findings demonstrating right lower lobe infiltrates with a complex right pleural effusion. There was some mild adenopathy present and findings were suggestive of a lung abscess. Even though she has a PEG tube she was eating a bit orally. I was concerned that she developed possible aspiration pneumonia because of concerns about a TE fistula and I considered admission. Treated with appropriate antibiotics. Repeat CT scan was done On 08/08/23 demonstrated significant improvement in the partially cavitary infiltrate in the right lower lobe as well as some improvement in the surrounding effusion. No progressive adenopathy appreciated previously noted right hilar and subcarinal adenopathy seems to be improved. She had a follow-up CT scan that was [facility] She had resolution of the previously noted right lower lobe nodule and infiltrate, but had some new infiltrative changes in the left lower lobe that looked inflammatory. There was some concern it could be metastatic, but the rapidity of the findings in comparison to the previous CT scan performed in early August suggested this could be inflammatory She had a PET scan performed on December 24, 2023 that was compared to previous imaging. The lower lobe nodules did not demonstrate hypermetabolic changes. There is no worrisome adenopathy in the cervical chain she has postoperative laryngectomy changes in activity in the upper esophagus that was asymmetric towards the left. It was thought to represent inflammatory change and this is the area where she just had a procedure her ENT doctor attempted to place a T-E fistula and had difficulty because she had an upper esophageal stricture and she could not get through. She states that it has been swollen since that time. Overall, the PET scan were reassuring. CT scan performed on June 24 demonstrated a new consolidative process in the left lower lobe and some nodularity at the left base so I gave her a course of Augmentin and recommended a follow-up CT scan in 3 months to reevaluate pulmonary nodules, and continue her nebulizer therapy for COPD. Repeat CT scan demonstrates that the left lower lobe consolidative process has improved. She does have some new changes with tree-in-bud opacity in the left upper lobe. Other left lower lobe nodules are unchanged. She has a wedge-shaped consolidative change in her right lower lobe. The findings are in keeping with chronic aspiration. She states she is feeling fairly good today. She did have to take a course of antibiotics a couple weeks ago for purulent sputum production given to her by her primary care provider, but after completing that she is feeling better. She has been losing some weight and is going to see a fabric worker fitter. 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 Andrea Tolliver MD [address] [facility], [place], [phone], [facility] 11/03/2024 14:24:40 11/16/2024 text/html Marcelina Carroll is a 74 year-old woman seen for Speech-Language Pathology evaluation on 11/16/2024. Session began at 0725 and concluded at 0805. Speech evaluation and treatment was ordered by Dr. Brenner for aphonia with date of onset of 11/05/2024. 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 She underwent total laryngectomy 05/20/2023 due to a dysfunctional larynx. Secondary TEP was completed 02/07/2024. Marcelina has been unable to use voice prosthesis for communication for several months due to stenosis of the neopharyngeal lumen, confirmed by esophagram. Speech therapy evaluation was recommended today for voice prosthesis maintenance. Prosthesis has been in place for 9 months, and replacement is indicated to avoid degradation. Natalia Wong, CONE OPERATOR [address] [facility], [place], [address], [facility] 11/16/2024 09:07:51 OBGyn Episode No OBEpisode recorded.
--- NOTE | 2025-01-15 09:04 | ED.NAVMDI ---
HPI - Nausea/Vomiting/Diarrhea General Chief complaint: Nausea/Vomiting/Diarrhea Stated complaint: nausea Time Seen by Provider: 01/15/25 09:03 Source: patient Mode of arrival: ambulatory Limitations: other ( Patient cannot speak due to tracheostomy chronically in place; patient writes on pen and paper) History of Present Illness HPI Narrative: patient is a 74-year-old female with chronic PEG tube and tracheostomy with a recent surgery to try to dilate her esophagus. While she was at that surgery, they replaced her PEG tube with a new PEG tube. The PEG tube fell out in the last day and the patient replaced it on her own. She is having bloating and some distention of the belly without pain. No vomiting but does have nausea. chronic diarrhea. MD elicited complaint: nausea Pertinent past history: other ( Chronic PEG and tracheostomy) Onset (ago): day(s) ( 1) Description of vomiting: none Description of diarrhea: other ( none) Associated nausea: Yes Associated abdominal pain: No Location of pain: none Radiation: other ( none) Pain consistency: other ( none) Severity: mild Pain scale (0-10): 1 Quality: other ( abdomen distension and gassy sensation) Exacerbating factors: other ( PEG tube fell out and she replaced on her own today) Relieving factors: none Context: other ( patient has new PEG tube for feeding and it fell out so she replaced it on her own and came to the ER for evaluation with associated abdominal distention and gas sensation) Associated symptoms: fatigue Treatment prior to arrival: none Related Data Home Medications ?Medication ?Instructions ?Recorded ?Confirmed ?Last Taken ?Type albuterol sulfate 2.5 mg/3 mL 2.5 mg inhalation Q4-6H 04/15/22 03/09/24 Unknown History (0.083 %) solution for nebulization cetirizine 10 mg tablet 5 mg feeding tube DAILY 04/15/22 03/09/24 Unknown History famotidine 40 mg tablet 40 mg feeding tube DAILY 04/15/22 03/09/24 Unknown History lidocaine 5 % topical patch 1 patch transdermal Q12-24H 04/15/22 03/09/24 Unknown History metoprolol succinate 25 mg 25 mg PO DAILY 04/15/22 03/09/24 Unknown History tablet,extended release 24 hr omeprazole 40 mg capsule,delayed 40 mg feeding tube DAILY 04/15/22 03/09/24 Unknown History release trazodone 100 mg tablet 100 mg feeding tube HS 04/15/22 03/09/24 Unknown History amlodipine 5 mg tablet 2.5 mg feeding tube DAILY 03/09/24 03/09/24 Unknown History atorvastatin 40 mg tablet 40 mg PO DAILY 03/09/24 03/09/24 Unknown History montelukast 10 mg tablet 10 mg feeding tube DAILY 03/09/24 03/09/24 Unknown History Allergies Allergy/AdvReac Type Severity Reaction Status Date / Time No Known Allergies Allergy Verified 01/15/25 09:07 Review of Systems Review of Systems: All systems reviewed & are unremarkable except as noted in HPI and below Constitutional: Constitutional: Reports no additional constitutional complaints Eyes: Eyes: Reports no additional eye complaints ENT: Reports system reviewed and no additional complaints, except as documented Cardiovascular: Cardiovascular: Reports no additional cardiovascular complaints Respiratory: Respiratory: Reports no additional respiratory complaints Gastrointestinal: Gastrointestinal: Reports no additional gastrointestinal complaints Genitourinary: Genitourinary: Reports no additional female genitourinary complaints Musculoskeletal: Musculoskeletal: Reports no additional musculoskeletal complaints Integumentary/Breasts: Skin/Breast: Reports system reviewed and no additional complaints, except as docu Neurologic: Reports system reviewed and no additional complaints, except as documented Psychiatric: Psychiatric: Reports no additional psychiatric complaints Endocrine: Endocrine: Reports no additional endocrine complaints Hematologic/Lymphatic: Hematologic/Lymphatic: Reports no additional hematologic/lymphatic complaints Allergic/Immunologic: Allergic/Immunologic: Reports no additional allergic/immunologic complaints [facility] Past Medical History Medical History History of gastrostomy tube placement Chronic obstructive pulmonary disease with (acute) exacerbation Back pain Gastritis Chest pain of uncertain etiology Surgical History Surgical History History of tracheostomy Exam Const: General: healthy appearing Nutritional Appearance: well nourished Orientation/consciousness: patient oriented x3 Limitations: no limitations HENMT: Head: normal to inspection Ears: external ears normal Face/Nose/Sinus: Normal external nose present Eyes: Conjunctivae: conjunctivae normal Cornea: corneas normal Pupils: Equal, round and reactive pupils present Neck: Neck: normal visual inspection Chest: Chest palpation & inspection: normal inspection of the chest Resp: Effort & Inspection: normal respiratory effort and not labored Auscultation: clear to auscultation bilaterally and no crackles Cardio: Rate: regular rate Rhythm: regular rhythm Heart sounds: no murmurs GI: Inspection: non-distended GI Palp: Yes Soft to palpation and No Tenderness to palpation present (GI) Auscultation: bowels sounds not normal and Hypoactive bowel sounds present Other: PEG tube on examination appears to be in place without any external extravasation of food stuffs ( there is food stuffs in the tube) : General: Yes bladder normal to palpation Back/Spine/Pelvis: Back: no CVA tenderness Skin: General skin exam: normal color Rashes: no rashes Wounds: no wounds Neuro: General: patient oriented x3, moves all extremities, no meningeal signs, no focal motor deficits and CN's II-XI intact bilaterally Cranial nerves: Yes Nystagmus not present Speech: No normal speech ( patient does not talk due to tracheostomy) Gait exam (Neuro): Normal gait present Extrem: General: normal to inspection Psych: Mental Status: mental status grossly normal Affect: normal affect Attitude: cooperative Course Vital Signs Vital signs: Vital Signs Temperature 36.3 C L 01/15/25 08:57 Pulse Rate 106 H 01/15/25 08:57 Respiratory Rate 20 01/15/25 08:57 Blood Pressure 108/61 01/15/25 08:57 Pulse Oximetry 96 01/15/25 08:57 Oxygen Delivery Room Air 01/15/25 08:57 Temperature 36.3 C L 01/15/25 08:57 Pulse Rate 106 H 01/15/25 08:57 Respiratory Rate 20 01/15/25 08:57 Blood Pressure 108/61 01/15/25 08:57 Pulse Oximetry 96 01/15/25 08:57 Oxygen Delivery Room Air 01/15/25 08:57 MDM - Nausea/Vomiting/Diarrhea MDM Narrative Medical decision making narrative: Patient is a 74-year-old female with a PEG tubing tracheostomy with a recent PEG tube fall out today and she replaced on her own with some abdomen distension and bloating. We will do x-rays for reassurance of PEG tube placement. We will use Reglan for the ileus found on x-rays. Imaging Data Attestation: I personally reviewed and interpreted this imaging study as follows: Radiologist's impression: KUB shows PEG tube placement in proper position but does suggest a possible dye study for reassurance KUB after Gastrografin placement shows PEG tube in good place an immediate use okayed Discharge Plan Discharge Clinical Impression: Ileus Patient Disposition: Home Condition: Stable Instructions: Ileus (ED) Patient Language: Cook Islander Prescriptions: New metoclopramide HCl [Reglan] 10 mg tablet 10 mg feeding tube TID PRN (Reason: abdominal discomfort) Qty: 20 0RF No Action albuterol sulfate 2.5 mg /3 mL (0.083 %) solution for nebulization 2.5 mg inhalation Q4-6H cetirizine 10 mg tablet 5 mg feeding tube DAILY famotidine 40 mg tablet 40 mg feeding tube DAILY omeprazole 40 mg capsule,delayed release(DR/EC) 40 mg feeding tube DAILY trazodone 100 mg tablet 100 mg feeding tube HS lidocaine 5 % adhesive patch,medicated 1 patch transdermal Q12-24H Rx Instructions: off at HS metoprolol succinate 25 mg tablet extended release 24 hr 25 mg PO DAILY acetaminophen [Tylenol] 325 mg capsule 650 mg PO Q8H PRN (Reason: pain) Qty: 20 0RF omeprazole magnesium [Prilosec OTC] 20 mg tablet,delayed release (DR/EC) 20 mg PO BID Qty: 20 0RF atorvastatin 40 mg tablet 40 mg PO DAILY amlodipine 5 mg tablet 2.5 mg feeding tube DAILY montelukast 10 mg tablet 10 mg feeding tube DAILY Follow-up/Referrals: Ema Hinkle MD [Primary Care Provider] - Time of Disposition: 10:56
[2025-01-15] MEDS: ONDANSETRON HCL ODT 4 MG TABLET PO (09:12)
--- OUTSIDE RECORDS SUMMARY | 2025-01-15 09:34 | XMS_ITS ---
Author Organization Unknown Address [address] [place] [address] [phone] Phone Care Team Providers Care Director Of Dance Name Role Phone WATSONBRIAN LEOS Attending Unavailable [...] 208 CVX Pneumococcal conjugate PCV20 , polysaccharide [id number] conjugate, adjuvant, PF 11/16/2022 Completed 216 CVX Social History Type Status Start Date End Date Code Code Syst em Smoking History Never smoker (Never Smoked) 830082983 SNOMED CT Sex Female Hospital Discharge Instructions [...]
--- OUTSIDE RECORDS SUMMARY | 2025-01-15 09:34 | XMS_ITS | Clinical Summary ---
Author Organization [facility] Address [address] [place] [address] Care Team Providers Care Hammer Setter Name Role Phone Ema Hinkle MD Primary Care Provider Source Comments [facility] Affiliates and Associated Physician Practices is amultiple site organization consisting of ambulatory clinics and hospital sitesin [place], [place], [place] and [place]. This disclosure is being madepursuant to the Care Everywhere program and may not contain all information available regarding this patient. Last updated 18.[employer] [facility] Allergies Active Allergy Reactions Criticality Noted Date [...] mouth daily before breakfast Active nystatin (Mycostatin) 447351 UNIT/GM ointment APPLY OINTMENT TOPICALLY TWO TIMES DAILY AND USE FOR 48 HOURS AFTER RASH IS GONE 5 Active HYDROcodone-tyler taminophen ([place]) 5-325 MG tablet TAKE 1 TO 2 [...] fluticasone propionate (FLONASE) 50 MCG/ACT nasal spray [place] 2 sprays into each nostril once daily [...] Description 01/06/2025 9:29 AM CDT Anesthesia Event [facility] [address] [place] [address] Sam Alvarez, Enedelia Navarro, MEDICAL MANAGER-AUDIOLOGY ASSISTANT 01/06/2025 8:45 AM CDT - 01/06/2025 1:35 PM CDT Surgery [facility] [address] [place] [address] Gerald Gupta MD DIRECT LARYNGOSCOPY 01/06/2025 6:28 AM CDT - 01/08/2025 10:11 AM CDT Hospital Encounter [facility] [address] [place] [address] Gerald Gupta MD Veeramachaneni, Nirmal K, MD Surgery General Discharge Disposition: Home or Self Care 01/06/2025 Travel 12/28/2024 3:00 PM CDT Office Visit [facility] - Cardiothoracic Surgery [address] [facility] [place] [address] Shon Fraga MD Oropharyngeal dysphagia (Primary Dx) 12/28/2024 1:00 PM CDT - 12/28/2024 11:59 PM CDT Hospital Encounter [facility] [address] [place] [address] Gerald Gupta MD Discharge Disposition: Home or Self Care 12/28/2024 Travel 12/10/2024 9:34 AM CDT - 12/10/2024 11:59 PM CDT Hospital Encounter [facility] - Outside Imaging Discharge Disposition: Home or Self Care 12/02/2024 Travel 12/01/2024 Travel 11/27/2024 1:21 PM CDT - 11/27/2024 11:59 PM CDT Hospital Encounter [facility] - Outside Imaging Discharge Disposition: Home or Self Care 11/27/2024 1:21 PM CDT - 11/27/2024 11:59 PM CDT Hospital Encounter [facility] - Outside Imaging Discharge Disposition: Home or Self Care 11/27/2024 1:21 PM CDT - 11/27/2024 11:59 PM CDT Hospital Encounter [facility] - Outside Imaging Discharge Disposition: Home or Self Care 11/27/2024 1:17 PM CDT - 11/27/2024 1:20 PM CDT Hospital Encounter [facility] - Outside Imaging Discharge Disposition: Home or Self Care 11/25/2024 2:30 PM CDT Office Visit [facility] - Otolaryngology [address] [facility] [address] [place] [phone] Gerald Gupta MD Esophageal stenosis (Primary Dx); Pharyngeal dysphagia; Gastrostomy tube dependent (HCC); History of laryngectomy; History of head and neck radiation 11/25/2024 Travel 11/11/2024 Telephone [facility] - ENT [address], [facility] [address] [place] [address] Gerald Gupta MD Appointment 11/09/2024 Telephone [facility] - ENT [address], [facility] [address] [place] [address] Gerald Gupta MD Appointment 11/05/2024 Telephone [facility] - ENT [address], [facility] [address] [place] [address] Gerald Gupta MD Appointment from [...] Recorded Patient Health Questionnaire-2 Score 0 12/28/2024 [facility] [place] [facility] ional [facility] - Occupational Stress [...] any time in the past 12 m [facility], were you homeless or living in a residential (including now)? No 01/07/2025 Comments No Sex [...] Office Visit [facility] - Otolaryngology [address] [place] [address] [place] [address] [place] [address] Health Maintenance Due Date Last [...] TUBE NOTE Routine 01/06/2025 10:09 AM CDT [facility] ED EGD FLEX TRANSORAL DX 01/06/2025 8:59 AM CDT Esophageal stenosis Pharyngeal dysphagia Status post gastrostomy tube placement, follow-up exam History of laryngectomy History of head and neck radiation Case Notes Joint case with Dr. Fraga Special Needs GI endo tower, [id number] (Ultraslim) flexible gastroscope from endoscopy, CRE balloons 12/31 SUPINE C-ARM ENDOSCOPIC VIDEO CART, GASTROSCOPE, PEDIATRIC GASTROSOCPE, FLUOROSCOPY Farrell Bag EGD, STUFF FOR SCOPY Hegar Dilators / CRE Balloons MT ESOPHAGOSCOPY FLEX TRANSORAL W BX 01/06/2025 8:59 AM CDT Esophageal stenosis Pharyngeal dysphagia Status post gastrostomy tube placement, follow-up exam History of laryngectomy History of head and neck radiation Case Notes Joint case with Dr. Fraga Special Needs GI endo tower, [id number] (Ultraslim) flexible gastroscope from endoscopy, CRE balloons 12/31 SUPINE C-ARM ENDOSCOPIC VIDEO CART, GASTROSCOPE, PEDIATRIC GASTROSOCPE, FLUOROSCOPY Farrell Bag EGD, STUFF FOR SCOPY Hegar Dilators / CRE Balloons MT LARYNGOSCOPY,DIRECT ,DIAGNOSTIC 01/06/2025 8:59 AM CDT Esophageal stenosis Pharyngeal dysphagia Status post gastrostomy tube placement, follow-up exam History of laryngectomy History of head and neck radiation Case Notes Joint case with Dr. Fraga Special Needs GI endo tower, [id number] (Ultraslim) flexible gastroscope from endoscopy, CRE balloons [...] Event Date/Time: 01/06/2025 9:40 AM Procedure: intubation ([id number]) Procedure Section: Sedation: under general anesthesia. Indications [...] O POS 01/06/2025 9:4 6 AM CDT [facility] Blood Bank BLOOD SPECIMEN / Unknown Line Draw / Unknown 01/06/2025 8:51 AM CDT 01/06/2025 8:53 AM CDT Sam Alvarez DO LAB - BLOOD BANK ORDERABLE S Final Result [facility] [address] [place] [address], [facility] [phone] * TYPE + SCREEN PANEL (01/06/2025 8:40 AM CDT) Antibody Screen NEG 9:42 AM CDT [facility] ABO Rh O POS 01/06/2025 9:42 AM CDT [facility] Blood Bank BLOOD SPECIMEN / Unknown Venipuncture / Unknown 01/06/2025 8:40 AM CDT 01/06/2025 8:48 AM CDT Sam Alvarez DO LAB - BLOOD BANK ORDERABLE S Final Result Performing Organization Address City/[facility]/ZIP Co de Phone Number [facility] [address] [place] [address], [facility] [phone] * (ABNORMAL) CBC W/O DIFFERENTIAL (01/06/2025 8:40 AM CDT) WBC 5.6 4.0 - 10.7 x10E9/L 01/06/2025 8:59 AM [facility] RBC Count 4.03 3.90 - 5.20 x10E12/L 01/06/2025 8:59 AM [facility] Hemoglobin 11.1(L) 11.9 - 15.8 g/dL 01/06/2025 8:59 AM [facility] Hematocrit 33.9(L) 34.8 - 46.1 % 01/06/2025 8:59 AM [facility] MCV 84.1 80.0 - 98.0 fL 01/06/2025 8:59 AM [facility] MCH 27.5 26.7 - 33.6 pg 01/06/2025 8:59 AM [facility] MCHC 32.7 31.7 - 36.3 g/dL 01/06/2025 8:59 AM [facility] RDW-CV 14.0 11.3 - 14.8 % 01/06/2025 8:59 AM [facility] Platelet Count 152 150 - 420 x10E9/L 01/06/2025 8:59 AM [facility] MPV 10.5 7.8 - 11.4 fL 01/06/2025 8:59 AM [facility] Blood BLOOD SPECIMEN / Unknown Venipuncture / Unknown 01/06/2025 8:40 AM CDT 01/06/2025 8:51 AM CDT us Sam Alvarez DO LAB - HEMATOLOGY ORDERABLE S Final Result [facility] [address] [place] [address], [facility] [phone] * (ABNORMAL) BASIC METABOLIC PANEL (CALCIUM TOTAL) (01/06/2025 8:40 AM CDT) BUN 25 7 - 26 mg/dL 01/06/2025 9:16 AM [facility] Creatinine 0.91 0.56 - 0.96 mg/dL 01/06/2025 9:16 AM [facility] Sodium 136 136 - 145 mmol/L 01/06/2025 9:16 AM [facility] Potassium 4.1 3.5 - 4.5 mmol/L 01/06/2025 9:16 AM [facility] Chloride 103 98 - 107 mmol/L 01/06/2025 9:16 AM [facility] CO2 28 22 - 29 mmol/L 01/06/2025 9:16 AM [facility] Glucose 97 70 - 99 mg/dL 01/06/2025 9:16 AM [facility] Calcium 9.0 8.4 - 10.2 mg/dL 01/06/2025 9:16 AM [facility] Anion Gap 5(L) 6 - 16 01/06/2025 9:16 AM [facility] BUN/Creatinine Ratio 27(H) 7 - 23 01/06/2025 9:16 AM [facility] Osmolality Calculated 286 275 - 295 mOsm/kg 01/06/2025 9:16 AM T [facility] eGFR by CKD-EPI 67(L) >=90 mL/min/1.7 3 m2 01/06/2025 9:16 AM T [facility] Comment:Estimated Glomerular Filtration Rate (eGFR) calculated using the CKD-EPI Creatinine Equation (2020), per the National Kidney Foundation and [place] Society [employer] Neph[employer] recommendations. Blood BLOOD SPECIMEN / Unknown Venipuncture / Unknown 01/06/2025 8:40 AM CDT 01/06/2025 8:51 AM CDT us Sam Alvarez DO LAB - CHEMISTRY ORDERABLES Final Result [facility] [address] [place] [address], 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 Source: [facility]. 07/04/2023 Insurance [facility] Advance Directives * Full Code (Latest Code Status on File) Date Activated Date Inactivated Comments 01/06/2025 11:03 AM 01/08/2025 11:18 AM Care Teams Hammer Setter Relationship Specialty Start Date End Date Ema Hinkle MD PCP - General Family Medicine 04/15/18
[2025-01-15] MEDS: METOCLOPRAMIDE HCL INJ 10 MG/2 ML VIAL IM (09:51)
[2025-01-15 10:12] VITALS: BP 131/72; PULSE 83; RESP 17; O2SAT 98
[2025-01-15 11:05] VITALS: BP 144/78; PULSE 91; RESP 17; TEMP 36.8; O2SAT 98
== END 2025-01-15 11:05 | disposition home or self-care (01) ==
PROVIDERS: Emergency Provider Emergency Medicine; PCP Family Medicine
DX: K56.7 Ileus, unspecified (principal); J44.9 Chronic obstructive pulmonary disease, unspecified; Z93.0 Tracheostomy status
CPT/HCPCS: 43762; 74018; 96372; 99283; A9270; J2765

== ENCOUNTER 2025-01-19 10:24 | Emergency (ER) | payer MEDICARE, OTHER, SELFPAY ==
--- NOTE | ~2025-01-19 | XR_ITS ---
XR chest 2V Ordering provider: Oseas Hernandez MD History: 74 years Female with . abnormal CT abdomen / pain . Comparison: None. FINDINGS: MEDIASTINUM: The cardiac silhouette is not enlarged. LUNGS: No infiltrates, effusions or pneumothorax. Underlying emphysematous changes. OTHER: No free air under the diaphragm. IMPRESSION: No acute cardiopulmonary pathology. Reviewed, dictated and finalized at location A.
--- NOTE | ~2025-01-19 | CT_ITS ---
Non-contrast CT scan of the Abdomen and Pelvis Clinical indication: Ileus Technique: 2.5 mm axial scans were obtained through the abdomen and pelvis without intravenous or or al contrast. Dose reduction technique was used on this scan by utilizing automated exposure control a nd iterative reconstruction technique. The dose-length product (DLP) was 205.38 mGy-cm. COMPARISON: 07/22/2023 Findings: Images through the lung bases reveal probable minimal bibasilar tree-in-bud opacities with linear right basilar scarring or atelectasis. Density peripherally calcified lesion in the right kidney is unchanged. Status post left nephrectomy. The liver, spleen, pancreas, gallbladder, and adrenals appear normal. There are atherosclerotic calci fications of the aorta. . There is no evidence of bowel obstruction. Percutaneous gastrostomy tube in place. Stomach is somewha t distended. Images through the pelvis were performed. There is no evidence of ascites or lymphadenopathy. Urinary bladder unremarkable. No pelvic mass evident. Impression: Distended stomach with percutaneous gastrostomy tube in place. No definite evidence for obstructing l esion. Correlate clinically. Minimal tree-in-bud opacities at the lower lobes bilaterally. Correlate for small airways infectious process. Reviewed, dictated and finalized at location . Impression: Distended stomach with percutaneous gastrostomy tube in place. No definite evid ence for obstructing lesion. Correlate clinically. Minimal tree-in-bud opacities at the lower lobes bilaterally. Correlate for sma ll airways infectious process.
[2025-01-19 10:24] VITALS: BP 151/81; PULSE 98; RESP 18; TEMP 36.6; O2SAT 97
--- NOTE | 2025-01-19 10:36 | ECG_ITS ---
Test Date: 2025-01-19 10:51:32 Measurements Intervals [place] Rate: 91 P: 76 CA: 158 QRS: 169 QRSD: 98 T: 33 QT: 391 QTc: 483 Interpretive Statements SINUS RHYTHM INDETERMINATE AXIS PATTERN CONSISTENT WITH PULMONARY DISEASE NONSPECIFIC ST ELEVATION [0.05+ mV ST ELEVATION] No previous ECG available for comparison Electronically Signed On 01-20-2025 12:30:31 CDT by Marino Connors M.D.
--- OUTSIDE RECORDS SUMMARY | 2025-01-19 10:36 | XMS_ITS ---
Author Organization Unknown Address [address] [place] [phone] Phone Care Team Providers Care Military Communications Specialist Name Role Phone WATSONBRIAN LEOS Attending Unavailable [...] 208 CVX Pneumococcal conjugate PCV20 , polysaccharide [id number] conjugate, adjuvant, PF 11/16/2022 Completed 216 CVX Social History Type Status Start Date End Date Code Code Syst em Smoking History Never smoker (Never Smoked) [id number] SNOMED CT Sex Female Hospital Discharge Instructions [...]
--- OUTSIDE RECORDS SUMMARY | 2025-01-19 10:36 | XMS_ITS | Clinical Summary ---
Author Organization [facility] [employer] Address [address] [place] [address] Care Team Providers Care [employer] Supervisor Name Role Phone Ema Hinkle MD Primary Care Provider Source Comments [facility] [employer],non-[facility] Affiliates and Associated Physician Practices is amultiple site organization consisting of ambulatory clinics and hospital sitesin [place], [place], [place] and [place]. This disclosure is being madepursuant to the Care Everywhere program and may not contain all information available regarding this patient. Last updated 18.[employer] Allergies Active Allergy Reactions Criticality Noted Date [...] mouth daily before breakfast Active nystatin (Mycostatin) 976003 UNIT/GM ointment APPLY OINTMENT TOPICALLY TWO TIMES DAILY AND USE FOR 48 HOURS AFTER RASH IS GONE 5 Active HYDROcodone-tyler taminophen (Sheridan) 5-325 MG tablet TAKE 1 TO 2 [...] fluticasone propionate (FLONASE) 50 MCG/ACT nasal spray Brea 2 sprays into each nostril once daily [...] Description 01/06/2025 9:29 AM CDT Anesthesia Event [facility] [address] [place] [address] Sam Alvarez, Enedelia Navarro, PROFILING MACHINE SETUP OPERATOR-HOTEL CUSTODIAN 01/06/2025 8:45 AM CDT - 01/06/2025 1:35 PM CDT Surgery [facility] [address] [place] [address] Gerald Gupta MD DIRECT LARYNGOSCOPY 01/06/2025 6:28 AM CDT - 01/08/2025 10:11 AM CDT Hospital Encounter [facility] SHORT STAY UNIT [address] [place] [address] Gerald Gupta MD Veeramachaneni, Nirmal K, MD Surgery General Discharge Disposition: Home or Self Care 01/06/2025 Travel 12/28/2024 3:00 PM CDT Office Visit [facility] - Cardiothoracic Surgery [address] [facility] [place] [address] Shon Fraga MD Oropharyngeal dysphagia (Primary Dx) 12/28/2024 1:00 PM CDT - 12/28/2024 11:59 PM CDT Hospital Encounter [facility] PAT [address] [place] [address] Gerald Gupta MD Discharge Disposition: Home or Self Care 12/28/2024 Travel 12/10/2024 9:34 AM CDT - 12/10/2024 11:59 PM CDT Hospital Encounter [facility] - Outside Imaging Discharge Disposition: Home or Self Care 12/02/2024 Travel 12/01/2024 Travel 11/27/2024 1:21 PM CDT - 11/27/2024 11:59 PM CDT Hospital Encounter [facility] - Outside Imaging Discharge Disposition: Home or Self Care 11/27/2024 1:21 PM CDT - 11/27/2024 11:59 PM CDT Hospital Encounter [facility] - Outside Imaging Discharge Disposition: Home or Self Care 11/27/2024 1:21 PM CDT - 11/27/2024 11:59 PM CDT Hospital Encounter [facility] - Outside Imaging Discharge Disposition: Home or Self Care 11/27/2024 1:17 PM CDT - 11/27/2024 1:20 PM CDT Hospital Encounter [facility] - Outside Imaging Discharge Disposition: Home or Self Care 11/25/2024 2:30 PM CDT Office Visit [facility] - Otolaryngology [address] [facility] [address] [place] [id number] Gerald Gupta MD Esophageal stenosis (Primary Dx); Pharyngeal dysphagia; Gastrostomy tube dependent (HCC); History of laryngectomy; History of head and neck radiation 11/25/2024 Travel 11/11/2024 Telephone [facility] - ENT [address], [facility] [address] [place] [address] Gerald Gupta MD Appointment 11/09/2024 Telephone [facility] - ENT [address], [facility] [address] [place] [address] Gerald Gupta MD Appointment 11/05/2024 Telephone [facility] - ENT [address], [facility] [address] [place] [address] Gerald Gupta MD Appointment from [...] Recorded Patient Health Questionnaire-2 Score 0 12/28/2024 [facility] Occup[facility] ional [facility] - Occupational Stress [...] any time in the past 12 m [facility], were you homeless or living in a nursing home (including now)? No 01/07/2025 Comments No Sex [...] Office Visit [facility] - Otolaryngology [address] [place] [address] [place] [address] [place] [address] Health Maintenance Due Date Last [...] Dr. Fraga Special Needs GI endo tower, [id number] (Ultraslim) flexible gastroscope from endoscopy, CRE balloons [...] Dr. Fraga Special Needs GI endo tower, [id number] (Ultraslim) flexible gastroscope from endoscopy, CRE balloons [...] Dr. Fraga Special Needs GI endo tower, [id number] (Ultraslim) flexible gastroscope from endoscopy, CRE balloons [...] Event Date/Time: 01/06/2025 9:40 AM Procedure: intubation (80142) Procedure Section: Sedation: under general anesthesia. Indications [...] O POS 01/06/2025 9:4 6 AM CDT [facility] Blood Bank BLOOD SPECIMEN / Unknown Line Draw / Unknown 01/06/2025 8:51 AM CDT 01/06/2025 8:53 AM CDT Sam Alvarez DO LAB - BLOOD BANK ORDERABLE S Final Result [facility] [address] [place] [address], [facility] [phone] * TYPE + SCREEN PANEL (01/06/2025 8:40 AM CDT) Antibody Screen NEG 9:42 AM CDT [facility] ABO Rh O POS 01/06/2025 9:42 AM CDT [facility] Blood Bank BLOOD SPECIMEN / Unknown Venipuncture / Unknown 01/06/2025 8:40 AM CDT 01/06/2025 8:48 AM CDT Sam Alvarez DO LAB - BLOOD BANK ORDERABLE S Final Result Performing Organization Address City/[facility]/ZIP Co de Phone Number [facility] [address] [place] [address], [facility] [phone] * (ABNORMAL) CBC W/O DIFFERENTIAL (01/06/2025 8:40 AM CDT) WBC 5.6 4.0 - 10.7 x10E9/L 01/06/2025 8:59 AM [facility] RBC Count 4.03 3.90 - 5.20 x10E12/L 01/06/2025 8:59 AM [facility] Hemoglobin 11.1(L) 11.9 - 15.8 g/dL 01/06/2025 8:59 AM [facility] Hematocrit 33.9(L) 34.8 - 46.1 % 01/06/2025 8:59 AM [facility] MCV 84.1 80.0 - 98.0 fL 01/06/2025 8:59 AM [facility] MCH 27.5 26.7 - 33.6 pg 01/06/2025 8:59 AM [facility] MCHC 32.7 31.7 - 36.3 g/dL 01/06/2025 8:59 AM [facility] RDW-CV 14.0 11.3 - 14.8 % 01/06/2025 8:59 AM [facility] Platelet Count 152 150 - 420 x10E9/L 01/06/2025 8:59 AM [facility] MPV 10.5 7.8 - 11.4 fL 01/06/2025 8:59 AM [facility] Blood BLOOD SPECIMEN / Unknown Venipuncture / Unknown 01/06/2025 8:40 AM CDT 01/06/2025 8:51 AM CDT us Sam Alvarez DO LAB - HEMATOLOGY ORDERABLE S Final Result [facility] [address] [place] [address], [facility] [phone] * (ABNORMAL) BASIC METABOLIC PANEL (CALCIUM TOTAL) (01/06/2025 8:40 AM CDT) BUN 25 7 - 26 mg/dL 01/06/2025 9:16 AM [facility] Creatinine 0.91 0.56 - 0.96 mg/dL 01/06/2025 9:16 AM [facility] Sodium 136 136 - 145 mmol/L 01/06/2025 9:16 AM [facility] Potassium 4.1 3.5 - 4.5 mmol/L 01/06/2025 9:16 AM [facility] Chloride 103 98 - 107 mmol/L 01/06/2025 9:16 AM [facility] CO2 28 22 - 29 mmol/L 01/06/2025 9:16 AM [facility] Glucose 97 70 - 99 mg/dL 01/06/2025 9:16 AM [facility] Calcium 9.0 8.4 - 10.2 mg/dL 01/06/2025 9:16 AM [facility] Anion Gap 5(L) 6 - 16 01/06/2025 9:16 AM [facility] BUN/Creatinine Ratio 27(H) 7 - 23 01/06/2025 9:16 AM [facility] Osmolality Calculated 286 275 - 295 mOsm/kg 01/06/2025 9:16 AM T [facility] eGFR by CKD-EPI 67(L) >=90 mL/min/1.7 3 m2 01/06/2025 9:16 AM T [facility] Comment:Estimated Glomerular Filtration Rate (eGFR) calculated using the CKD-EPI Creatinine Equation (2020), per the National Kidney Foundation and [place] [employer]ph[employer] recommendations. 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 Source: [facility]. 07/04/2023 Insurance [facility] Advance Directives * Full Code (Latest Code Status on File) Date Activated Date Inactivated Comments 01/06/2025 11:03 AM 01/08/2025 11:18 AM Care Teams [employer] Supervisor Relationship Specialty Start Date End Date Ema Hinkle MD PCP - General Family Medicine 04/15/18
--- OUTSIDE RECORDS SUMMARY | 2025-01-19 10:36 | XMS_ITS | Data Portability ---
Author Organization [facility], [address] Neurology ([place]) Address [address] [address] Care Team Providers Care Recruiting Team Lead Name Role Phone SAHUNEEL Primary Care Provider [phone] CANDELARIO DOW Referring Provider [phone] Assessment No assessment recorded. Plan of Treatment [...] chest , w/o contr ast 2024 025 [facility] Only - [place] Radiology, [address] [place], [address], 11/03/2024 13:44:17 Medication Orders Augme ntin ES-60 0 600 mg-42 .9 mg/5 mL oral suspe nsion 2023 024 [facility], [address] [place], [address], 06/24/2024 10:50:49 Patient TargetsNo targets recorded. Patient InstructionsNo instructions recorded. Reason for Referral None Reported. Results Created Date Observation Date Name Description Value Unit Range Abnormal Flag Note LastModifiedBy Organization Detail LastModifiedTime 06/24/20 24 06/24/2024 CT, chest , w/o contr ast [facility] [address] [place] [address] Teleph one [phone] Name: Marcelina Simeon 8206 Exam Date: 2023 Age: 74 Physic preston: [...] 9:13 AM cc: Page PAGE 1 of [facility] 1 Mi Only - Sc Radiology [address] [place] [address], [address], 06/24/2024 10:30:32 06/25/20 24 06/24/2024 6 minut e walk test* No observ ation record ed. BARCODE Andrea Tolliver MD [address] [place] [address], [address], 06/25/2024 14:26:45 08/06/19 25 08/06/2024 XR, chest , 2 view [facility] [address] [place] [place] [address] Teleph one [phone] Name: Marcelina Simeon 7813 Exam Date: 2024 Age: 74 Physic preston: Justine freeman MD, Andrea : 1949 Examin ation: XR CHEST 2 VIEWS Exam: XR CHEST 2 VIEWS HISTOR Y: 1 month follow up pneumo mariaa. COMPAR SHERRI: 24 FINDIN GS: There is some opacit y in the right lower lobe in the lung base director of infection control iorly which maybe relate d to pneumo [...] 12:12 PM cc: Page PAGE 1 of [facility] 1 Sc Only - Sc Radiology [address] [place] [address], [address], 08/06/2024 13:19:04 11/04/19 25 11/03/2024 CT, chest , w/o contr ast [facility] [address] [place] [address] Teleph one [phone] Name: Marcelina Simeon [id number] Exam Date: 2024 Age: 74 Physic preston: [...] 12:41 PM cc: Page PAGE 1 of [facility] 1 [email or web address] Mi Only - [facility] Radiology [address], [place], [address], 11/03/2024 13:54:28 01/09/20 25 04/16/2018 imagi ng/di [...] Recorded Time Ct, Chest, W/o Contrast : [facility] [address] [place] [address] Name: Marcelina Carroll Exam Date: 06/24/2024 Age: [...] 1 of NUMPAGES 1 Andrea Tolliver MD [facility] [place] [address], [phone], [facility] 06/24/2024 10:30:32 Xr, Chest, 2 View : [facility] [address] [place] [address] Name: Marcelina Carroll Exam Date: 08/06/2024 Age: [...] NUMPAGES 1 Andrea Tolliver MD [address] [place] [address], [phone], [facility] 08/06/2024 13:19:04 Ct, Chest, W/o Contrast : [facility] [address] [place] [address] Name: Marcelina Carroll Exam Date: 11/03/2024 Age: [...] 12:41 PM cc: Page PAGE 1 of [employer] 1 Andrea Tolliver MD [address] [place] [address], [phone], [facility] 11/03/2024 13:54:29 Problems Name Problem SNOMED Code Status Onset Date Resolution Date Notes Provider Name and Address Organization Details Recorded Time Ulcer of lower extremity 83195548 Active 2023 Siddharth Price MD [facility] [place] [address], [address], [facility] 4 12:26:19 Organism isolated in wound swab by culture 057435903 Active 2023 Siddharth Price MD [facility] [place] [address], [address], [facility] 4 12:26:34 Edema of foot 115551273 Active 2023 Siddharth Price MD [facility] [place] [address], [address], [facility] 4 12:26:41 Stasis dermatitis 32075070 Active 2023 Siddharth Price MD [address] [place] [address], [address], [facility] 4 12:26:48 History of Carey's palsy 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 Active 2023 Manuelcodi ryder null, [facility] 4 10:12:59 Drusen of optic disc 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 Active 2023 [facility] aleksey null, [facility] 4 10:12:59 Narrow angle 864914657 Active 2023 [facility]codi [facility] null, [facility] 4 10:12:59 Ocular hypertension 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 Active 2023 [facility] e null, [facility] 4 10:12:59 Chorioretinal scar 15846112 Active 2023 [facility] aleksey null, [facility] 4 10:12:59 Pneumonia 674368148 Active 2023 Andrea Tolliver MD [address] [place] [address], [place], [address], [facility] 4 10:44:22 Abnormal sputum 805636215 Active 2024 Kyung Brewer null, [facility] 5 11:27:05 Pulmonary aspiration 82947387 Active 2024 Andrea Tolliver MD [address] [place] [address], [place], [address], [facility] 5 14:23:25 Nodule of lung 888788357 Active 2023 Kyung Brewer null, [facility] 4 09:33:54 Aphonia 048303757 Active 2023 Natalia Wong, ANJEL [address] [facility], [place], [address], [facility] 4 12:23:52 Chronic obstructive pulmonary disease 02361804 Active 2023 Andrea Tolliver MD [address] [place] [address], [address], [facility] 4 17:55:56 Malignant tumor of larynx 174719494 Active 2023 Andrea Tolliver MD [address] [place] [address], [address], [facility] 4 17:56:12 Problem Notes None [...] Updated DateTime 5 162.56 cm 21.5 kg/m2 82297.0 5 g 109 /min 92 % 92 % 130/60 mm[Hg] [facility] 5 14:02:58 Date Recorded Body height Body mass index (BMI) Body weight Heart rate Oxygen saturation Oxygen saturation in Arterial blood by Pulse oximetry Systolic And Diastolic Provider Name and Address Organization Details Last Updated DateTime 5 162.56 cm 20.9 kg/m2 52986.8 3 g 91 /min 94 % 94 % 120/62 mm[Hg] [facility] 5 14:00:30 Date Recorded Oxygen saturation Oxygen saturation in Arterial blood by Pulse oximetry Provider Name and Address Organization Details Last Updated DateTime 06/24/2024 92 % 92 % Andrea Tolliver MD [address] [place] [address], [phone] 06/24/2024 10:43:35 Date Recorded Body height Body mass index (BMI) Body weight Heart rate Systolic And Diastolic Provider Name and Address Organization Details Last Updated DateTime 06/24/2024 162.56 cm 23 kg/m2 59328.38 g 107 /min 140/50 mm[Hg] [facility] 4 10:12:30 Social History Question Answer Notes LastModified by Organizat ion Details LastModified Time Tobacco Smoking Status Former Smoker [facility] 06/24/2024 10:15:36 Do You Have An Advance Directive? No [email or web address] Information not available 01/12/2024 What Is Your Level Of Caffeine Consumption? None [email or web address] Information not available 01/12/2024 How Many Times Per Week Do You Exercise? 3-4 Times Per Week [email or web address] Information not available 01/12/2024 When Did You Quit Smoking? 2004 [email or web address] Information not available 01/12/2024 Do You Have A Medical Power Of Wastewater Technician? 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 [email or web address] Information not available 01/12/2024 What is [...] Maternal Grandfather Family history of malignant neoplasm [facility]-[email or web address] Not available 2023 10:53:38 Paternal Grandfather Family history of malignant neoplasm [facility]-685 Not available 2023 10:53:38 Medical History Condition Response Anxiety Disorder N Diabetes N Attention-deficit Hyperactivity Disorder N Bleeding Disorder N High Blood Pressure Y Arthritis [...] Recorded Time pneumococcal polysaccharide PPV23 5 completed [facility] 11/03/2024 14:00:47 zoster live 3 completed [facility] 11/03/2024 14:00:47 Influenza, split virus, quadrivalent, preservative 9 completed [facility] 12/24/2023 17:29:41 Influenza, split virus, quadrivalent, preservative 7 completed [facility] 12/24/2023 17:29:41 Influenza, high-dose, quadrivalent, PF 2 completed [facility] 12/24/2023 17:29:41 COVID-19, mRNA, LNP-S, PF, 30 mcg/0.3 mL dose 1 completed [facility] 12/24/2023 17:29:41 COVID-19, mRNA, LNP-S, PF, 30 mcg/0.3 mL dose 1 completed [facility] 12/24/2023 17:29:41 COVID-19, mRNA, LNP-S, PF, 30 mcg/0.3 mL dose 1 completed [facility] 12/24/2023 17:29:41 Pneumococcal conjugate PCV20, polysaccharide HTM138 conjugate, adjuvant, PF 3 completed [facility] 12/24/2023 17:29:41 pneumococcal polysaccharide PPV23 6 completed [facility] 12/24/2023 17:29:41 pneumococcal polysaccharide PPV23 7 completed [facility] 12/24/2023 17:29:41 Tdap 4 completed [facility] 12/24/2023 17:29:41 Pneumococcal conjugate PCV 13 0 completed [facility] 12/24/2023 17:29:41 Pneumococcal conjugate PCV 13 8 completed [facility] 12/24/2023 17:29:41 Influenza, high-dose, trivalent, PF 8 completed [facility] 12/24/2023 17:29:41 Influenza, split virus, trivalent, preservative 8 completed [facility] 12/24/2023 17:29:41 Influenza, split virus, quadrivalent, PF 0 [facility] 12/24/2023 17:29:41 Past Encounters Encounter ID Performer Location Encounter Start Date Encounter Closed Date Diagnosis/Indication Diagnosis SNOMED-CT Code Diagnosis ICD10 Code Diagnosis Note [id number] Natalia Wong, [facility] [address] [place] [address] [address] 12/13/2023 09:08:50 12/13/2023 16:52:02 Aphonia 735453741 R49.1 Marcelina is progressin g in alaryngeal [...] intake adequate to support nutritiona l needs. [id number] Natalia Wong, [facility] [address] [place] [address] [address] 12/27/2023 08:15:34 12/27/2023 11:34:37 Aphonia 614447283 R49.1 Marcelina is progressin g in alaryngeal voice restoratio n. She is able to produce intelligib le speech through electrolar ynx at the sentence level. She is also increasing independen ce in care and usage of HME accessorie s. She describes difficulty swallowing , and diet is limited to sips of liquid with nutrition via PEG. Plan:Oliverio nue speech therapy plan of care. [id number] [facility]liver [facility] [address] [place] [address] 12/24/2023 16:36:39 12/25/2023 11:30:53 Nodule of lung 446456303 R91.1 I reviewed the PET scan in [...] surveillan ce. Chronic ob structive pulmonary disease 12683540 J44.9 For COPD she will continue DuoNeb with hypertonic saline for pulmonary hygiene. She is aware that she needs to let us know if she has any change in her sputum color or increase in secretions and will need to collect sputum for culture and sensitivit y. Malignant tumor of larynx 471847381 C32.9 Follow-up with ENT as scheduled. [id number] Natalia Wong, [facility] [address] [place] [address]) [address] [place] [address] 01/14/2024 14:49:21 01/14/2024 15:47:07 Aphonia 727629233 R49.1 Marcelina is progressin g in alaryngeal [...] Plan:Oliverio nue speech therapy plan of care. [id number] Natalia Wong, [facility] [address] [place] [address]) [address] [place] [phone] 01/30/2024 10:06:17 01/30/2024 11:38:11 Aphonia 859130234 R49.1 Marcelina is progressin g in alaryngeal [...] Plan:Oliverio nue speech therapy plan of care. [id number] Natalia Wong, [facility] [address] [place] [address]) [address] [place] [phone] 02/27/2024 08:02:52 02/27/2024 09:07:14 Aphonia 913535474 R49.1 Marcelina is progressin g in alaryngeal [...] phageal phonation without risk of aspiration . [id number] Natalia Wong, [facility] [address] [place] [address] [address] 03/13/2024 08:02:15 03/13/2024 10:38:51 Aphonia 637558205 R49.1 Marcelina is progressin g in alaryngeal [...] phageal phonation without risk of aspiration . [id number] Siddharth Price MD [facility] Infectiou s Disease ([place]) [address] [place] [address] 03/19/2024 09:40:52 03/19/2024 16:54:45 Ulcer of lower extremity 45120779 L97.912 Additional diagnosis detail: Traumatic ulcer of right lower leg with fat layer exposed Organism i solated in wound swab by culture 503468284 R89.5 Additional diagnosis detail: Wound swab culture positive Edema of foot 658472567 R60.0 Additional diagnosis detail: Pedal edema Stasis dermatitis 596554 05 I87.2 History of malignant neoplasm of larynx 964699507 Z85.21 Additional diagnosis detail: History of laryngeal cancer History of methicillin resistant Staphylococcus aureus infection 651685719 Z86.14 Additional diagnosis detail: History of MRSA infection History of blood disorder 265526943 Z87.898 Additional diagnosis detail: History of bruising easily [id number] Natalia Wong, [facility] [address] [place] [address] [address] 03/27/2024 08:49:10 03/27/2024 10:55:43 Aphonia 292610396 R49.1 Marcelina is working towards a laryngeal [...] phageal phonation without risk of aspiration . [id number] Siddharth Price MD [facility] Wound Infectiou s Disease ([place]) [address] [place] [phone] 04/02/2024 09:53:30 04/02/2024 16:20:09 Ulcer of lower extremity 67038408 L97.912 Additional diagnosis detail: Traumatic ulcer of right lower leg with fat layer exposed Organism i solated in wound swab by culture 890443185 R89.5 Additional diagnosis detail: Wound swab culture positive Edema of foot 453261620 R60.0 Additional diagnosis detail: Pedal edema Stasis dermatitis 042787 05 I87.2 History of malignant neoplasm of larynx 959999010 Z85.21 Additional diagnosis detail: History of laryngeal cancer History of methicillin resistant Staphylococcus aureus infection 149045816 Z86.14 Additional diagnosis detail: History of MRSA infection History of blood disorder 598374851 Z87.898 Additional diagnosis detail: History of bruising easily [id number] Siddharth Price MD [facility] Wound Infectiou s [facility] ([place]) [address] [place] [phone] 04/16/2024 09:23:21 04/16/2024 15:01:27 Ulcer of lower extremity 74271958 L97.912 Additional diagnosis detail: Traumatic ulcer of right lower leg with fat layer exposed Organism i solated in wound swab by culture 768948343 R89.5 Additional diagnosis detail: Wound swab culture positive Edema of foot 925107261 R60.0 Additional diagnosis detail: Pedal edema Stasis dermatitis 528376 05 I87.2 History of malignant neoplasm of larynx 758868804 Z85.21 Additional diagnosis detail: History of laryngeal cancer History of methicillin resistant Staphylococcus aureus infection 224073807 Z86.14 Additional diagnosis detail: History of MRSA infection History of blood disorder 805488318 Z87.898 Additional diagnosis detail: History of bruising easily [id number] Natalia Wong, [facility] [address] [place] [address] [address] 04/24/2024 08:04:58 04/24/2024 09:03:46 Aphonia 174082078 R49.1 Marcelina is working towards a laryngeal [...] phageal phonation without risk of aspiration . [id number] Natalia Wong, [facility] [address] [place] [address] [address] 05/08/2024 08:00:54 05/08/2024 09:08:30 Aphonia 135018321 R49.1 Marcelina is working towards a laryngeal [...] assisted by Madhu Chacon, Speech-Daron guage Pathology Hand Bobbin Cleaner under 100% supervisio n. [id number] Siddharth Price MD [facility] Wound Infectiou s Disease ([place]) [address] [place] [phone] 05/14/2024 09:34:03 05/14/2024 14:36:27 Ulcer of lower extremity 27522972 L97.912 Additional diagnosis detail: Traumatic ulcer of right lower leg with fat layer exposed Edema of foot 255007703 R60.0 Additional diagnosis detail: Pedal edema Stasis dermatitis 420168 05 I87.2 History of malignant neoplasm of larynx 799148185 Z85.21 Additional diagnosis detail: History of laryngeal cancer History of methicillin resistant Staphylococcus aureus infection 644080139 Z86.14 Additional diagnosis detail: History of MRSA infection [id number] MD KIM Rice 2nd Pulm ([place]) [address] [facility],[address] [place] [address] 06/24/2024 09:29:31 06/24/2024 17:23:57 Nodule of lung 782894658 R91.1 Follow-up CT scan to reevaluate the nodule is impaired due to acute pneumonia of the left lower lobe. Previous PET scan was negative. Will need to arrange for a follow-up CT scan in 3 months, but I will arrange this after I see her back in a few weeks for recheck of her pneumonia. Chronic ob structive pulmonary disease 51757615 J44.9 For COPD she will continue DuoNeb with hypertonic saline for pulmonary hygiene. She is aware that she needs to let us know if she has any change in her sputum color or increase in secretions and will need to collect sputum for culture and sensitivit y. Malignant tumor of larynx 267013623 C32.9 Follow-up with ENT as scheduled. Pneumonia 586096299 J18. 9 He has a more acute [...] seek immediate medical attention if she worsens. [id number] MD KIM Rice 2nd [facility] [address] [place] [address] 06/24/2024 11:00:54 06/24/2024 17:31:23 Chronic obstructive pulmonary disease 42627006 J44.9 For COPD she will continue DuoNeb with hypertonic saline for pulmonary hygiene. She is aware that she needs to let us know if she has any change in her sputum color or increase in secretions and will need to collect sputum for culture and sensitivit y. [id number] Andrea Tolliver MD [facility] 2nd Pul ([place]) [address] [facility],[address] [place] [address] 08/06/2024 13:15:40 08/06/2024 16:50:07 Nodule of lung 819815655 R91.1 Follow-up CT scan to reevaluate the nodule is impaired due to acute pneumonia of the left lower lobe on recent CT scan from June. Previous PET scan was negative. Will need to arrange for a follow-up CT scan in 3 months. Chronic ob structive pulmonary disease 90015697 J44.9 For COPD she will continue DuoNeb with hypertonic saline for pulmonary hygiene. She is aware that she needs to let us know if she has any change in her sputum color or increase in secretions and will need to collect sputum for culture and sensitivit y. Vaccines are up-to-date . Malignant tumor of larynx 757720695 C32.9 Follow-up with ENT as scheduled. [id number] Andrea Tolliver MD [address] Pul ([place]) [address] [facility],[address] [place] [phone] 11/03/2024 13:28:41 11/03/2024 17:44:51 Chronic obstructive pulmonary disease 46501343 J44.9 For COPD she will continue arformoter ol twice daily DuoNeb with hypertonic saline for pulmonary hygiene. She is aware that she needs to let us know if she has any change in her sputum color or increase in secretions and will need to collect sputum for culture and sensitivit y. Vaccines are up-to-date . Malignant tumor of larynx 918272492 C32.9 Follow-up with ENT as scheduled. Pulmonary aspiration 680 02196 T17.908D She has had waxing and waning [...] her waxing and waning pulmonary infiltrate s. 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 Marcelina is working towards alaryngeal voice restoratio n. She is able to communicat e through electrolar ynx at the simple phrase level. 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 Patient was oriented an additional option today, the WYATT voice from [employer], and online interest form was completed Plan:Recom [...] Carrizales Member ID Guarantor Name 11/17/2024 1 [facility] (MEDICARE REPLACEMENT/ ADVANTAGE - PPO) [id number] Marcelina Carroll [id number] Marcelina Carroll Notes Date Note Type Note Provider Name and Address Organization Details Recorded Time 06/24/2024 text/html The patient is a 74-year-old female with a former 07-wrty-tfbo smoking history quit in 2003. She has [...] CT scan was done On 08/08 at [facility]. There is significant improvement in the partially [...] scan that was done on 11/03 at [facility]. She had resolution of the previously noted [...] running a little lower. Andrea Tolliver MD [facility] [place] [address], [phone], [facility] 06/24/2024 10:57:12 08/06/2024 text/html The patient is a 74-year-old female with a former 30-xtfe-vwpf smoking history quit in 2003. She has [...] CT scan was done On 08/08/23 at [facility]. There is significant improvement in the partially cavitary infiltrate in the right lower lobe as well as some improvement in the surrounding effusion. No progressive adenopathy appreciated previously noted right hilar and subcarinal adenopathy seems to be improved. She had a follow-up CT scan that was done on 11/04/23 at [facility]. She had resolution of the previously noted [...] nebulizers with a trach collar. Daniella chand, [facility] 08/06/2024 14:19:29 11/03/2024 text/html The patient is a 74-year-old female with a former 71-zjfd-uocj smoking history quit in 2003. She has [...] scan that was done on 11/04/23 at [facility]. She had resolution of the previously noted [...] weight and is going to see a tree cutter. 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 Andrea Tolliver MD [address] [facility], [place], [address], [facility] 11/03/2024 14:24:40 11/16/2024 text/html Marcelina Carroll is a 74 year-old woman seen for Speech-Language Pathology evaluation on 11/16/2024. Session began at 0725 and concluded at 0805. Speech evaluation and treatment was ordered by Dr. Brenner for aphonia with date of onset of 11/05/2024. 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 Natalia Wong, [facility] [address] [facility], [place], [address], [facility] 11/16/2024 09:07:51 OBGyn Episode No OBEpisode recorded.
--- NOTE | 2025-01-19 10:37 | ED_ITS ---
HPI - Abdominal Pain General Chief Complaint: Abdominal Pain Stated Complaint: abdominal pain Time Seen by Provider: 01/19/25 10:27 Source: patient Mode of arrival: ambulatory Limitations: other ( Patient does not speak secondary to her trach but comprehension is normal and she writes on a pad of paper) History of Present Illness HPI narrative: patient is a 74-year-old female with a trach and a PEG tube here for abdominal pain and displacement of her PEG tube multiple times at home (Recent attempt to stretch her esophagus and placement of PEG tube). Patient was here 3 days ago for similar complaint and was found to have her PEG tube in place by Gastrografin study and Reglan given for ileus (patient presented for PEG tube out of place and she put it back in as well as abdominal pain). She proceeded to go home for the last couple of days and have continued abdominal pain and bloating and was told to come back to the emergency room by her doctor. no fever or chills. She has been having diarrhea on and off over the past few days. No diarrhea today. Patient goes to [facility]. her PEG tube has been falling out over the past couple of days as well. She replaces it. She has been putting the PEG tube back in by herself and using it thereafter on her own. She left on Saturday with good results of a PEG tube in place but it is falling out multiple times since then and she has used it since then. MD elicited complaint: abdominal pain Pertinent past history: other ( Patient has trach and PEG tube, GERD) Onset (ago): day(s) ( 3) Pain Consistency: constant Location: diffuse Severity: mild Pain scale (0-10): 3 Quality: cramping, fullness and sharp Radiation: none Migration to: no migration Exacerbating factors: nothing Relieving factors: nothing Context: confirms other ( patient has continued abdominal pain since she was seen on Saturday for ileus and given Reglan; she has been passing stool with diarrhea over the past 2 days but not today; her PEG tube has fallen out 2-3 more times over the past 2 days as well) Associated symptoms: nausea and diarrhea Treatments prior to arrival: other ( Reglan has not resolved her abdominal pain but has produced some loose stools) Related Data Home Medications ?Medication ?Instructions ?Recorded ?Confirmed ?Last Taken ?Type albuterol sulfate 2.5 mg/3 mL 2.5 mg inhalation Q4-6H 04/15/22 03/09/24 Unknown History (0.083 %) solution for nebulization cetirizine 10 mg tablet 5 mg feeding tube DAILY 04/15/22 03/09/24 Unknown History famotidine 40 mg tablet 40 mg feeding tube DAILY 04/15/22 03/09/24 Unknown History lidocaine 5 % topical patch 1 patch transdermal Q12-24H 04/15/22 03/09/24 Unknown History metoprolol succinate 25 mg 25 mg PO DAILY 04/15/22 03/09/24 Unknown History tablet,extended release 24 hr omeprazole 40 mg capsule,delayed 40 mg feeding tube DAILY 04/15/22 03/09/24 Unknown History release trazodone 100 mg tablet 100 mg feeding tube HS 04/15/22 03/09/24 Unknown History amlodipine 5 mg tablet 2.5 mg feeding tube DAILY 03/09/24 03/09/24 Unknown History atorvastatin 40 mg tablet 40 mg PO DAILY 03/09/24 03/09/24 Unknown History montelukast 10 mg tablet 10 mg feeding tube DAILY 03/09/24 03/09/24 Unknown History Allergies Allergy/AdvReac Type Severity Reaction Status Date / Time No Known Allergies Allergy Verified 01/19/25 10:36 Review of Systems 2 Review of Systems: All systems reviewed & are unremarkable except as noted in HPI and below Constitutional: Constitutional: Reports no additional constitutional complaints Eyes: Eyes: Reports no additional eye complaints ENT: Reports system reviewed and no additional complaints, except as documented Cardiovascular: Cardiovascular: Reports no additional cardiovascular complaints Respiratory: Respiratory: Reports no additional respiratory complaints Gastrointestinal: Gastrointestinal: Reports no additional gastrointestinal complaints Genitourinary: Genitourinary: Reports no additional female genitourinary complaints Musculoskeletal: Musculoskeletal: Reports no additional musculoskeletal complaints Integumentary/Breasts: Skin/Breast: Reports system reviewed and no additional complaints, except as docu Neurologic: Reports system reviewed and no additional complaints, except as documented Psychiatric: Psychiatric: Reports no additional psychiatric complaints Endocrine: Endocrine: Reports no additional endocrine complaints Hematologic/Lymphatic: Hematologic/Lymphatic: Reports no additional hematologic/lymphatic complaints Allergic/Immunologic: Allergic/Immunologic: Reports no additional allergic/immunologic complaints PMFSH Past Medical History Medical History History of gastrostomy tube placement Chronic obstructive pulmonary disease with (acute) exacerbation Back pain Gastritis Chest pain of uncertain etiology Surgical History Surgical History History of tracheostomy Exam 2 Const: General: healthy appearing Nutritional Appearance: well nourished Orientation/consciousness: patient oriented x3 Limitations: no limitations HENMT: Head: normal to inspection Ears: external ears normal F tyler/Nose/Sinus: Normal external nose present Eyes: Conjunctivae: conjunctivae normal Pupils: Equal, round and reactive pupils present EOM: EOMs intact bilaterally Neck: Neck: normal visual inspection Chest: Chest palpation & inspection: normal inspection of the chest Resp: Effort & Inspection: normal respiratory effort and not labored A uscultation: clear to auscultation bilaterally and no crackles Cardio: Rate: regular rate Rhythm: regular rhythm Heart sounds: no murmurs GI: Inspection: non-distended GI Palp: Yes Soft to palpation, Yes Tenderness to palpation present (GI) ( Diffuse), No Guarding due to palpation present (GI), No Rigid due to palpation, No Hernia present, No Palpable mass present and No Rebound tenderness present Auscultation: normal bowel sounds : General: Yes bladder normal to palpation Back/Spine/Pelvis: Back: no CVA tenderness Skin: General skin exam: normal color Rashes: no rashes Wounds: no wounds Neuro: General: patient oriented x3, moves all extremities, no meningeal signs, no focal motor deficits and CN's II-XI intact bilaterally Cranial nerves: Yes Nystagmus not present Speech: No normal speech Gait exam (Neuro): Normal gait present Other: no speech secondary to PEG tube and chronic aphasia Extrem: General: normal to inspection Psych: Mental Status: mental status grossly normal Affect: normal affect Attitude: cooperative Course Vital Signs Vital signs: Vital Signs Temperature 36.6 C 01/19/25 10:24 Pulse Rate 98 01/19/25 10:24 Respiratory Rate 18 01/19/25 10:24 Blood Pressure 151/81 H 01/19/25 10:24 Pulse Oximetry 97 01/19/25 10:24 Oxygen Delivery Room Air 01/19/25 10:24 Temperature 36.7 C 01/19/25 11:59 Pulse Rate 80 01/19/25 13:00 Respiratory Rate 18 01/19/25 13:00 Blood Pressure 135/65 07/15/25 13:00 Pulse Oximetry 97 01/19/25 13:00 Oxygen Delivery Room Air 01/19/25 13:00 MDM - Abdominal Pain MDM Narrative Medical decision making narrative: patient is a 74-year-old female with abdominal pain and PEG tube displacement multiple times at home. She was seen on Saturday for similar and cleared to go home. We will extend our research today on the patient with CT scan and labs. We will call [facility] and her plant ecologist for further disposition planning. [facility] declined due to them not being the last doctor to touch her G-tube. The last doctor to touch her G-tube was [facility] gastroenterology. We called [facility] and awaiting a call back. Patient did not want to wait any longer and said she would leave AMA. I explained AMA leaving at this time is a bad idea due to the fact that she has a PEG tube that is loose and leaking and possibly not placed properly at this time as she replaced it herself over the last couple of days. I explained she should not use this tube until GI has seen her and made a plan for a new tube as this 1 appears malfunctioning. Workup for abdominal pain was benign at this time and no obstruction appreciated. She likely has abdominal pain for the G-tube coming in and out recurrent [place] and irritation secondary to that happening. She understands that severe illness could occur if the feeding or using the G-tube leaks into her abdomen. Patient has decision-making capacity and reasoning ability at this time to make her own decisions. She is AAO x4. Risks and consequences were reviewed with the patient. Benefits of continued treatment were reviewed with the patient. Patient chose to sign AMA and see the GI doctor on her own for a plan. She had an early UTI possibly and we cannot give her anything per the PEG tube and she left AMA. We will wait for urine culture and decide if antibiotics will be needed and hopefully she will have a working PEG tube at that time. Lab Data Attestation: I reviewed the patient's lab results. 01/19/25 10:43 01/19/25 10:43 Labs: Lab Results 01/19/25 01/19/25 Range/Units 10:37 10:43 WBC 3.7 L (4.8-10.8) K/mm3 RBC 4.61 (4.20-5.40) M/mm3 Hgb 12.6 (11.7-13.8) g/dL Hct 40.0 (35.0-42.0) % MCV 86.8 (78.0-102.0) fL MCH 27.3 (27.0-31.0) pg MCHC 31.5 L (32-36) g/dL RDW 14.1 (11.6-14.4) % Plt Count 179 (150-420) K/mm3 MPV 9.7 (9.2-11.8) fl Immature Gran % (Auto) Not Reportable Neut % (Auto) Not Reportable Lymph % (Auto) Not Reportable [place] % (Auto) Not Reportable Eos % (Auto) Not Reportable Baso % (Auto) Not Reportable Lymph # (Auto) Not Reportable [place] # (Auto) Not Reportable Eos # (Auto) Not Reportable Baso # (Auto) Not Reportable Abs Immat Gran (auto) Not Reportable Absolute Neuts (auto) Not Reportable Absolute Nucleated RBC Not Reportable Total Counted 100 Neutrophils % (Manual) 76 H (46-73) % Band Neutrophils % 0 (0-6) % Lymphocytes % (Manual) 13 L (18-44) % Monocytes % (Manual) 8 (3-9) % Eosinophils % (Manual) 1 (1-6) % Basophils % (Manual) 2 H (0-1) % Nucleated RBC % Not Reportable Abs Neuts (Manual) 2.81 (1.3-6.7) K/mm3 Abs Lymphs (Manual) 0.48 L (1.1-4.5) K/mm3 Abs Monocytes (Manual) 0.29 (0.1-0.90) K/mm3 Absolute Eos (Manual) 0.03 (0.02-0.50) K/mm3 Abs Basophils (Manual) 0.07 (0-0.1) K/mm3 Platelet Estimate Adequate (Adequate) Schistocytes Not Reportable Sodium 138 (137-145) mmol/L Potassium 4.0 (3.4-5.0) mmol/L Chloride 98 (98-107) mmol/L Carbon Dioxide 32 H (22-30) mmol/L Anion Gap 8 (4-12) mmol/L BUN 24 H (7-17) mg/dL Creatinine 1.03 H (0.7-1.0) mg/dL Estim Creat Clear Calc 36 ml/min Estimated GFR 53 L (59 - ) Glucose 102 (65-110) mg/dL Calculated Osmolality 290 (285-295) mOsm/kg Calcium 9.3 (8.4-10.2) mg/dL Total Bilirubin 0.4 (0.2-1.3) mg/dL AST 28 (14-36) U/L ALT 15 (6-35) U/L Alkaline Phosphatase 78 (38-126) U/L Troponin I < 0.012 (0.000-0.034) ng/mL Total Protein 7.4 (6.3-8.2) g/dL Albumin 4.4 (3.5-5.1) g/dL Urine Color Light yellow (Yellow) Urine Appearance Clear (Clear) Urine pH 7.0 (5.0-8.0) Ur Specific [place] <= 1.005 L (1.010-1.020) Urine Protein Negative (Negative) Urine Glucose (UA) Negative (Negative) Urine Ketones Negative (Negative) Ur Blood (Man) Negative (Negative) Urine Nitrate Negative (Negative) Urine Bilirubin Negative (Negative) Urine Urobilinogen 0.2 (0.2-1.0) mg/dL Leukocyte Esterase Rfl 3+ H (Negative) DUSTIN/UL Urine RBC None seen (0-2) /hpf Urine WBC 0-3 (0-3) /hpf Ur Squamous Epith Cells Few (Few) /hpf Urine Bacteria Trace (None) /hpf Imaging Data Attestation: I personally reviewed and interpreted this imaging study as follows: Radiologist's impression: ITS Impressions Abdomen/Pelvis CT 01/19/25 11:39 Impression: Distended stomach with percutaneous gastrostomy tube in place. No definite evidence for obstructing lesion. Correlate clinically. Minimal tree-in-bud opacities at the lower lobes bilaterally. Correlate for small airways infectious process. Chest X-Ray 01/19/25 12:16 IMPRESSION: No acute cardiopulmonary pathology. ECG Data EKG #1: Attestation: I personally reviewed and interpreted this ECG as follows: ECG completion date: 01/19/25 ECG completion time: 11:41 normal rate, sinus rhythm, no ectopy, non-specific ST changes, normal QRS, normal QT and NL axis ( Equivocal) Discharge Plan Discharge Clinical Impression: Complaint associated with gastric tube, Acute UTI Abdominal pain Qualifiers: Abdominal location: generalized Qualified Code(s): R10.84 - Generalized abdominal pain Patient Disposition: Left Against Medical Advice Condition: Stable Patient Language: Belgian Prescriptions: No Action albuterol sulfate 2.5 mg /3 mL (0.083 %) solution for nebulization 2.5 mg inhalation Q4-6H cetirizine 10 mg tablet 5 mg feeding tube DAILY famotidine 40 mg tablet 40 mg feeding tube DAILY omeprazole 40 mg capsule,delayed release(DR/EC) 40 mg feeding tube DAILY trazodone 100 mg tablet 100 mg feeding tube HS lidocaine 5 % adhesive patch,medicated 1 patch transdermal Q12-24H Rx Instructions: off at HS metoprolol succinate 25 mg tablet extended release 24 hr 25 mg PO DAILY acetaminophen [Tylenol] 325 mg capsule 650 mg PO Q8H PRN (Reason: pain) Qty: 20 0RF omeprazole magnesium [Prilosec OTC] 20 mg tablet,delayed release (DR/EC) 20 mg PO BID Qty: 20 0RF atorvastatin 40 mg tablet 40 mg PO DAILY amlodipine 5 mg tablet 2.5 mg feeding tube DAILY montelukast 10 mg tablet 10 mg feeding tube DAILY metoclopramide HCl [Reglan] 10 mg tablet 10 mg feeding tube TID PRN (Reason: abdominal discomfort) Qty: 20 0RF Follow-up/Referrals: Ema Hinkle MD [Primary Care Provider] - Time of Disposition: 14:25
[2025-01-19 10:49] LABS: Hematocrit 40.0 % (35.0-42.0); Hemoglobin 12.6 g/dL (11.7-13.8); Mean Corpuscular HGB Conc 31.5 g/dL (32-36); Mean Corpuscular Hemoglobin 27.3 pg (27.0-31.0); Mean Corpuscular Volume 86.8 fL (78.0-102.0); Platelet Count Result 179 K/mm3 (150-420); Red Blood Count 4.61 M/mm3 (4.20-5.40); White Blood Count 3.7 K/mm3 (4.8-10.8)
[2025-01-19 11:02] LABS: Alanine Aminotransferase 15 U/L (6-35); Albumin Level 4.4 g/dL (3.5-5.1); Alkaline Phosphatase 78 U/L (38-126); Anion Gap 8 mmol/L (4-12); Aspartate Amino Transferase 28 U/L (14-36); Bilirubin,Total 0.4 mg/dL (0.2-1.3); Blood Urea Nitrogen 24 mg/dL (7-17); Calcium 9.3 mg/dL (8.4-10.2); Carbon Dioxide 32 mmol/L (22-30); Chloride 98 mmol/L (98-107); Estimated CRCL calculation 36 ml/min; Estimated Glomerular Filt Rate 53; Glucose 102 mg/dL (65-110); Osmolality Calculated 290 mOsm/kg (285-295); Potassium 4.0 mmol/L (3.4-5.0); Sodium 138 mmol/L (137-145); Total Protein 7.4 g/dL (6.3-8.2)
[2025-01-19 11:12] LABS: Add Urine Microscopic? YES; Appearance Urine Clear (Clear); Glucose Urine UA Negative (Negative); Leukocyte Esterase Ur 3+ LEU/UL (Negative); Nitrate Urine Negative (Negative); Specific Grav Ur <= 1.005 (1.010-1.020)
[2025-01-19 11:14] LABS: Troponin I < 0.012 ng/mL (0.000-0.034)
[2025-01-19 11:16] LABS: Band Neutrophils Percent 0 % (0-6); Basophils Absolute Manual 0.07 K/mm3 (0-0.1); Basophils Percent Manual 2 % (0-1); Eosinophils Absolute Manual 0.03 K/mm3 (0.02-0.50); Eosinophils Percent Manual 1 % (1-6); Lymphocytes Absolute Manual 0.48 K/mm3 (1.1-4.5); Lymphocytes Percent Manual 13 % (18-44); Monocytes Absolute Manual 0.29 K/mm3 (0.1-0.90); Monocytes Percent Manual 8 % (3-9); Neutrophils Absolute Manual 2.81 K/mm3 (1.3-6.7); Neutrophils Percent Manual 76 % (46-73); Total Cells Counted 100
--- OUTSIDE RECORDS SUMMARY | 2025-01-19 11:26 | XMS_ITS | Clinical Summary ---
Author Organization [facility] [employer] Address [address] [place] [address] Care Team Providers Care Vp [employer] [place] Name Role Phone Ema Hinkle MD Primary Care Provider Source Comments [facility] [facility],non-[facility] [place] Affiliates and Associated Physician Practices is amultiple site organization consisting of ambulatory clinics and hospital sitesin [place], [place] and [place]. This disclosure is being madepursuant to the Care Everywhere program and may not contain all information available regarding this patient. Last updated 18.[employer] Allergies Active Allergy Reactions Criticality Noted Date [...] mouth daily before breakfast Active nystatin (Mycostatin) 272828 UNIT/GM ointment APPLY OINTMENT TOPICALLY TWO TIMES DAILY AND USE FOR 48 HOURS AFTER RASH IS GONE 5 Active HYDROcodone-tyler taminophen (Odin) 5-325 MG tablet TAKE 1 TO 2 [...] fluticasone propionate (FLONASE) 50 MCG/ACT nasal spray [place] 2 sprays into each nostril once daily [...] Description 01/06/2025 9:29 AM CDT Anesthesia Event [facility] [address] [place] [address] Sam Alvarez, Enedelia Navarro, [employer] 01/06/2025 8:45 AM CDT - 01/06/2025 1:35 PM CDT Surgery [facility] [address] [place] [address] Gerald Gupta MD DIRECT LARYNGOSCOPY 01/06/2025 6:28 AM CDT - 01/08/2025 10:11 AM CDT Hospital Encounter [facility] SHORT STAY UNIT [address] [place] [address] Gerald Gupta MD Veeramachaneni, Nirmal K, MD Surgery General Discharge Disposition: Home or Self Care 01/06/2025 Travel 12/28/2024 3:00 PM CDT Office Visit [facility] - Cardiothoracic Surgery [address] [place] [address] Shon Fraga MD Oropharyngeal dysphagia (Primary Dx) 12/28/2024 1:00 PM CDT - 12/28/2024 11:59 PM CDT Hospital Encounter [facility] PAT [address] [place] [address] Gerald Gupta MD Discharge Disposition: Home or Self Care 12/28/2024 Travel 12/10/2024 9:34 AM CDT - 12/10/2024 11:59 PM CDT Hospital Encounter [facility] Discharge Disposition: Home or Self Care 12/02/2024 Travel 12/01/2024 Travel 11/27/2024 1:21 PM CDT - 11/27/2024 11:59 PM CDT Hospital Encounter [facility] Imaging Discharge Disposition: Home or Self Care 11/27/2024 1:21 PM CDT - 11/27/2024 11:59 PM CDT Hospital Encounter [facility] Imaging Discharge Disposition: Home or Self Care 11/27/2024 1:21 PM CDT - 11/27/2024 11:59 PM CDT Hospital Encounter [facility] Outside Imaging Discharge Disposition: Home or Self Care 11/27/2024 1:17 PM CDT - 11/27/2024 1:20 PM CDT Hospital Encounter [facility] Outside Imaging Discharge Disposition: Home or Self Care 11/25/2024 2:30 PM CDT Office Visit [facility] - Otolaryngology [address] [facility] [address] [place] [id number] Gerald Gupta MD Esophageal stenosis (Primary Dx); Pharyngeal dysphagia; Gastrostomy tube dependent (HCC); History of laryngectomy; History of head and neck radiation 11/25/2024 Travel 11/11/2024 Telephone [facility] - ENT [address], [address] [place] [address] Gerald Gupta MD Appointment 11/09/2024 Telephone [facility] - ENT [address], [facility] [address] [place] [address] Gerald Gupta MD Appointment 11/05/2024 Telephone [facility] - ENT [address], [facility] [address] [place] [address] Gerald Gupta MD Appointment from [...] Recorded Patient Health Questionnaire-2 Score 0 12/28/2024 [facility] [place] [facility] Occupat ional Health - Occupational Stress [...] any time in the past 12 m [facility], were you homeless or living in a care home (including now)? No 01/07/2025 Comments No [...] Office Visit [facility] - Otolaryngology [address] [place] [address] [place] [address] [place] [address] Health Maintenance Due Date Last [...] TUBE NOTE Routine 01/06/2025 10:09 AM CDT SD ED EGD FLEX TRANSORAL DX 01/06/2025 8:59 AM CDT Esophageal stenosis Pharyngeal dysphagia Status post gastrostomy tube placement, follow-up exam History of laryngectomy History of head and neck radiation Case Notes Joint case with Dr. Fraga Special [facility]eds GI endo tower, [id number] (Ultraslim) flexible gastroscope from endoscopy, CRE balloons 12/31 SUPINE C-ARM ENDOSCOPIC VIDEO CART, GASTROSCOPE, PEDIATRIC GASTROSOCPE, FLUOROSCOPY Farrell Bag EGD, STUFF FOR SCOPY Hegar Dilators / CRE Balloons SD ESOPHAGOSCOPY FLEX TRANSORAL W BX 01/06/2025 8:59 AM CDT Esophageal stenosis Pharyngeal dysphagia Status post gastrostomy tube placement, follow-up exam History of laryngectomy History of head and neck radiation Case Notes Joint case with Dr. Fraga Special [facility]eds GI endo tower, [id number] (Ultraslim) flexible gastroscope from endoscopy, CRE balloons 12/31 SUPINE C-ARM ENDOSCOPIC VIDEO CART, GASTROSCOPE, PEDIATRIC GASTROSOCPE, FLUOROSCOPY Farrell Bag EGD, STUFF FOR SCOPY Hegar Dilators / CRE Balloons SD LARYNGOSCOPY,DIRECT ,DIAGNOSTIC 01/06/2025 8:59 AM CDT Esophageal stenosis Pharyngeal dysphagia Status post gastrostomy tube placement, follow-up exam History of laryngectomy History of head and neck radiation Case Notes Joint case with Dr. Fraga Special Needs GI endo tower, [id number] (Ultraslim) flexible gastroscope from endoscopy, CRE balloons [...] Event Date/Time: 01/06/2025 9:40 AM Procedure: intubation (49411) Procedure Section: Sedation: under general anesthesia. Indications [...] O POS 01/06/2025 9:4 6 AM CDT [facility] Blood Bank BLOOD SPECIMEN / Unknown Line Draw / Unknown 01/06/2025 8:51 AM CDT 01/06/2025 8:53 AM CDT Sam Alvarez DO LAB - BLOOD BANK ORDERABLE S Final Result [facility] [address] [place] [address], [facility] [phone] * TYPE + SCREEN PANEL (01/06/2025 8:40 AM CDT) Antibody Screen NEG 9:42 AM CDT [facility] ABO Rh O POS 01/06/2025 9:42 AM CDT [facility] Blood Bank BLOOD SPECIMEN / Unknown Venipuncture / Unknown 01/06/2025 8:40 AM CDT 01/06/2025 8:48 AM CDT Sam Alvarez DO LAB - BLOOD BANK ORDERABLE S Final Result Performing Organization Address City/[facility]/ZIP Co de Phone Number [facility] [address] [place] [address], [facility] [phone] * (ABNORMAL) CBC W/O DIFFERENTIAL (01/06/2025 8:40 AM CDT) WBC 5.6 4.0 - 10.7 x10E9/L 01/06/2025 8:59 AM [facility] RBC Count 4.03 3.90 - 5.20 x10E12/L 01/06/2025 8:59 AM [facility] Hemoglobin 11.1(L) 11.9 - 15.8 g/dL 01/06/2025 8:59 AM [facility] Hematocrit 33.9(L) 34.8 - 46.1 % 01/06/2025 8:59 AM [facility] MCV 84.1 80.0 - 98.0 fL 01/06/2025 8:59 AM [facility] MCH 27.5 26.7 - 33.6 pg 01/06/2025 8:59 AM [facility] MCHC 32.7 31.7 - 36.3 g/dL 01/06/2025 8:59 AM [facility] RDW-CV 14.0 11.3 - 14.8 % 01/06/2025 8:59 AM [facility] Platelet Count 152 150 - 420 x10E9/L 01/06/2025 8:59 AM [facility] MPV 10.5 7.8 - 11.4 fL 01/06/2025 8:59 AM [facility] Blood BLOOD SPECIMEN / Unknown Venipuncture / Unknown 01/06/2025 8:40 AM CDT 01/06/2025 8:51 AM CDT us Sam Alvarez DO LAB - HEMATOLOGY ORDERABLE S Final Result [facility] [address] [place] [address], [facility] [phone] * (ABNORMAL) BASIC METABOLIC PANEL (CALCIUM TOTAL) (01/06/2025 8:40 AM CDT) BUN 25 7 - 26 mg/dL 01/06/2025 9:16 AM [facility] Creatinine 0.91 0.56 - 0.96 mg/dL 01/06/2025 9:16 AM [facility] Sodium 136 136 - 145 mmol/L 01/06/2025 9:16 AM [facility] Potassium 4.1 3.5 - 4.5 mmol/L 01/06/2025 9:16 AM [facility] Chloride 103 98 - 107 mmol/L 01/06/2025 9:16 AM [facility] CO2 28 22 - 29 mmol/L 01/06/2025 9:16 AM [facility] Glucose 97 70 - 99 mg/dL 01/06/2025 9:16 AM [facility] Calcium 9.0 8.4 - 10.2 mg/dL 01/06/2025 9:16 AM [facility] Anion Gap 5(L) 6 - 16 01/06/2025 9:16 AM [facility] BUN/Creatinine Ratio 27(H) 7 - 23 01/06/2025 9:16 AM [facility] Osmolality Calculated 286 275 - 295 mOsm/kg 01/06/2025 9:16 AM T [facility] eGFR by CKD-EPI 67(L) >=90 mL/min/1.7 3 m2 01/06/2025 9:16 AM T [facility] Comment:Estimated Glomerular Filtration Rate (eGFR) calculated using the CKD-EPI Creatinine Equation (2020), per the National Kidney Foundation and [place] [employer] Nephrology recommendations. Blood BLOOD SPECIMEN / Unknown Venipuncture / Unknown 01/06/2025 8:40 AM CDT 01/06/2025 8:51 AM CDT us Sam Alvarez DO LAB - CHEMISTRY ORDERABLES Final Result [facility] [address] [place] [address], [facility] [phone] from Last 3 Months Additional Health Concerns Infection Onset Date Last Indicated ESBL Hx Comment:Added from external infection. Source: [facility]. 07/04/2023 Insurance [facility] Advance Directives * Full Code (Latest Code Status on File) Date Activated Date Inactivated Comments 01/06/2025 11:03 AM 01/08/2025 11:18 AM Care Teams Vp [employer] Relationship Specialty Start Date End Date Ema Hinkle MD PCP - General Family Medicine 04/15/18
--- OUTSIDE RECORDS SUMMARY | 2025-01-19 11:26 | XMS_ITS | Clinical Summary ---
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 COPD exacerbation ([facility]) 11/17/2021 Weight loss 07/28/2018 Overview (07/28/2018): Significant [...] Overview (07/25/2018): 1.9cm blocking airways Fatigue Asthma ([facility]) Essential hypertension Endometriosis Posterior glottic stenosis Overview [...] 1 Other Son 2 killed by drunk sanitation truck driver CHF Neg Hx Diabetes Neg [...] on file Legal Sex Female 9:49 PM DIRECTOR HRIS Gender Identity Not on file Sexual Orientation [...] 8:39 AM CDT Height 162.6 cm (5' 4) 04/15/2023 8:39 AM CDT Body Mass Index [...] George RN Medical Devices Implanted Type Area Information Management Manager Device Identifier Shelf Expiration Date Model / Serial / Lot Lens Lens Description:Bilateral eyes Pin Pin Description:Dental upper imp lants Graft Soft Tissue Amniofix Purion Amniotic Membrane Particulate Nonimmunogenic Injectable 40mg - [id number] Implanted:Qty: 1 on 06/02/2021 by Marti Neely MD,PHD at [facility] Tissue N/A: Throat MIMEDX 09/05/2025 [id number] / [id number] / Endovive Safety Peg Percutaneous Endoscopic Gastrostomy Kit Implanted:Qty: 1 on 12/21/2021 by Alyssia De Los Santos MD at [facility] Tube Implant Left: Abdomen Teal Orbit [id number] 11/04/2022 [id number] / [id number] / [id number] Description:PEG Tube to abdo men LUQ Placental Tissue Membrane Implanted:Qty: 1 on 04/05/2022 by Marti Neely MD,PHD at [facility] N/A: Larynx XOJET [id number] 06/16/2026 [id number] / / [id number] Shiley Adult Flexible Tracheostomy Tube Cuffless Implanted:Qty: 1 on 04/05/2022 by Marti Neely MD,PHD at [facility] N/A: Trachea COVIDIEN [id number] 03/02/2026 [id number] / / [id number] Fibrin Sealant (Human) Vistaseal Implanted:Qty: 1 on 08/23/2022 by Marti Neely MD,PHD at [facility] N/A: Throat [id number] 03/18/2024 [id number] / [id number] / [id number] Biodfence Placental Tissue Membrane Implanted:Qty: 1 on 08/23/2022 by Marti Neely MD,PHD at [facility] N/A: Throat na 04/10/2027 [id number] / / [id number] Explanted Type Area Information Management Manager Device Identifier Shelf Expiration Date Model / Serial / Lot Brody Laryngeal Stent Medium Explanted:Qty: 1 on 01/31/2023 at [facility] N/A: Larynx [facility] [...] Extended Spectrum Beta-lactamase 07/04/20 23 07/04/2023 Insurance [facility] Advance Directives * Full Code (Latest Code Status on File) Date Activated Date Inactivated Comments 12/16/2021 2:47 PM 12/27/2021 3:39 PM * Full Code Date Activated Date Inactivated Comments 12/12/2021 7:47 PM 12/16/2021 2:47 PM * Full Code Date Activated Date Inactivated Comments 11/17/2021 3:16 PM 11/18/2021 2:14 PM Care Teams Construction Inspector Relationship Specialty Start Date End Date Ema Hinkle MD [address] [place] [address] PCP - General FAMILY PRACTICE 07/24/18 Quincy Joy MD [address] [place] [address] RADIATION ONCOLOGY 07/24/18 Montserrat Ott MD [address] [facility] [place] [address] OTOLARYNGOLOGY 07/25/18 Marti Neely MD,PHD [address] [place] [address] Consulting Physician OTOLARYNGOLOGY 02/10/20
--- OUTSIDE RECORDS SUMMARY | 2025-01-19 11:26 | XMS_ITS | Encounter Summary ---
Author Organization [facility] Address [facility] [place] [address] Care Team Providers Care Resident Buyer Name Role Phone Ema Hinkle MD Primary Care Provider [phone] Quincy Joy MD Unavailable [phone] Montserrat Ott MD Unavailable Unavailable Marti Neely MD,PHD Unavailable + [phone] Encounter Details Date Type Department Care Team (Late st Contact Info) Description 05/22/2023 [facility] [place] Documentation 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
--- OUTSIDE RECORDS SUMMARY | 2025-01-19 11:26 | XMS_ITS | Encounter Summary ---
Author Organization [facility] Address [facility] [place] [address] Care Team Providers Care Trumpet Teacher Name Role Phone Ema Hinkle MD Primary Care Provider [phone] Quincy Joy MD Unavailable [phone] Montserrat Ott MD Unavailable Unavailable Marti Neely MD,PHD Unavailable + [phone] Encounter Details Date Type Department Care Team (Late st Contact Info) Description 12/13/2018 Abstract [facility] CONVERSION [address] [place] [address] , Generic Conversion, Social History [...] on file Legal Sex Female 9:49 PM COMMODITIES TRADER Gender Identity Not on file Sexual Orientation Not on file documented as of this encounter Plan of Treatment Not on file documented as of this encounter Visit Diagnoses Not on filedocumented in this encounter Additional Health Concerns Infection Onset Date Last Indicated Resolved Time COVID-19 Rule Out 01/11/2020 01/11/2020 01/12/2020 6:49 PM CDT COVID-19 Confirmed Comment:Per documentation 08/09/2020 08/09/2020 09/03/2020 12: 34 AM COMMODITIES TRADER COVID-19 Rule Out 05/30/2021 05/30/2021 05/30/2021 7:32 PM COMMODITIES TRADER COVID-19 Rule Out 12/11/2021 12/11/2021 12/12/2021 7:07 PM CDT COVID-19 Rule Out 04/15/2023 04/15/2023 04/15/2023 9:53 AM CDT ESBL - Extended Spectrum Beta-lactamase 07/04/2023 07/04/2023 documented as of this encounter Care Teams Trumpet Teacher Relationship Specialty Start Date End Date Ema Hinkle MD [address] [place] [address] PCP - General FAMILY PRACTICE 07/24/18 Quincy Joy MD [address] [place] [address] RADIATION ONCOLOGY 07/24/18 Montserrat Ott MD [address] [place] [address] OTOLARYNGOLOGY 07/25/18 Marti Neely MD,PHD [address] [place] [address] Consulting Physician OTOLARYNGOLOGY 02/10/20 documented as of this encounter
--- OUTSIDE RECORDS SUMMARY | 2025-01-19 11:26 | XMS_ITS | Encounter Summary ---
Author Organization [facility] Address [facility] [place] [address] Care Team Providers Care Deputy Grand Jury Name Role Phone Ema Hinkle MD Primary Care Provider [phone] Quincy Joy MD Unavailable [phone] Montserrat Ott MD Unavailable Unavailable Marti Neely MD,PHD Unavailable + [phone] Encounter Details Date Type Department Care Team (Late st Contact Info) Description 05/06/2019 Community Orders [facility] Magdi Melvin MD [address] [place], [place] [address] Social History Tobacco Use Types Packs/Day Years [...] on file Legal Sex Female 9:49 PM CABLE 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 Gender Identity Not on file Sexual [...] documentation 08/09/2020 08/09/2020 09/03/2020 12: 34 AM CABLE ENGINEER COVID-19 Rule Out 05/30/2021 05/30/2021 05/30/2021 7:32 PM CABLE ENGINEER COVID-19 Rule Out 12/11/2021 12/11/2021 12/12/2021 7:07 PM CDT COVID-19 Rule Out 04/15/2023 04/15/2023 04/15/2023 9:53 AM CDT ESBL - Extended Spectrum Beta-lactamase 07/04/2023 07/04/2023 documented as of this encounter Care Teams Deputy Grand Jury Relationship Specialty Start Date End Date Ema Hinkle MD [address] [facility] [place] [address] PCP - General FAMILY PRACTICE 07/24/18 Quincy Joy MD [address] [place] [address] RADIATION ONCOLOGY 07/24/18 Montserrat Ott MD [address] [facility] [place] [address] OTOLARYNGOLOGY 07/25/18 Marti Neely MD,PHD [address] [place] [address] Consulting Physician OTOLARYNGOLOGY 02/10/20 documented as of this encounter
--- OUTSIDE RECORDS SUMMARY | 2025-01-19 11:26 | XMS_ITS | Encounter Summary ---
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 Gender Identity Not on file Sexual Orientation [...] documentation 08/09/2020 08/09/2020 09/03/2020 12: 34 AM AFLOAT CRYPTOLOGIC MANAGER COVID-19 Rule Out 05/30/2021 05/30/2021 05/30/2021 7:32 PM AFLOAT CRYPTOLOGIC MANAGER COVID-19 Rule Out 12/11/2021 12/11/2021 12/12/2021 7:07 PM CDT COVID-19 Rule Out 04/15/2023 04/15/2023 04/15/2023 9:53 AM CDT ESBL - Extended Spectrum Beta-lactamase 07/04/2023 07/04/2023 documented as of this encounter Care Teams Nurse Obgyn Relationship Specialty Start Date End Date Ema Hinkle MD [address] [place] [address] PCP - General FAMILY PRACTICE 07/24/18 Quincy Joy MD [address] [facility] [place] [address] RADIATION ONCOLOGY 07/24/18 Montserrat Ott MD [address] [place] [address] OTOLARYNGOLOGY 07/25/18 Marti Neely MD,PHD [address] [place] [address] Consulting Physician OTOLARYNGOLOGY 02/10/20 documented as of this encounter
--- OUTSIDE RECORDS SUMMARY | 2025-01-19 11:27 | XMS_ITS ---
Author Organization Unknown Address [address] [place] [phone] Phone Care Team Providers Care Proof Press Operator Name Role Phone WATSONBRIAN LEOS Attending Unavailable [...] 208 CVX Pneumococcal conjugate PCV20 , polysaccharide [id number] conjugate, adjuvant, PF 11/16/2022 Completed 216 CVX Social History Type Status Start Date End Date Code Code Syst em Smoking History Never smoker (Never Smoked) [id number] SNOMED CT Sex Female Hospital Discharge Instructions [...]
[2025-01-19 11:59] VITALS: BP 129/77; PULSE 75; RESP 18; TEMP 36.7; O2SAT 98
[2025-01-19 13:00] VITALS: BP 135/65; PULSE 80; RESP 18; O2SAT 97
--- NOTE | 2025-01-21 12:58 | PC.NURSE ---
final urine culture reviewed. mixed urogenital shayy, <10,000 colonies. no change in plan of care
== END 2025-01-19 14:00 | disposition left against medical advice (07) ==
PROVIDERS: Emergency Provider Emergency Medicine; PCP Family Medicine
DX: N39.0 Urinary tract infection, site not specified (principal); R10.84 Generalized abdominal pain; Z43.1 Encounter for attention to gastrostomy
CPT/HCPCS: 36415; 71046; 74176; 80053; 81001; 84484; 85025; 87086; 93005; 99284